=== PATIENT | female | born 1950 | race Caucasian/White ===

== ENCOUNTER 2016-09-17 07:18 | Emergency (ER) | payer MEDICARE, OTHER ==
[2016-09-17] MEDS ORDERED: IPRATROPIUM-ALBUTEROL 3 ML NEB INHALATION STA (07:45)
--- NOTE | 2016-09-17 08:08 | ED ---
URI HPI - General Chief Complaint: Upper Respiratory Infection Stated Complaint: Hx BRONCHITIS, STILL NOT FEELING WELL Time Seen by Provider: 09/17/16 07:32 Source: patient, RN notes reviewed Mode of arrival: ambulatory Limitations: no limitations - History of Present Illness Initial Comments: This is a 66-year-old female with a history of being a smoker many years ago who states she was treated 3 days ago by the nurse practitioner at her doctor's office she was placed on steroids on Zithromax and other medication states she is having worsening symptoms some right CVA area pain especially when she coughs increasing cough. Some phlegm production. The pain is 8/10 which is when she does cough. She denies any overt fevers chills or sweats at this time. MD Complaint: cough, other - Related Data Home Medications Medication Instructions Recorded Confirmed ALPRAZolam [Xanax] 0.25 mg PO Q8HR 09/17/16 09/17/16 Albuterol Inhaler [Ventolin Hfa 1 - 2 puff INHALATION Q6HR PRN 09/17/16 09/17/16 Inhaler] Albuterol Nebulized [Ventolin 2.5 mg INHALATION Q4H 09/17/16 09/17/16 Nebulized] Atorvastatin [Lipitor] 10 mg PO DAILY 09/17/16 09/17/16 Azithromycin [Zithromax] 1 gm PO 09/17/16 Calcium Carbonate [Calcium] 600 mg PO 09/17/16 Citalopram Hydrobromide [CeleXA] 20 mg PO DAILY 09/17/16 09/17/16 DULoxetine HCL [Cymbalta] 60 mg PO DAILY 09/17/16 09/17/16 Dicyclomine [Bentyl] 20 mg PO QID 09/17/16 09/17/16 Esomeprazole Magnesium [NexIUM 22.3 mg PO DAILY 09/17/16 09/17/16 24Hr] Fluticasone/Salmeterol [Advair 1 inhalation PO BID 09/17/16 09/17/16 250-50 Diskus] Hyoscyamine Sulfate [Levbid] 0.375 mg PO BID 09/17/16 09/17/16 Levothyroxine Sodium [Synthroid] 100 mcg PO 09/17/16 Multivitamins, Thera [Multivitamin] 1 tab PO DAILY 09/17/16 09/17/16 [place]-3 Fatty Acids/Fish Oil [Fish 1 each PO 09/17/16 Oil 1,000 mg Softgel] Promethazine HCl/Codeine 5 ml PO 09/17/16 [Prometh-Codein 6.25-10 mg/5 ml] Risedronate Sodium [Actonel] 150 mg PO QMONTH 09/17/16 09/17/16 SUMAtriptan SUCCINATE [Imitrex] 25 mg PO 09/17/16 predniSONE [Deltasone] 20 mg PO BID 09/17/16 09/17/16 Previous Rx's Medication Instructions Recorded Albuterol Sulfate [Proair Hfa] 2 puff INHALATION Q6HR PRN #1 09/17/16 inhaler predniSONE 20 mg PO BID #10 tab 09/17/16 Allergies Allergy/AdvReac Type Severity Reaction Status Date / Time adhesive tape Allergy Unknown Verified 09/17/16 07:28 Review of Systems ROS Statement: Those systems with pertinent positive or pertinent negative responses have been documented in the HPI. ROS Other: All systems not noted in ROS Statement are negative. Past Medical History Past Medical History: Asthma, Cancer, Fibromyalgia, GERD/Reflux, Osteoarthritis (OA), Thyroid Disorder Additional Past Medical History / Comment(s): Migraines History of Any Multi-Drug Resistant Organisms: None Reported Past Surgical History: Adenoidectomy, Bowel Resection, Cholecystectomy, Hernia Repair, Orthopedic Surgery, Tonsillectomy Past Psychological History: Depression, PTSD Smoking Status: Never smoker Past Alcohol Use History: Daily Past Drug Use History: None Reported General Exam - General Exam Comments Initial Comments: Is a well-developed well-nourished awake alert oriented x3 female Limitations: no limitations General appearance: alert, in no apparent distress Head exam: Present: atraumatic, normocephalic, normal inspection Eye exam: Present: normal appearance, PERRL, EOMI. Absent: scleral icterus, conjunctival injection, periorbital swelling ENT exam: Present: mucous membranes moist, other (Mild pharyngeal hyperemia the right hepatic membranes dull but no erythema no definite evidence of fluid the left one is within normal limits. No pharyngeal exudates) Neck exam: Present: normal inspection, other (No stridor JVD or bruits). Absent : tenderness, meningismus, lymphadenopathy Respiratory exam: Present: decreased breath sounds, other (Some crepitation in the right lower lobe). Absent: respiratory distress, wheezes, rales, rhonchi, stridor Cardiovascular Exam: Present: normal rhythm, tachycardia, normal heart sounds. Absent: systolic murmur, diastolic murmur, rubs, gallop, clicks GI/Abdominal exam: Present: soft, normal bowel sounds. Absent: distended, tenderness, guarding, rebound, rigid Extremities exam: Present: normal inspection, full ROM, normal capillary refill. Absent: tenderness, pedal edema, joint swelling, calf tenderness Back exam: Present: normal inspection Neurological exam: Present: alert, oriented X3, CN II-XII intact Psychiatric exam: Present: normal affect, normal mood Skin exam: Present: warm, dry, intact, normal color. Absent: rash Course Vital Signs 09/17/16 09/17/16 09/17/16 07:22 07:45 08:05 Temperature 98.6 F Pulse Rate 118 H 110 H Respiratory 22 18 Rate Blood Pressure 140/77 O2 Sat by Pulse 96 Oximetry 09/17/16 08:19 Temperature Pulse Rate 118 H Respiratory Rate Blood Pressure O2 Sat by Pulse Oximetry Medical Decision Making - Medical Decision Making Reevaluation the patient after initial treatment reveals increased aeration no basilar crepitus or crackles no wheezes. Patient states she is on pro-air has no prescription she'll be placed on an extended steroid prescription and a new pro-air prescription further antibiotic is not indicated at this time. - Radiology Data Radiology results: report reviewed (I did review the x-ray report no acute findings), image reviewed Disposition Clinical Impression: Bronchitis, Asthmatic bronchitis, Bronchospasm, acute Disposition: HOME SELF-CARE Condition: Good Instructions: Bronchospasm (ED), COPD (Chronic Obstructive Pulmonary Disease) ( ED) Prescriptions: Albuterol Sulfate [Proair Hfa] 2 puff INHALATION Q6HR PRN #1 inhaler PRN Reason: Dyspnea predniSONE 20 mg PO BID #10 tab
--- NOTE | 2016-09-17 08:11 | XR ---
EXAMINATION TYPE: XR chest 2V DATE OF EXAM: 09/17/2016 8:03 AM COMPARISON: NONE HISTORY: Trauma per order. Bronchitis type cough for one week per patient. TECHNIQUE: Frontal and lateral views of the chest are obtained. FINDINGS: There is no focal air space opacity, pleural effusion, or pneumothorax seen. The cardiac silhouette size is within normal limits. Anterior fusion cervical spine is partially imaged. Cholecys tectomy clips are noted. IMPRESSION: No acute cardiopulmonary process.
[2016-09-17 08:49] VITALS: BP 142/83; PULSE 107; RESP 20; TEMP 98.3
== END 2016-09-17 08:55 | disposition home or self-care (01) ==
LOC: EC 07:18
DX: J45.909 Unspecified asthma, uncomplicated (principal); Z79.899 Other long term (current) drug therapy; Z79.51 Long term (current) use of inhaled steroids; Z91.048 Other nonmedicinal substance allergy status; E07.9 Disorder of thyroid, unspecified; K21.9 Gastro-esophageal reflux disease without esophagitis; F32.9 Major depressive disorder, single episode, unspecified; F43.10 Post-traumatic stress disorder, unspecified
CPT/HCPCS: 71020; 94640; 99283

== ENCOUNTER 2018-01-05 05:37 | Emergency (ER) | payer MEDICARE ==
[2018-01-05] MEDS ORDERED: MORPHINE SULFATE 4 MG/0.8 ML SYRINGE (INJ) IM STA ×3 (06:00→06:54)
[2018-01-05] MEDS ORDERED: ONDANSETRON ODT 4 MG TAB PO STA (06:01)
[2018-01-05] MEDS ORDERED: ACETAMINOPHEN TAB 500 MG TAB PO STA (06:02)
--- NOTE | 2018-01-05 06:54 | ED ---
Lower Extremity Injury HPI - General Source: patient, family Mode of arrival: ambulatory Limitations: no limitations <Guillermina Huerta - Last Filed: 01/05/18 06:54> <Thomas Bonilla - Last Filed: 01/05/18 08:38> - General Chief Complaint: Extremity Injury, Lower Stated Complaint: leg pain Time Seen by Provider: 01/05/18 05:53 - History of Present Illness Initial Comments: 67 years Old female presents with the left hip pain and the left thigh pain, pain started yesterday after the therapy she denies any fall or any trauma she woke up this morning and she had a hard time ambulating time she tries to move or bear weight to cause her excruciating pain. She denies any headaches no neck stiffness no chest pain or shortness of breath no injury no fall no car accident no weakness of upper or lower extremities (Guillermina Huerta) - Related Data Home Medications Medication Instructions Recorded Confirmed ALPRAZolam [Xanax] 0.25 mg PO Q8HR 09/17/16 01/05/18 Albuterol Inhaler [Ventolin Hfa 1 - 2 puff INHALATION Q6HR PRN 09/17/16 01/05/18 Inhaler] Albuterol Nebulized [Ventolin 2.5 mg INHALATION Q4H 09/17/16 01/05/18 Nebulized] Atorvastatin [Lipitor] 10 mg PO DAILY 09/17/16 01/05/18 Calcium Carbonate [Calcium] 600 mg PO DAILY 09/17/16 01/05/18 Citalopram Hydrobromide [CeleXA] 20 mg PO DAILY 09/17/16 01/05/18 DULoxetine HCL [Cymbalta] 60 mg PO DAILY 09/17/16 01/05/18 Dicyclomine [Bentyl] 20 mg PO QID 09/17/16 01/05/18 Esomeprazole Magnesium [NexIUM 22.3 mg PO DAILY 09/17/16 01/05/18 24Hr] Fluticasone/Salmeterol [Advair 1 inhalation PO BID 09/17/16 01/05/18 250-50 Diskus] Hyoscyamine Sulfate [Levbid] 0.375 mg PO BID 09/17/16 01/05/18 Levothyroxine Sodium [Synthroid] 100 mcg PO DAILY 09/17/16 01/05/18 Multivitamins, Thera [Multivitamin] 1 tab PO DAILY 09/17/16 01/05/18 [place]-3 Fatty Acids/Fish Oil [Fish 1 each PO DAILY 09/17/16 01/05/18 Oil 1,000 mg Softgel] Promethazine HCl/Codeine 5 ml PO DAILY 09/17/16 01/05/18 [Prometh-Codein 6.25-10 mg/5 ml] Risedronate Sodium [Actonel] 150 mg PO QMONTH 09/17/16 01/05/18 SUMAtriptan SUCCINATE [Imitrex] 25 mg PO DAILY 09/17/16 01/05/18 predniSONE [Deltasone] 20 mg PO BID 09/17/16 01/05/18 Previous Rx's Medication Instructions Recorded Albuterol Sulfate [Proair Hfa] 2 puff INHALATION Q6HR PRN #1 09/17/16 inhaler predniSONE 20 mg PO BID #10 tab 09/17/16 Allergies Allergy/AdvReac Type Severity Reaction Status Date / Time adhesive tape Allergy Unknown Verified 01/05/18 05:44 Review of Systems ROS Other: All systems not noted in ROS Statement are negative. <Guillermina Huerta - Last Filed: 01/05/18 06:54> ROS Other: All systems not noted in ROS Statement are negative. <Thomas Bonilla - Last Filed: 01/05/18 08:38> ROS Statement: Those systems with pertinent positive or pertinent negative responses have been documented in the HPI. Past Medical History Past Medical History: Asthma, Cancer, Fibromyalgia, GERD/Reflux, Osteoarthritis (OA), Thyroid Disorder Additional Past Medical History / Comment(s): Migraines History of Any Multi-Drug Resistant Organisms: None Reported Past Surgical History: Adenoidectomy, Bowel Resection, Cholecystectomy, Hernia Repair, Orthopedic Surgery, Tonsillectomy Past Psychological History: Anxiety, Depression, PTSD Smoking Status: Former smoker Past Alcohol Use History: Occasional Past Drug Use History: None Reported <Guillermina Huerta - Last Filed: 01/05/18 06:54> General Exam Limitations: no limitations <Guillermina Huerta - Last Filed: 01/05/18 06:54> <Thomas Bonilla - Last Filed: 01/05/18 08:38> - General Exam Comments Initial Comments: General: The patient is awake and mild to moderate pain Skin: Skin is warm and dry and no rashes or lesions are noted. Shingles so no rash noticed Eye: Pupils are equal, round and reactive to light, extra-ocular movements are intact; there is normal conjunctiva bilaterally. Ears, nose, mouth and throat: There are moist mucous membranes and no oral lesions. Neck: The neck is supple, there is no tenderness or JVD. Cardiovascular: There is a regular rate and rhythm. No murmur, rub or gallop is appreciated. Respiratory: To auscultation bilateral, no wheezing no rhonchi no distress respiratory caballero noticed Gastrointestinal: Soft, non-distended, non-tender abdomen without masses or organomegaly noted. There is no rebound or guarding present. Bowel sounds are unremarkable. Back: There is no tenderness to palpation in the midline. There is no obvious deformity. Musculoskeletal: He is tender over the left greater trochanter and any movement of the left hip joint aggravates the pain Neurological: CN II-XII intact, Cranial nerves III through XII are intact. There are no obvious motor or sensory deficits. Coordination appears grossly intact. Speech is normal. Psychiatric: Cooperative, appropriate mood & affect, normal judgment. (Guillermina Huerta) Course <Guillermina Huerta - Last Filed: 01/05/18 06:54> <Thomas Bonilla - Last Filed: 01/05/18 08:38> Vital Signs 01/05/18 01/05/18 05:40 06:52 Temperature 97.8 F Pulse Rate 96 94 Respiratory 20 16 Rate Blood Pressure 142/92 178/89 O2 Sat by Pulse 98 100 Oximetry The patient is reassessed at 7 AM on her pain is not any better d-dimer is unremarkable x-ray of the left hip and left femur is negative as well considering that and will proceed with a CT of the left hip, endorse patient to Dr judd at 0705 (Guillermina Huerta) - Reevaluation(s) Reevaluation #1: 01/05/18 08:37 Patient has improved pain control, able to ambulate (Thomas Bonilla) Medical Decision Making <Guillermina Huerta - Last Filed: 01/05/18 06:54> - Radiology Data Radiology results: report reviewed (CT hip is negative for fracture), image reviewed <Thomas Bonilla - Last Filed: 01/05/18 08:38> - Medical Decision Making 63 female with acute on chronic hip pain history of bursitis going through therapy with increased pain secondary to therapy, no injury or fracture noted area. Patient can be discharged home (Thomas Bonilla) - Lab Data Lab Results 01/05/18 Range/Units 06:26 D-Dimer 0.34 (<0.60) mg/L FEU Disposition <Guillermina Huerta - Last Filed: 01/05/18 06:54> Is patient prescribed a controlled substance at d/c from ED?: No <Thomas Bonilla - Last Filed: 01/05/18 08:38> Clinical Impression: Hip pain, Left hip pain Disposition: HOME SELF-CARE Condition: Good Instructions: Hip Pain (ED) Referrals: Opal Mcghee MD [Primary Care Provider] - 1-2 days
--- NOTE | 2018-01-05 06:55 | XR ---
EXAMINATION TYPE: XR femur LT, XR Hip Complete LT DATE OF EXAM: 01/05/2018 CLINICAL HISTORY: Pain without injury. TECHNIQUE: Two views of the left hip pain and femur are obtained. COMPARISON: None FINDINGS: There is no acute fracture or dislocation in the left hip. There is mild axial joint space loss. No suspicious focal lytic or sclerotic lesion is seen. Overlying soft tissue is unremarkable. There is no acute fracture or dislocation seen in the left femur. The left knee joint shows apparent patella devika. Overlying soft tissue is unremarkable. IMPRESSION: There is no acute fracture or dislocation in the left hip or femur.
--- NOTE | 2018-01-05 08:02 | CT ---
EXAMINATION TYPE: CT hip LT wo con DATE OF EXAM: 01/05/2018 COMPARISON: NONE HISTORY: Left leg pain CT DLP: 464 mGycm Automated exposure control for dose reduction was used. Unenhanced CT of the left hip was performed with bone and soft tissue window settings submitted. FINDINGS: I do not see evidence for displaced fracture or impacted fracture of the left hip are visualized port ions of the pelvis. Mild degenerative changes noted of the left hip joint space. Severe to disc desic cation at L5-S1. Suspect central stenosis at L4-5. Calcified leiomyomas of the uterus identified. IMPRESSION: NO EVIDENCE FOR FRACTURE OR DISLOCATION. DEGENERATIVE CHANGES LUMBAR SPINE WITH SUSPECTED CENTRAL LARY NOSIS AT L4-5.
[2018-01-05] MEDS ORDERED: DEXAMETHASONE SOD PHOSPHATE 10 MG/ML 1 ML VIAL IV STA (09:33)
[2018-01-05] MEDS ORDERED: HYDROcodone/APAP 5-325MG 1 EACH TAB PO STA (09:33)
[2018-01-05] MEDS ORDERED: KETOROLAC 30 MG/ML 1 ML VIAL IVP STA (09:33)
[2018-01-05] MEDS ORDERED: DEXAMETHASONE SOD PHOSPHATE 10 MG/ML 1 ML VIAL IM STA (09:42)
[2018-01-05] MEDS ORDERED: IBUPROFEN 800 MG TAB PO STA (09:43)
[2018-01-05 09:53] VITALS: BP 148/86; PULSE 90; RESP 18; TEMP 97.6
== END 2018-01-05 09:55 | disposition home or self-care (01) ==
LOC: EC 05:37
DX: M25.552 Pain in left hip (principal); M79.652 Pain in left thigh; J45.909 Unspecified asthma, uncomplicated; M19.90 Unspecified osteoarthritis, unspecified site; E07.9 Disorder of thyroid, unspecified; K21.9 Gastro-esophageal reflux disease without esophagitis; M79.7 Fibromyalgia; G43.909 Migraine, unspecified, not intractable, without status migrainosus; F32.9 Major depressive disorder, single episode, unspecified; F41.9 Anxiety disorder, unspecified; F43.10 Post-traumatic stress disorder, unspecified; Z87.891 Personal history of nicotine dependence; Z79.51 Long term (current) use of inhaled steroids; Z79.52 Long term (current) use of systemic steroids; Z79.899 Other long term (current) drug therapy; Z91.048 Other nonmedicinal substance allergy status; Z53.8 Procedure and treatment not carried out for other reasons
CPT/HCPCS: 99284; 96372 ×3; 36415; 85379; 73502; 73552; 73700; J1100; J2270

== ENCOUNTER → 2018-03-07 | Outpatient (CLI) | payer MEDICARE ==
[2018-03-07 15:22] LABS: Basophils # (A) 0.1 k/uL (0-0.2); Basophils % (A) 1 %; Eosinophils # (A) 0.1 k/uL (0-0.7); Eosinophils % (A) 1 %; HCT 34.3 % (34.0-46.0); HGB 11.9 gm/dL (11.4-16.0); Lymphocytes # (A) 1.7 k/uL (1.0-4.8); Lymphocytes % (A) 25 %; MCHC 34.6 g/dL (31.0-37.0); MCV 101.1 fL (80.0-100.0); Macrocytosis Slight; Mean Platelet Volume 6.6; Monocytes # (A) 0.4 k/uL (0-1.0); Monocytes % (A) 6 %; Neutrophils # (A) 4.4 k/uL (1.3-7.7); Neutrophils % (A) 65 %; Platelet Count 295 k/uL (150-450); RDW 13.1 % (11.5-15.5); WBC 6.8 k/uL (3.8-10.6)
[2018-03-07 19:30] LABS: Protein, Total 6.2 g/dL (6.2-8.2)
[2018-03-08 11:45] LABS: Albumin 3.79 g/dL (3.80-4.90); Gamma Globulin 0.55 g/dL (0.70-1.50)
== END | disposition home or self-care (01) ==
LOC: LABWHC1 14:50
PROVIDERS: ATTEND Physical Medicine & Rehabilitation
DX: M41.86 Other forms of scoliosis, lumbar region (principal); M51.17 Intervertebral disc disorders with radiculopathy, lumbosacral region; M47.817 Spondylosis without myelopathy or radiculopathy, lumbosacral region; M54.5 Low back pain
CPT/HCPCS: 36415; 84165; 85025

== ENCOUNTER → 2018-04-16 | Outpatient (CLI) | payer MEDICARE ==
--- NOTE | 2018-04-16 18:40 | BD ---
EXAMINATION TYPE: Axial Bone Density DATE OF EXAM: 04/16/2018 COMPARISON: 09/06/2011 CLINICAL HISTORY: 67-year-old female screening for osteoporosis Height: 60.5 IN Weight: 133 LBS RISK FACTORS HISTORY OF: Active: MODERATE Diet low in dairy products/other sources of calcium: YES Postmenopausal woman: AGE 49 MEDICATIONS: Thyroid Medications: YES Which medication: Synthroid How Lon+ YEARS Osteoporosis Medications: NOT NOW Which medication: Actonel FOSAMAX How Long: TOOK FOR 20 YEARS STOPPED 1 YEAR AGO Additional Medications: SYNTHROID, ANXIETY MEDS, DEPRESSION MEDS, LIPITOR, LEVBID, TYLENOL WITH CODEI NE, PAIN MEDS, EXAM MEASUREMENTS: Bone mineral densitometry was performed using the [employer] System. Bone mineral density as measured about the Lumbar spine is: ----- L1-L4(G/cm2): 1.423 T Score Values are as follows: ----- L2: 1.6 ----- L3: 2.1 ----- L4: 2.7 ----- L1-L4: 1.5 Bone mineral density has: Increased 10.7% since study of: 09/06/2011 Bone mineral density about the R hip (g/cm2): 0.713 Bone mineral density about the L hip (g/cm2): 0.741 T Score values are as follows: -----R Neck: -2.3 -----L Neck: -2.1 -----R Total: -1.7 -----L Total: -1.7 Bone mineral density has: Increased 0.3% since study of: 09/06/2011 IMPRESSION: Osteopenia (T Score between -2.5 and -1). There is slightly increased risk of fracture and the patient may be considered for treatment. Re-Screen 2-5 years. NOTE: T-SCORE=SD OF THE YOUNG ADULT MEAN.
--- NOTE | 2018-04-17 13:02 | MM ---
Reason for exam: screening (asymptomatic). Last mammogram was performed 5 years and 6 months ago. History: Patient is postmenopausal. Benign right mammotome panel of the right breast, March 27, 2012. Benign excisional biopsy of the right breast. Took estrogen for 5 years. Took progesterone for 5 years. Physical Findings: A clinical breast exam by your physician is recommended on an annual basis and results should be correlated with mammographic findings. MG 3D Screening Mammo W/Cad Bilateral CC and MLO view(s) were taken. Prior study comparison: October 24, 2012, CAD bilateral diagnostic mammogram. August 29, 2011, bilateral digital screening mammo w/CAD. The breast tissue is heterogeneously dense. This may lower the sensitivity of mammography. Previous mammotome biopsy in the right breast. There is chronic nodularity in the right breast. No significant changes when compared with prior studies. ASSESSMENT: Benign, BI-RAD 2 RECOMMENDATION: Routine screening mammogram of both breasts in 1 year.
== END | disposition home or self-care (01) ==
LOC: RADMAMWWP 07:53
PROVIDERS: ATTEND Family Medicine
DX: Z12.31 Encounter for screening mammogram for malignant neoplasm of breast (principal); M85.80 Other specified disorders of bone density and structure, unspecified site
CPT/HCPCS: 77063; 77067; 77080

== ENCOUNTER → 2018-08-04 | Outpatient (CLI) | payer MEDICARE ==
--- NOTE | 2018-08-04 10:36 | MR ---
MRI CERVICAL SPINE: CLINICAL HISTORY: Cervicalgia, cervical region radiculopathy, cervical spondylosis, history of cervic al fusion C3-C7 level, hyperreflexia, and post laminectomy syndrome all per order. Migraine headaches with neck pain into arms causing numbness and tingling into fingers with surgery 17 years ago per adeline jj. TECHNIQUE: Multiplanar, multisequence imaging of the cervical spine is performed without IV contrast. COMPARISON: None. FINDINGS: Sagittal images of the cervical spine show the craniocervical junction to appear within nor mal limits. The cervical and upper thoracic spinal cord is normal in course, caliber, and signal. Th ere is levoconvex scoliotic curvature positioning centered in the upper thoracic spine on coronal israel ges. There is artifact from long segment surgery C3-C7 levels. There is mild disc space narrowing wit h small posterior disc herniation C2-C3 level effacing anterior thecal sac. There is grade 1 anteroli sthesis of C7 on T1 sagittal image 8. There are small posterior disc herniations effacing anterior th ecal sac at C7-T1 and T2-T3 level on sagittal images. The bone marrow signal intensity is overall he terogeneous below surgical level, there is small hemangioma at anterior inferior T4 endplate sagittal image 3. Axial images show less prominent disc herniation C2-C3 level minimally effacing anterior thecal sac, there are left-sided uncovertebral facet degenerative changes however causing mild to moderate left-s ided neural foraminal narrowing axial image 56. Right-sided neural foramen is patent. Axial images at C3-C4 through C6-C7 level show artifact from surgical change. Spinal canal is grossly preserved and bilateral neural foramina are patent. Axial images at C7-T1 level show spondylolisthesis but bilateral neural foramina are patent and spina l canal is preserved IMPRESSION: Long segment usual C3-C7 level, slight grade 1 anterolisthesis C7 on T1 is noted. Some de generative change C2-C3, C7-T1, and T2-T3 levels is appreciated.
== END | disposition home or self-care (01) ==
LOC: RADMRIMAIN 09:43
PROVIDERS: ATTEND Physical Medicine & Rehabilitation
DX: M43.13 Spondylolisthesis, cervicothoracic region (principal); M47.23 Other spondylosis with radiculopathy, cervicothoracic region; D18.09 Hemangioma of other sites; Z98.1 Arthrodesis status
CPT/HCPCS: 72141

== ENCOUNTER 2018-08-25 02:46 | Emergency (ER) | payer MEDICARE ==
[2018-08-25 02:54] VITALS: TEMP 97.6
[2018-08-25] MEDS ORDERED: diphenhydrAMINE 50 MG/ML 1 ML VIAL IVP STA (03:24)
[2018-08-25] MEDS ORDERED: METOCLOPRAMIDE 5 MG/ML 2 ML VIAL IVP STA (03:24)
[2018-08-25] MEDS ORDERED: SODIUM CHLORIDE 0.9% 1,000 ML IV ONE (03:24)
--- NOTE | 2018-08-25 03:32 | ED ---
Headache HPI - General Chief Complaint: Headache Stated Complaint: Migraine Time Seen by Provider: 08/25/18 02:58 Mode of arrival: wheelchair Limitations: no limitations - History of Present Illness Initial Comments: Bharati is a 67-year-old female with history of chronic migraines for which she's been prescribed Imitrex. Patient presents the emergency department today for evaluation of migraine headache for 3 days duration. Patient reports she has taken Imitrex 2 times and drinking a Coca-Cola because caffeine usually helps her headaches however her headache persists. Headaches described as a global throbbing headache. Similar to previous migraines. Headache was not sudden in onset, is not associated with fever or trauma. - Related Data Home Medications Medication Instructions Recorded Confirmed ALPRAZolam [Xanax] 0.125 - 0.25 mg PO HS PRN 09/17/16 01/05/18 Atorvastatin [Lipitor] 10 mg PO DAILY 09/17/16 01/05/18 Calcium Carbonate [Calcium] 1,200 mg PO DAILY 09/17/16 01/05/18 DULoxetine HCL [Cymbalta] 60 mg PO DAILY 09/17/16 01/05/18 Dicyclomine [Bentyl] 20 - 40 mg PO Q8H PRN 09/17/16 01/05/18 Esomeprazole Magnesium [NexIUM 22.3 mg PO DAILY 09/17/16 01/05/18 24Hr] Fluticasone/Salmeterol [Advair 1 puff INHALATION RT-DAILY 09/17/16 01/05/18 250-50 Diskus] Levothyroxine Sodium [Synthroid] 100 mcg PO DAILY 09/17/16 01/05/18 Multivitamins, Thera [Multivitamin] 1 tab PO DAILY 09/17/16 01/05/18 [place]-3 Fatty Acids/Fish Oil [Fish 1 cap PO DAILY 09/17/16 01/05/18 Oil 1,000 mg Softgel] Risedronate Sodium [Actonel] 150 mg PO Q30D 09/17/16 01/05/18 SUMAtriptan SUCCINATE [Imitrex] 25 mg PO DAILY PRN 09/17/16 01/05/18 Albuterol Sulfate [Proair Hfa] 2 puff INHALATION RT-QID PRN 01/05/18 01/05/18 Citalopram Hydrobromide [CeleXA] 40 mg PO DAILY 01/05/18 01/05/18 Previous Rx's Medication Instructions Recorded HYDROcodone/APAP 5-325MG [[place] 1 tab PO Q6HR PRN #10 tab 01/05/18 5-325] Allergies Allergy/AdvReac Type Severity Reaction Status Date / Time adhesive tape Allergy Severe Rash/Hives Verified 08/25/18 02:53 Review of Systems ROS Statement: Those systems with pertinent positive or pertinent negative responses have been documented in the HPI. ROS Other: All systems not noted in ROS Statement are negative. Past Medical History Past Medical History: Asthma, Cancer, Fibromyalgia, GERD/Reflux, Osteoarthritis (OA), Thyroid Disorder Additional Past Medical History / Comment(s): Migraines History of Any Multi-Drug Resistant Organisms: None Reported Past Surgical History: Adenoidectomy, Bowel Resection, Cholecystectomy, Hernia Repair, Orthopedic Surgery, Tonsillectomy Past Psychological History: Anxiety, Depression, PTSD Smoking Status: Former smoker Past Alcohol Use History: Occasional Past Drug Use History: None Reported General Exam - General Exam Comments Initial Comments: Physical Exam GENERAL: Patient is well-developed and well-nourished. Patient is nontoxic and well- hydrated and is in no distress. HENT: Normocephalic, Atraumatic. EYES: PERRL, EOMI No papiledema PULMONARY: Unlabored respirations. No audible rales rhonchi or wheezing was noted. CARDIOVASCULAR: There is a regular rate and rhythm without any murmurs gallops or rubs. ABDOMEN: Soft and nontender with normal bowel sounds. SKIN: Skin is clear with no lesions or rashes and otherwise unremarkable. : Deferred NEUROLOGIC: Patient is alert and oriented x3. Moving all extremities spontaneously CN II-XII intact MUSCULOSKELETAL: Normal extremities with adequate strength and full range of motion. No lower extremity swelling or edema. No calf tenderness. PSYCHIATRIC: Normal psychiatric evaluation. Limitations: no limitations Limitations: no limitations Course Vital Signs 08/25/18 08/25/18 02:50 05:11 Temperature 97.6 F 97.6 F Pulse Rate 89 83 Respiratory 19 18 Rate Blood Pressure 160/110 159/92 O2 Sat by Pulse 100 96 Oximetry Medical Decision Making - Medical Decision Making Patient with a history of chronic migraines, migraine for 3 days duration not responding to home medications IV fluids, Reglan and Benadryl ordered Patient with persistent headache after fluids Reglan and Benadryl Morphine and head CT were ordered Head CT with no acute findings Patient was able to sleep comfortably reports significant improvement in her headache is comfortable with the plan for discharge home at this time Disposition Clinical Impression: Headache, Migraine Disposition: HOME SELF-CARE Condition: Stable Instructions: Acute Headache (ED) Is patient prescribed a controlled substance at d/c from ED?: No Referrals: Opal Mcghee MD [Primary Care Provider] - 1-2 days Time of Disposition: 05:41
[2018-08-25] MEDS ORDERED: MORPHINE SULFATE 4 MG/ML SYRINGE IM STA (04:03)
[2018-08-25] MEDS ORDERED: MORPHINE SULFATE 4 MG/ML SYRINGE IV STA (04:03)
--- NOTE | 2018-08-25 04:49 | CT ---
EXAMINATION TYPE: CT brain wo con DATE OF EXAM: 08/25/2018 COMPARISON: None HISTORY: headache CT DLP: 1015.40 mGycm Automated exposure control for dose reduction was used. FINDINGS: There is cerebral cortical atrophy. There is no mass effect nor midline shift. There is no sign of in tracranial hemorrhage. Calvarium is intact. IMPRESSION: CEREBRAL ATROPHY. NO ACUTE INTRACRANIAL ABNORMALITY.
[2018-08-25 05:12] VITALS: BP 159/92; PULSE 83; RESP 18
== END 2018-08-25 05:55 | disposition home or self-care (01) ==
LOC: EC 02:46
DX: G43.909 Migraine, unspecified, not intractable, without status migrainosus (principal); K21.9 Gastro-esophageal reflux disease without esophagitis; E07.9 Disorder of thyroid, unspecified; F32.9 Major depressive disorder, single episode, unspecified; F41.9 Anxiety disorder, unspecified; M19.90 Unspecified osteoarthritis, unspecified site; M79.7 Fibromyalgia; J45.909 Unspecified asthma, uncomplicated; Z79.899 Other long term (current) drug therapy; Z79.51 Long term (current) use of inhaled steroids; Z91.048 Other nonmedicinal substance allergy status; Z87.891 Personal history of nicotine dependence
CPT/HCPCS: 70450; 99283; 96374; 96375 ×2; 96361; J2270; J1200; J2765

== ENCOUNTER → 2018-10-11 | Outpatient (CLI) | payer MEDICARE ==
--- NOTE | 2018-10-11 11:52 | CT ---
EXAMINATION TYPE: CT cervical spine wo con DATE OF EXAM: 10/11/2018 COMPARISON: Correlation MRI 08/04/2018 HISTORY: 68-year-old female pain, Other cervical disc displacement, unspecified cervical region TECHNIQUE: Contiguous axial scanning of the cervical spine without IV contrast. Coronal and sagittal reconstructions performed. CT DLP: 237.3 mGycm Automated exposure control for dose reduction was used. FINDINGS: No craniocervical junction abnormality, predental space widening, or prevertebral soft tissue swellin g. Scattered mild dorsal thickening in the maxillary sinuses. Degenerative changes at the C1 dens articulation. Scattered uncovertebral joint arthropathy. Degenerative disc disease both above and below the patient 's C3-C7 ACDF. There is degenerative disc disease is present at C2-C3 and C7-T1. There is facet arthr opathy at C7-T1 as well with grade 1 anterolisthesis. The anterior margin of the C7 screws may extend into the disc interspace. Some scattered residual posterior osteophytic ridging along the fused levels but no significant spina l canal enlargement. Assessment of spinal canal from C5 and below is limited due to artifacts. Given the patient's rightward truncal shift on coronal series, suspect underlying scoliosis which may be better evaluated on the patient's lumbar CT also performed today. At C2-C3, facet and uncovertebral joint arthropathy on the left results in moderate to severe left ne uroforaminal stenosis. At C4-C5, there is hyperostotic changes at the facet and uncovertebral joints contributing to mild le ft neural foraminal stenosis. Additional grade 1 anterolisthesis at T1-T2 and T2-T3. Facet arthropathy mildly narrowing the neurofo ramen at these levels. IMPRESSION: 1. STATUS POST C3-C7 ACDF. THERE IS ADVANCED DEGENERATIVE DISC DISEASE ABOVE AND BELOW THE FUSION AT C2-C3 AND C7-T1. 2. THE INFERIOR MARGIN OF THE C7 SCREWS MAY EXTEND INTO THE C7-T1 DISC INTERSPACE. 3. HYPEROSTOTIC CHANGES OF THE FACETS AND UNCOVERTEBRAL JOINTS. THIS CONTRIBUTES TO MODERATE TO SEVER E LEFT NEURAL FORAMINAL STENOSIS AT C2-C3 AND MILD LEFT NEUROFORAMINAL STENOSIS AT C4-C5. 4. GRADE 1 ANTEROLISTHESIS AT C7-T1, T1-T2, AND T2-T3.
--- NOTE | 2018-10-11 11:57 | CT ---
EXAMINATION TYPE: CT lumbar spine wo con DATE OF EXAM: 10/11/2018 11:41 AM COMPARISON: None HISTORY: Spondylolisthesis, lumbar region CT DLP: 476.3 mGycm Automated exposure control for dose reduction was used. Unenhanced CT of the lumbar spine was performed. Bone and soft tissue window settings are submitted as well as coronal and sagittal reconstructions. There is a scoliotic curvature. L1-L2: Severe degenerative disc disease with discogenic marrow changes. Hypertrophic change facets ar e noted. There is a 2 mm retrolisthesis of L1 on L2. There is moderate right-sided neural foraminal e ncroachment. L2-L3: Mild degenerative disc disease. There is facet arthropathy and circumferential disc bulging. N eural foramina remain patent. Borderline central stenosis. L3-L4: Degenerative disc disease with posterior spondylosis. Facet arthropathy and ligamentum flavum hypertrophy with circumferential disc bulging. Borderline to mild central stenosis and bilateral fora gregg encroachment. L4-L5: There is a slight grade 1 anterolisthesis with severe facet arthropathy. Diffuse disc bulging contributes to central stenosis, bilateral lateral recess stenosis and moderate bilateral neural fora gregg encroachment. No spondylolysis. L5-S1: Severe degenerative disc disease with vacuum disc. There is facet arthropathy. Moderate to sev ere left-sided foraminal protrusion secondary to hypertrophic changes. 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 Calcifications in the final imag e appear to be contained within the uterus and likely represent calcified uterine fibroid. Correlate clinically. Postcholecystectomy changes noted. Accessory spleen noted. IMPRESSION: 1. Scoliosis with multilevel degenerative disc disease and severe changes at L1-2 and L5-S1. 2. Grade 1 anterolisthesis L4 on L5 with severe facet arthropathy. Disc bulging contributes to centra l stenosis and bilateral foraminal encroachment. 3. Degenerative disc disease and hypertrophic changes greater on the left at L5-S1 resulting in moder ate to severe left-sided foraminal encroachment. 4. Borderline to mild central stenosis L3-L4 due to hypertrophic changes and disc bulging. 5. The pelvis is partially included and there is a soft tissue density containing calcifications like ly representing the upper margin of the uterus and calcified uterine fibroids.
== END | disposition home or self-care (01) ==
LOC: RADCTMAIN 11:02
PROVIDERS: ATTEND Neurological Surgery
DX: M99.71 Connective tissue and disc stenosis of intervertebral foramina of cervical region (principal); M43.13 Spondylolisthesis, cervicothoracic region; M50.33 Other cervical disc degeneration, cervicothoracic region
CPT/HCPCS: 72125; 72131

== ENCOUNTER 2021-02-09 09:46 | Inpatient (IN) | payer MEDICARE ==
[2021-02-09] MEDS ORDERED: SODIUM CHLORIDE 0.9% 1,000 ML IV STA (10:27)
--- NOTE | 2021-02-09 10:37 | ED ---
General Adult HPI <Liam Garsia - Last Filed: 02/09/21 12:52> - General Source: patient, family, RN notes reviewed Mode of arrival: ambulatory Limitations: no limitations <Christos Urias - Last Filed: 02/09/21 13:05> - General Chief complaint: Shortness of Breath Stated complaint: SOB Time Seen by Provider: 02/09/21 10:03 - History of Present Illness Initial comments: 70-year-old female with a past medical history of asthma, migraines, fibromyalgia, GERD, presents to the emergency room for shortness of breath. Patient states that she has been short of breath with a cough for quite some time however it worsened over the past 3 days. She thinks that she has actually been short of breath with a cough since November when she received her second coronavirus vaccination. States she is coughing up phlegm. Patient states that this weekend at her shortness of breath has worsened especially with activity. Patient denies shortness of breath worsening while lying flat. Denies leg swelling. Denies history of heart failure. Patient has been seeing primary care for this and has undergone a course of azithromycin as well as just finished a course of Bactrim without improvement. She has been on a course of steroids as well. She has not had any fevers that she is aware of. Patient has no other complaints at this time including chest pain, abdominal pain, nausea or vomiting, headache, or visual changes. (Christos Urias) - Related Data Home Medications Medication Instructions Recorded Confirmed ALPRAZolam [Xanax] 0.25 mg PO Q8H PRN 09/17/16 02/09/21 DULoxetine HCL [Cymbalta] 60 mg PO DAILY 09/17/16 02/09/21 Dicyclomine [Bentyl] 20 mg PO QID PRN 09/17/16 02/09/21 Esomeprazole Magnesium [NexIUM 22.3 mg PO DAILY 09/17/16 02/09/21 24Hr] Levothyroxine Sodium [Synthroid] 100 mcg PO DAILY 09/17/16 02/09/21 SUMAtriptan SUCCINATE [Imitrex] 25 mg PO DAILY PRN 09/17/16 02/09/21 Citalopram Hydrobromide [CeleXA] 10 mg PO DAILY 01/05/18 02/09/21 Acetaminophen/Chlorpheniramine 1 tab PO Q4H PRN 02/09/21 02/09/21 [Coricidin Hbp Cold & Flu Tab] Acetaminophen/Diphenhydramine 2 tab PO HS PRN 02/09/21 02/09/21 [Tylenol PM 500-25mg] Albuterol Nebulized [Ventolin 2.5 mg INHALATION RT-Q4H PRN 02/09/21 02/09/21 Nebulized] Atorvastatin [Lipitor] 20 mg PO HS 02/09/21 02/09/21 Calcium/D3/Zinc/Copper/Salma 1 tab PO DAILY 02/09/21 02/09/21 [Citracal-D3 Maximum Plus Caplt] Meloxicam [Mobic] 15 mg PO DAILY PRN 02/09/21 02/09/21 Montelukast [Singulair] 10 mg PO DAILY 02/09/21 02/09/21 amLODIPine [Norvasc] 10 mg PO DAILY 02/09/21 02/09/21 methocarbamoL [Methocarbamol] 500 mg PO QID PRN 02/09/21 02/09/21 Allergies Allergy/AdvReac Type Severity Reaction Status Date / Time adhesive tape Allergy Severe Rash/Hives Verified 02/09/21 11:33 Review of Systems ROS Other: All systems not noted in ROS Statement are negative. <Liam Garsia - Last Filed: 02/09/21 12:52> ROS Other: All systems not noted in ROS Statement are negative. <Christos Urias P - Last Filed: 02/09/21 13:05> ROS Statement: Those systems with pertinent positive or pertinent negative responses have been documented in the HPI. Past Medical History Past Medical History: Asthma, Cancer, Fibromyalgia, GERD/Reflux, Osteoarthritis (OA), Thyroid Disorder Additional Past Medical History / Comment(s): Migraines History of Any Multi-Drug Resistant Organisms: None Reported Past Surgical History: Adenoidectomy, Bowel Resection, Cholecystectomy, Hernia Repair, Orthopedic Surgery, Tonsillectomy Past Psychological History: Anxiety, Depression, PTSD Smoking Status: Never smoker Past Alcohol Use History: Occasional Past Drug Use History: None Reported <Christos Urias - Last Filed: 02/09/21 13:05> General Exam Limitations: no limitations General appearance: alert, in no apparent distress Head exam: Present: atraumatic, normocephalic, normal inspection Eye exam: Present: normal appearance, PERRL, EOMI. Absent: scleral icterus, conjunctival injection, periorbital swelling ENT exam: Present: normal exam, mucous membranes moist Neck exam: Present: normal inspection, full ROM. Absent: tenderness, meningismus, lymphadenopathy Respiratory exam: Present: normal lung sounds bilaterally. Absent: respiratory distress, wheezes, rales, rhonchi, stridor Cardiovascular Exam: Present: regular rate, normal rhythm, normal heart sounds. Absent: systolic murmur, diastolic murmur, rubs, gallop, clicks GI/Abdominal exam: Present: soft, normal bowel sounds. Absent: distended, tenderness, guarding, rebound, rigid Neurological exam: Present: alert <Christos Urias - Last Filed: 02/09/21 13:05> Course <Liam Garsia - Last Filed: 02/09/21 12:52> Vital Signs 02/09/21 02/09/21 02/09/21 09:52 11:00 11:31 Temperature 97.3 F L Pulse Rate 98 88 Respiratory 18 18 18 Rate Blood Pressure 119/75 127/73 O2 Sat by Pulse 99 98 Oximetry 02/09/21 12:00 Temperature Pulse Rate 98 Respiratory 18 Rate Blood Pressure 127/73 O2 Sat by Pulse 97 Oximetry - Reevaluation(s) Reevaluation #1: 02/09/21 12:52 PA supervision did personally evaluate this case patient presented to the emergency Department with complaints of dyspnea he was however any workup found be hyponatremic. Due to the sodium and symptoms patient be admitted case to be discussed with Dr. Kunz (Liam Garsia) EKG Findings - EKG Comments: EKG Findings:: Normal sinus rhythm, ventricular rate 88, AR interval 152, QTC 438 <Christos Urias - Last Filed: 02/09/21 13:05> Medical Decision Making - Lab Data Result diagrams: 02/09/21 10:53 02/09/21 10:53 <Liam Garsia - Last Filed: 02/09/21 12:52> - Lab Data Result diagrams: 02/09/21 10:53 02/09/21 10:53 <Christos Urias - Last Filed: 02/09/21 13:05> - Medical Decision Making Vitals are stable. Patient is not in any respiratory distress. EKG nonischemic. CBC unremarkable. CMP does show hyponatremia. Wrist x-ray shows no acute process. At this time patient will be admitted for sob and hyponatremia. Accepted by Dr. Kunz. (Christos Urias) - Lab Data Lab Results 02/09/21 02/09/21 02/09/21 Range/Units 10:53 10:53 10:53 WBC 5.3 (3.8-10.6) k/uL RBC 3.58 L (3.80-5.40) m/uL Hgb 12.5 (11.4-16.0) gm/dL Hct 35.0 (34.0-46.0) % MCV 97.9 (80.0-100.0) fL MCH 35.1 H (25.0-35.0) pg MCHC 35.8 (31.0-37.0) g/dL RDW 13.6 (11.5-15.5) % Plt Count 187 (150-450) k/uL MPV 7.2 Neutrophils % 71 % Lymphocytes % 18 % Monocytes % 6 % Eosinophils % 3 % Basophils % 0 % Neutrophils # 3.7 (1.3-7.7) k/uL Lymphocytes # 1.0 (1.0-4.8) k/uL Monocytes # 0.3 (0-1.0) k/uL Eosinophils # 0.1 (0-0.7) k/uL Basophils # 0.0 (0-0.2) k/uL PT 9.4 (9.0-12.0) sec INR 0.9 (<1.2) APTT 20.5 L (22.0-30.0) sec D-Dimer 0.38 (<0.60) mg/L FEU Sodium 123 L (137-145) mmol/L Potassium 4.3 (3.5-5.1) mmol/L Chloride 93 L (98-107) mmol/L Carbon Dioxide 22 (22-30) mmol/L Anion Gap 8 mmol/L BUN 9 (7-17) mg/dL Creatinine 0.73 (0.52-1.04) mg/dL Est GFR (CKD-EPI)AfAm >90 (>60 ml/min/1.73 sqM) Est GFR (CKD-EPI)NonAf 83 (>60 ml/min/1.73 sqM) Glucose 86 (74-99) mg/dL Calcium 8.9 (8.4-10.2) mg/dL Total Bilirubin 0.5 (0.2-1.3) mg/dL AST 32 (14-36) U/L ALT 23 (4-34) U/L Alkaline Phosphatase 76 (38-126) U/L Troponin I (0.000-0.034) ng/mL NT-Pro-B Natriuret Pep pg/mL Total Protein 5.9 L (6.3-8.2) g/dL Albumin 3.6 (3.5-5.0) g/dL Coronavirus (PCR) (Not Detectd) 02/09/21 02/09/21 02/09/21 Range/Units 10:53 10:53 11:27 WBC (3.8-10.6) k/uL RBC (3.80-5.40) m/uL Hgb (11.4-16.0) gm/dL Hct (34.0-46.0) % MCV (80.0-100.0) fL MCH (25.0-35.0) pg MCHC (31.0-37.0) g/dL RDW (11.5-15.5) % Plt Count (150-450) k/uL MPV Neutrophils % % Lymphocytes % % Monocytes % % Eosinophils % % Basophils % % Neutrophils # (1.3-7.7) k/uL Lymphocytes # (1.0-4.8) k/uL Monocytes # (0-1.0) k/uL Eosinophils # (0-0.7) k/uL Basophils # (0-0.2) k/uL PT (9.0-12.0) sec INR (<1.2) APTT (22.0-30.0) sec D-Dimer (<0.60) mg/L FEU Sodium (137-145) mmol/L Potassium (3.5-5.1) mmol/L Chloride (98-107) mmol/L Carbon Dioxide (22-30) mmol/L Anion Gap mmol/L BUN (7-17) mg/dL Creatinine (0.52-1.04) mg/dL Est GFR (CKD-EPI)AfAm (>60 ml/min/1.73 sqM) Est GFR (CKD-EPI)NonAf (>60 ml/min/1.73 sqM) Glucose (74-99) mg/dL Calcium (8.4-10.2) mg/dL Total Bilirubin (0.2-1.3) mg/dL AST (14-36) U/L ALT (4-34) U/L Alkaline Phosphatase (38-126) U/L Troponin I <0.012 (0.000-0.034) ng/mL NT-Pro-B Natriuret Pep 157 pg/mL Total Protein (6.3-8.2) g/dL Albumin (3.5-5.0) g/dL Coronavirus (PCR) Not Detected (Not Detectd) Disposition <Liam Garsia - Last Filed: 02/09/21 12:52> Is patient prescribed a controlled substance at d/c from ED?: No Time of Disposition: 13:05 <Christos Urias - Last Filed: 02/09/21 13:05> Clinical Impression: Hyponatremia, Exertional dyspnea Disposition: ADMITTED IP TO THIS HOSP Referrals: Opal Mcghee MD [Primary Care Provider] - 1-2 days
[2021-02-09 11:22] LABS: Basophils % (A) 0 %; Eosinophils # (A) 0.1 k/uL (0-0.7); Eosinophils % (A) 3 %; HGB 12.5 gm/dL (11.4-16.0); Lymphocytes % (A) 18 %; MCH 35.1 pg (25.0-35.0); MCHC 35.8 g/dL (31.0-37.0); MCV 97.9 fL (80.0-100.0); Mean Platelet Volume 7.2; Monocytes # (A) 0.3 k/uL (0-1.0); Monocytes % (A) 6 %; Neutrophils # (A) 3.7 k/uL (1.3-7.7); Neutrophils % (A) 71 %; Platelet Count 187 k/uL (150-450); RBC 3.58 m/uL (3.80-5.40); RDW 13.6 % (11.5-15.5); WBC 5.3 k/uL (3.8-10.6)
[2021-02-09 11:38] LABS: ALT 23 U/L (4-34); AST 32 U/L (14-36); African American GFR (CKD) >90 (>60 ml/min/1.73 sqM); Albumin 3.6 g/dL (3.5-5.0); Alkaline Phosphatase 76 U/L (38-126); Anion Gap 8 mmol/L; Blood Urea Nitrogen 9 mg/dL (7-17); Calcium 8.9 mg/dL (8.4-10.2); Carbon Dioxide 22 mmol/L (22-30); Chloride 93 mmol/L (98-107); Glucose 86 mg/dL (74-99); Non-African American GFR(CKD) 83 (>60 ml/min/1.73 sqM); Potassium 4.3 mmol/L (3.5-5.1); Sodium 123 mmol/L (137-145); Total Bilirubin 0.5 mg/dL (0.2-1.3); Total Protein 5.9 g/dL (6.3-8.2)
[2021-02-09 11:56] LABS: D-Dimer 0.38 mg/L FEU (<0.60); INR 0.9 (<1.2); Prothrombin Time 9.4 sec (9.0-12.0)
[2021-02-09 12:05] LABS: Partial Thromboplastin Time 20.5 sec (22.0-30.0)
--- NOTE | 2021-02-09 12:29 | XR ---
EXAMINATION TYPE: XR chest 2V DATE OF EXAM: 02/09/2021 COMPARISON: Chest x-ray 09/17/2016 HISTORY: Difficulty breathing TECHNIQUE: Frontal and lateral views of the chest are obtained. FINDINGS: There is no focal air space opacity, pleural effusion, or pneumothorax seen. The cardiac silhouette size is within normal limits. There are overlying leads, patient is rotated. The aorta is dense. Postop changes again noted in the cervical spine. The osseous structures are intact, postop c hanges noted to the lumbar spine, there may be a spinal curvature, there are surgical clips in the ri t upper quadrant. IMPRESSION: No acute cardiopulmonary process.
[2021-02-09] MEDS ORDERED: NALOXONE 0.4 MG/ML 1 ML VIAL IV PRN (13:01)
[2021-02-09] MEDS: SODIUM CHLORIDE 0.9% 1,000 ML IV SCH (14:38)
[2021-02-09] MEDS ORDERED: DICYCLOMINE 20 MG TAB PO PRN (20:24)
[2021-02-09] MEDS ORDERED: SUMAtriptan succinate 25 MG TAB PO PRN (20:24)
[2021-02-09] MEDS ORDERED: MELOXICAM 7.5 MG TAB PO PRN (20:24)
[2021-02-09] MEDS ORDERED: diphenhydrAMINE 25 MG CAP PO PRN (20:36)
[2021-02-09] MEDS: ALPRAZolam 0.25 MG TAB PO PRN (21:00)
[2021-02-09] MEDS: ATORVASTATIN 20 MG TAB PO SCH (21:00)
[2021-02-09] MEDS: ALBUTEROL NEBULIZED 2.5 MG/3 ML INHALATION PRN (21:44)
[2021-02-10] MEDS: LEVOTHYROXINE 100 MCG TAB PO SCH (05:59)
[2021-02-10] MEDS: ALBUTEROL NEBULIZED 2.5 MG/3 ML INHALATION PRN ×2 (09:08→21:32)
[2021-02-10] MEDS: DULoxetine HCL 60 MG CAPSULE.DR PO SCH (09:46)
[2021-02-10] MEDS: MONTELUKAST 10 MG TAB PO SCH (09:46)
[2021-02-10] MEDS: amLODIPine 10 MG TAB PO SCH (09:46)
[2021-02-10] MEDS: PANTOPRAZOLE 40 MG TABLET PO SCH (09:46)
[2021-02-10] MEDS: CALCIUM CARB-VIT D 500 MG-5 MCG TAB PO SCH (09:46)
[2021-02-10] MEDS: CITALOPRAM HYDROBROMIDE 10 MG TAB PO SCH (09:46)
[2021-02-10] MEDS: SODIUM CHLORIDE 0.9% 1,000 ML IV SCH (09:47)
[2021-02-10 10:24] LABS: Basophils % (A) 1 %; Eosinophils # (A) 0.1 k/uL (0-0.7); Eosinophils % (A) 3 %; HCT 34.5 % (34.0-46.0); Lymphocytes % (A) 25 %; MCH 34.6 pg (25.0-35.0); MCHC 34.7 g/dL (31.0-37.0); MCV 99.9 fL (80.0-100.0); Monocytes # (A) 0.3 k/uL (0-1.0); Monocytes % (A) 7 %; Neutrophils # (A) 2.5 k/uL (1.3-7.7); Neutrophils % (A) 64 %; Platelet Count 218 k/uL (150-450); RBC 3.46 m/uL (3.80-5.40); RDW 13.8 % (11.5-15.5)
[2021-02-10 10:44] LABS: ALT 20 U/L (4-34); AST 28 U/L (14-36); African American GFR (CKD) >90 (>60 ml/min/1.73 sqM); Albumin 3.5 g/dL (3.5-5.0); Albumin/Globulin Ratio 1.7; Alkaline Phosphatase 76 U/L (38-126); Anion Gap 7 mmol/L; Blood Urea Nitrogen 9 mg/dL (7-17); Calcium 8.8 mg/dL (8.4-10.2); Carbon Dioxide 25 mmol/L (22-30); Chloride 101 mmol/L (98-107); Globulin 2.1 g/dL; Glucose 105 mg/dL (74-99); Non-African American GFR(CKD) 89 (>60 ml/min/1.73 sqM); Potassium 4.1 mmol/L (3.5-5.1); Sodium 133 mmol/L (137-145); Total Bilirubin 0.4 mg/dL (0.2-1.3); Total Protein 5.6 g/dL (6.3-8.2)
--- NOTE | 2021-02-10 12:52 | P.HPIM ---
History of Present Illness H&P Date: 02/09/21 Bharati Pan, is a 70-year-old female patient of Dr. Mcghee who presented to [facility] with a chief complaint of worsening shortness of breath. She was evaluated in the emergency room vital examination on presentation reveals a temperature of 98.1 pulse 104 respiration 22 blood p ressure 160/79 pulse ox 97% on room air laboratory data revealed a white blood count of 5.3 hemoglobin 12.5 platelet count 187 d-dimer was 0.38 sodium was low at 123 potassium 4.3 chloride 93 CO2 22 BUN 9 creatinine 0.73 liver enzymes within normal limits troponin less than 0.012 BNP was 157 Coronavirus PCR was negative. Chest x-ray was done in the emergency room and did not reveal any evidence of acute cardiopulmonary process EKG was done in the emergency room and revealed normal sinus rhythm normal EKG patient was started on IV normal saline and was admitted to medical floor for further evaluation and treatment of her hyponatremia Review of Systems please refer to HPI otherwise unremarkable Past Medical History Past Medical History: Asthma, Cancer, Fibromyalgia, GERD/Reflux, Osteoarthritis (OA), Thyroid Disorder Additional Past Medical History / Comment(s): Migraines History of Any Multi-Drug Resistant Organisms: None Reported Past Surgical History: Adenoidectomy, Bowel Resection, Cholecystectomy, Hernia Repair, Orthopedic Surgery, Tonsillectomy Past Psychological History: Anxiety, Depression, PTSD Smoking Status: Former smoker Past Alcohol Use History: Occasional Past Drug Use History: None Reported Medications and Allergies Home Medications Medication Instructions Recorded Confirmed Type ALPRAZolam [Xanax] 0.25 mg PO Q8H PRN 09/17/16 02/09/21 History DULoxetine HCL [Cymbalta] 60 mg PO DAILY 09/17/16 02/09/21 History Dicyclomine [Bentyl] 20 mg PO QID PRN 09/17/16 02/09/21 History Esomeprazole Magnesium [NexIUM 22.3 mg PO DAILY 09/17/16 02/09/21 History 24Hr] Levothyroxine Sodium [Synthroid] 100 mcg PO DAILY 09/17/16 02/09/21 History SUMAtriptan SUCCINATE [Imitrex] 25 mg PO DAILY PRN 09/17/16 02/09/21 History Citalopram Hydrobromide [CeleXA] 10 mg PO DAILY 01/05/18 02/09/21 History Acetaminophen/Chlorpheniramine 1 tab PO Q4H PRN 02/09/21 02/09/21 History [Coricidin Hbp Cold & Flu Tab] Acetaminophen/Diphenhydramine 2 tab PO HS PRN 02/09/21 02/09/21 History [Tylenol PM 500-25mg] Albuterol Nebulized [Ventolin 2.5 mg INHALATION RT-Q4H PRN 02/09/21 02/09/21 History Nebulized] Atorvastatin [Lipitor] 20 mg PO HS 02/09/21 02/09/21 History Calcium/D3/Zinc/Copper/Salma 1 tab PO DAILY 02/09/21 02/09/21 History [Citracal-D3 Maximum Plus Caplt] Meloxicam [Mobic] 15 mg PO DAILY PRN 02/09/21 02/09/21 History Montelukast [Singulair] 10 mg PO DAILY 02/09/21 02/09/21 History amLODIPine [Norvasc] 10 mg PO DAILY 02/09/21 02/09/21 History methocarbamoL [Methocarbamol] 500 mg PO QID PRN 02/09/21 02/09/21 History Allergies Allergy/AdvReac Type Severity Reaction Status Date / Time adhesive tape Allergy Severe Rash/Hives Verified 02/09/21 11:33 Physical Exam Vitals: Vital Signs Temp Pulse Resp BP Pulse Ox 02/09/21 16:00 109 H 20 116/80 96 02/09/21 15:00 98 20 142/74 98 02/09/21 14:00 99 20 160/79 97 02/09/21 13:00 98.1 F 104 H 22 160/79 97 02/09/21 12:00 98 18 127/73 97 02/09/21 11:31 88 18 127/73 98 02/09/21 11:00 18 02/09/21 09:52 97.3 F L 98 18 119/75 99 Intake and Output 02/09/21 02/09/21 02/09/21 06:59 14:59 22:59 Intake Total 100 Balance 100 Intake: Intake, IV Titration 100 Amount Sodium Chloride 0.9% 1, 100 000 ml @ 50 mls/hr IV . Q20H [facility] Rx#:[id number] Other: Weight 60.328 kg In general patient is alert and oriented ?-3 in no distress HEENT head normocephalic and atraumatic Neck is supple no JVD no goiter no lymphadenopathy no carotid bruit Chest examination is clear to auscultation no crackles no wheezing Cardiac exam reveals regular heart sounds S1 and S2 no gallops no murmurs Abdomen is soft nontender no organomegaly with normal bowel sounds Extremity exam reveals no edema no cyanosis or clubbing Neurological examination reveals no gross focal deficits Results CBC & Chem 7: 02/10/21 10:02 02/10/21 10:02 Labs: Abnormal Lab Results - Last 24 Hours (Table) 02/09/21 02/09/21 02/09/21 Range/Units 10:53 10:53 10:53 RBC 3.58 L (3.80-5.40) m/uL MCH 35.1 H (25.0-35.0) pg APTT 20.5 L (22.0-30.0) sec Sodium 123 L (137-145) mmol/L Chloride 93 L (98-107) mmol/L Total Protein 5.9 L (6.3-8.2) g/dL Thrombosis Risk Factor Assmnt - Choose All That Apply Any of the Below Risk Factors Present?: No Other Risk Factors: Yes Each Risk Factor Represents 2 Points: Age 61-74 years Each Risk Factor Represents 3 Points: Age 75 years or older Other congenital or acquired thrombophilia - If yes, enter type in comment: No Thrombosis Risk Factor Assessment Total Risk Factor Score: 5 Thrombosis Risk Factor Assessment Level: High Risk Assessment and Plan Assessment: 1. Hyponatremia sodium low at 123. Patient started on normal saline. 2. Shortness of breath. Patient reports she possibly had COVID-19 approximately 1 year ago did receive matter not to dose vaccine. Patient re ports she's had shortness of breath increased since second dose of vaccine. Chest x-ray was completed showing no acute cardiopulmonary process. D-dimer negative. Pulmonary service is consulted 3. History of asthma 4. History of fibromyalgia 5. History of GERD 6. History of osteoarthritis 7. Hypothyroidism 8. History of anxiety and depression DVT prophylaxis Lovenox. GI prophylaxis Protonix Continue normal saline at 50 Pulmonary service is consulted Time with Patient: Greater than 30 (Greater than 60% of the total time spent in counseling and coordination of care)
--- NOTE | 2021-02-10 12:54 | P.PN ---
Subjective Progress Note Date: 02/10/21 Bharati Pan, is a 70-year-old female patient of Dr. Mcghee who presented to [facility] with a chief complaint of worsening shortness of breath. She was evaluated in the emergency room vital examination on presentation reveals a temperature of 98.1 pulse 104 respiration 22 blood pressure 160/79 pulse ox 97% on room air laboratory data revealed a white blood count of 5.3 hemoglobin 12.5 platelet count 187 d-dimer was 0.38 sodium was low at 123 potassium 4.3 chloride 93 CO2 22 BUN 9 creatinine 0.73 liver enzymes within normal limits troponin less than 0.012 BNP was 157 Coronavirus PCR was negative. Chest x-ray was done in the emergency room and did not reveal any evidence of acute cardiopulmonary process EKG was done in the emergency room and revealed normal sinus rhythm normal EKG patient was started on IV normal saline and was admitted to medical floor for further evaluation and treatment of her hyponatremia On 02/10/2021 patient alert and oriented 3. Sodium improving to 133. Patient reports she still having some shortness of breath. Pulmonary services have been consulted. D-dimer was negative. Chest x-ray negative. Troponin negative. This time patient denies chest pain. Patient denies nausea vomiting or diarrhea. Patient denies any urinary burning or frequency Objective - Vital Signs Vital signs: Vital Signs Temp 97.9 F 02/10/21 07:31 Pulse 92 02/10/21 09:19 Resp 16 02/10/21 07:31 BP 120/78 02/10/21 07:31 Pulse Ox 97 02/10/21 07:31 Intake & Output 02/09/21 02/10/21 02/10/21 18:59 06:59 18:59 Intake Total 100 Balance 100 Weight 60.328 kg Intake: Intake, IV Titration 100 Amount Sodium Chloride 0.9% 1, 100 000 ml @ 50 mls/hr IV . Q20H [facility] Rx#:[id number] Other: Voiding Method Toilet # Voids 1 - Exam Head normocephalic Neck supple Lungs clear to auscultation bilaterally no wheezing or crackles Heart regular rate and rhythm S1-S2, no rub or gallop Abdomen is soft nontender nondistended positive bowel sounds no hepatosplenomegaly Extremities no edema Neuro alert and orientated to 3 - Labs CBC & Chem 7: 02/10/21 10:02 02/10/21 10:02 Labs: Abnormal Lab Results - Last 24 Hours (Table) 02/10/21 02/10/21 Range/Units 10:02 10:02 RBC 3.46 L (3.80-5.40) m/uL Sodium 133 L (137-145) mmol/L Glucose 105 H (74-99) mg/dL Total Protein 5.6 L (6.3-8.2) g/dL Assessment and Plan Assessment: 1. Hyponatremia sodium low at 123. Patient started on normal saline. Sodium improving 133 2. Shortness of breath. Patient reports she possibly had COVID-19 approximately 1 year ago did receive matter not to dose vaccine. Patient reports she's had shortness of breath increased since second dose of vaccine. Chest x-ray was completed showing no acute cardiopulmonary process. D-dimer negative. Pulmonary service is consulted 3. History of asthma 4. History of fibromyalgia 5. History of GERD 6. History of osteoarthritis 7. Hypothyroidism 8. History of anxiety and depression DVT prophylaxis Lovenox. GI prophylaxis Protonix Continue normal saline at 50 Pulmonary service is consulted
--- NOTE | 2021-02-10 17:27 | ECHOF ---
Referral Reason:Shortness of breath MEASUREMENTS -------- HEIGHT: 154.9 cm WEIGHT: 60.3 kg BP: 122/78 IVSd: 1.2 cm (0.6 - 1.1) LVIDd: 3.5 cm (3.9 - 5.3) LVPWd: 0.9 cm (0.6 - 1.1) IVSs: 1.3 cm LVIDs: 2.5 cm LVPWs: 1.2 cm LAESV Index (A-L): 38.62 ml/m Ao Diam: 1.6 cm (2.0 - 3.7) AV Cusp: 1.1 cm (1.5 - 2.6) MV E Williams: 0.57 m/s MV DecT: 179 ms MV A Williams: 1.11 m/s MV E/A Ratio: 0.51 RAP: 5.00 mmHg RVSP: 19.35 mmHg FINDINGS -------- Resting tachycardia (HR>100bpm). This was a technically adequate study. The left ventricular size is normal. There is mild concentric left ventricular hypertrophy. Overa ll left ventricular systolic function is normal with, an EF between 55 - 60 %. The RV was not well visualized. LA is moderately dilated 34-39 ml/m2 The right atrium was not well visualized. Interatrial and interventricular septum intact. The aortic valve is trileaflet and appears structurally normal. There is no evidence of aortic regu rgitation. There is no evidence of aortic stenosis. Mild mitral regurgitation is present. Mild tricuspid regurgitation present. There is no evidence of pulmonary hypertension. The right v entricular systolic pressure, as measured by Doppler, is 19.35mmHg. There is no pulmonic regurgitation present. The aortic root size is normal. IVC Not well visulized. There is no pericardial effusion. CONCLUSIONS -------- 1. The left ventricular size is normal. 2. There is mild concentric left ventricular hypertrophy. 3. Overall left ventricular systolic function is normal with, an EF between 55 - 60 %. 4. LA is moderately dilated 34-39 ml/m2 5. Mild mitral regurgitation is present. 6. Mild tricuspid regurgitation present. GEOSCIENCE LABORATORY TECHNICIAN: Alexandria Jalloh [facility]
[2021-02-10] MEDS: ALPRAZolam 0.25 MG TAB PO PRN (21:44)
[2021-02-10] MEDS: ATORVASTATIN 20 MG TAB PO SCH (21:44)
[2021-02-10] MEDS: ACETAMINOPHEN TAB 500 MG TAB PO PRN ×2 (21:47→21:49)
[2021-02-11] MEDS: SODIUM CHLORIDE 0.9% 1,000 ML IV SCH ×2 (02:36→20:29)
[2021-02-11] MEDS: ACETAMINOPHEN TAB 500 MG TAB PO PRN ×2 (03:09→22:17)
[2021-02-11] MEDS: LEVOTHYROXINE 100 MCG TAB PO SCH (05:39)
[2021-02-11 07:05] LABS: ABG Base Excess 0.2 mmol/L; ABG HCO3 25 mmol/L (21-25); ABG Oxygen Saturation 93.7 % (94-97); ABG PCO2 41 mmHg (35-45); ABG PO2 71 mmHg (83-108); ABG TCO2 26 mmol/L (19-24); Allen Test Performed? Yes
[2021-02-11 07:08] LABS: ALT 18 U/L (4-34); AST 23 U/L (14-36); African American GFR (CKD) >90 (>60 ml/min/1.73 sqM); Albumin 3.3 g/dL (3.5-5.0); Albumin/Globulin Ratio 1.5; Alkaline Phosphatase 66 U/L (38-126); Anion Gap 6 mmol/L; Blood Urea Nitrogen 6 mg/dL (7-17); Calcium 8.4 mg/dL (8.4-10.2); Carbon Dioxide 24 mmol/L (22-30); Chloride 102 mmol/L (98-107); Globulin 2.2 g/dL; Glucose 103 mg/dL (74-99); Non-African American GFR(CKD) >90 (>60 ml/min/1.73 sqM); Sodium 132 mmol/L (137-145); Total Bilirubin 0.3 mg/dL (0.2-1.3); Total Protein 5.5 g/dL (6.3-8.2)
[2021-02-11] MEDS: ALBUTEROL NEBULIZED 2.5 MG/3 ML INHALATION PRN ×2 (07:18→20:31)
[2021-02-11 07:32] LABS: Potassium 3.8 mmol/L (3.5-5.1)
[2021-02-11] MEDS: PANTOPRAZOLE 40 MG TABLET PO SCH (07:54)
[2021-02-11] MEDS: CITALOPRAM HYDROBROMIDE 10 MG TAB PO SCH (07:54)
[2021-02-11] MEDS: MONTELUKAST 10 MG TAB PO SCH (07:54)
[2021-02-11] MEDS: ENOXAPARIN 40 MG/0.4 ML SYRINGE SQ SCH (07:54)
[2021-02-11] MEDS: DULoxetine HCL 60 MG CAPSULE.DR PO SCH (07:54)
[2021-02-11] MEDS: CALCIUM CARB-VIT D 500 MG-5 MCG TAB PO SCH (07:54)
[2021-02-11] MEDS: amLODIPine 10 MG TAB PO SCH (07:54)
[2021-02-11] MEDS: ALPRAZolam 0.25 MG TAB PO PRN ×2 (08:49→22:08)
--- NOTE | 2021-02-11 11:48 | P.CNPUL ---
History of Present Illness Consult date: 02/11/21 Requesting physician: Justen Kunz Reason for consult: dyspnea Chief complaint: Shortness of breath History of present illness: This is a very pleasant 70-year-old female patient with a known history of migraines, hypothyroidism, depression, hyperlipidemia, mild intermittent chronic bronchial asthma, anxiety. She is a nonsmoker. She presented to the emergency room on 02/09/2021 with complaints of shortness of breath over the past couple of months. It had worsened in the 3 days prior to her arrival. She has received 2 carotid virus vaccines. She states she has been having increased dys pnea on minimal exertion. She had been treated with azithromycin as well as Bactrim in the outpatient setting without much improvement. She was also on steroids. She has albuterol rescue inhaler. Chest x-ray reveals no acute pulmonary process. She is seen today in consultation on the regular medical floor. She is resting comfortably in bed. Awake and alert in no acute distress. O2 saturation 95% on room air. She's been afebrile. Hemodynamically stable. Arterial blood gases revealed a pO2 of 71, pCO2 41, pH 7.40 room air. White count 4.0. Hemoglobin 12.0. Platelets 218. Sodium 132. Potassium 3.8. Creatinine 0.53. C. difficile screen negative. Victoria virus screen negative. Echocardiogram reveals preserved left ventricular systolic function with ejection fraction 55-60%. No evidence of valvular heart disease. No evidence of pulmonary hypertension. Review of Systems REVIEW OF SYSTEMS: CONSTITUTIONAL: Denies any recent significant weight loss or weight gain. EYES: Denies change in vision. EARS, NOSE, MOUTH, THROAT: Denies headaches, denies sore throat. CARDIOVASCULAR: Denies chest pain, palpitations or syncopal episodes. RESPIRATORY: Positive for shortness of breath, dyspnea on exertion, no cough, congestion or hemoptysis. GASTROINTESTINAL: Denies change in appetite, denies abdominal pain GENITOURINARY: Denies hematuria, denies infections. MUSKULOSKELETAL: Denies pain, denies swelling. INTEGUMENTARY: Denies rash, denies eczema. NEUROLOGICAL: Denies recent memory loss, no recent seizure activity. PSYCHIATRIC: Denies anxiety, denies depression. HEMATOLOGIC/LYMPHATIC: Denies anemia, denies enlarged lymph nodes. Past Medical History Past Medical History: Asthma, Cancer, Fibromyalgia, GERD/Reflux, Osteoarthritis (OA), Thyroid Disorder Additional Past Medical History / Comment(s): Migraines History of Any Multi-Drug Resistant Organisms: None Reported Past Surgical History: Adenoidectomy, Bowel Resection, Cholecystectomy, Hernia Repair, Orthopedic Surgery, Tonsillectomy Past Psychological History: Anxiety, Depression, PTSD Smoking Status: Former smoker Past Alcohol Use History: Occasional Past Drug Use History: None Reported Medications and Allergies Home Medications Medication Instructions Recorded Confirmed Type ALPRAZolam [Xanax] 0.25 mg PO Q8H PRN 09/17/16 02/09/21 History DULoxetine HCL [Cymbalta] 60 mg PO DAILY 09/17/16 02/09/21 History Dicyclomine [Bentyl] 20 mg PO QID PRN 09/17/16 02/09/21 History Esomeprazole Magnesium [NexIUM 22.3 mg PO DAILY 09/17/16 02/09/21 History 24Hr] Levothyroxine Sodium [Synthroid] 100 mcg PO DAILY 09/17/16 02/09/21 History SUMAtriptan SUCCINATE [Imitrex] 25 mg PO DAILY PRN 09/17/16 02/09/21 History Citalopram Hydrobromide [CeleXA] 10 mg PO DAILY 01/05/18 02/09/21 History Acetaminophen/Chlorpheniramine 1 tab PO Q4H PRN 02/09/21 02/09/21 History [Coricidin Hbp Cold & Flu Tab] Acetaminophen/Diphenhydramine 2 tab PO HS PRN 02/09/21 02/09/21 History [Tylenol PM 500-25mg] Albuterol Nebulized [Ventolin 2.5 mg INHALATION RT-Q4H PRN 02/09/21 02/09/21 History Nebulized] Atorvastatin [Lipitor] 20 mg PO HS 02/09/21 02/09/21 History Calcium/D3/Zinc/Copper/Salma 1 tab PO DAILY 02/09/21 02/09/21 History [Citracal-D3 Maximum Plus Caplt] Meloxicam [Mobic] 15 mg PO DAILY PRN 02/09/21 02/09/21 History Montelukast [Singulair] 10 mg PO DAILY 02/09/21 02/09/21 History amLODIPine [Norvasc] 10 mg PO DAILY 02/09/21 02/09/21 History methocarbamoL [Methocarbamol] 500 mg PO QID PRN 02/09/21 02/09/21 History Allergies Allergy/AdvReac Type Severity Reaction Status Date / Time adhesive tape Allergy Severe Rash/Hives Verified 02/09/21 11:33 Physical Exam Vitals: Vital Signs Temp Pulse Pulse Pulse Resp BP Pulse Ox 02/11/21 08:00 97.7 F 100 16 145/72 95 02/11/21 07:40 90 02/11/21 07:30 82 02/11/21 01:09 97.9 F 106 H 16 121/75 98 02/10/21 21:43 90 02/10/21 21:32 90 02/10/21 20:02 98.3 F 98 13 144/78 96 02/10/21 14:12 97.9 F 103 H 16 131/80 98 02/10/21 14:06 96 Pulse Ox 02/11/21 08:00 02/11/21 07:40 02/11/21 07:30 02/11/21 01:09 02/10/21 21:43 02/10/21 21:32 02/10/21 20:02 02/10/21 14:12 02/10/21 14:06 97 Intake and Output 02/10/21 02/11/21 02/11/21 22:59 06:59 14:59 Other: Voiding Method Toilet Toilet # Voids 3 1 # Bowel Movements 1 GENERAL EXAM: Alert, pleasant 70-year-old female patient, on room air with saturation 95% comfortable in no apparent distress. HEAD: Normocephalic. EYES: Normal reaction of pupils, equal size. NOSE: Clear with pink turbinates. THROAT: No erythema or exudates. NECK: No masses, no JVD. CHEST: No chest wall deformity. LUNGS: Equal air entry with no crackles, wheeze, rhonchi or dullness. CVS: S1 and S2 normal with no audible murmur, regular rhythm. ABDOMEN: No hepatosplenomegaly, normal bowel sounds, no guarding or rigidity. SPINE: No scoliosis or deformity SKIN: No rashes CENTRAL NERVOUS SYSTEM: No focal deficits, tone is normal in all 4 extremities. EXTREMITIES: There is no peripheral edema. No clubbing, no cyanosis. Peripheral pulses are intact. Results - Laboratory Findings CBC and BMP: 02/10/21 10:02 02/11/21 06:27 ABG ABG pH 7.40 (7.35-7.45) 02/11/21 07:02 ABG pCO2 41 mmHg (35-45) 02/11/21 07:02 ABG pO2 71 mmHg (83-108) L 02/11/21 07:02 ABG O2 Saturation 93.7 % (94-97) L 02/11/21 07:02 PT/INR, D-dimer PT 9.4 sec (9.0-12.0) 02/09/21 10:53 INR 0.9 (<1.2) 02/09/21 10:53 D-Dimer 0.38 mg/L FEU (<0.60) 02/09/21 10:53 Abnormal lab findings: Abnormal Labs 02/09/21 02/09/21 02/09/21 10:53 10:53 10:53 RBC 3.58 L MCH 35.1 H APTT 20.5 L ABG pO2 ABG Total CO2 ABG O2 Saturation Sodium 123 L Chloride 93 L BUN Glucose Total Protein 5.9 L Albumin 02/10/21 02/10/21 02/11/21 10:02 10:02 06:27 RBC 3.46 L MCH APTT ABG pO2 ABG Total CO2 ABG O2 Saturation Sodium 133 L 132 L Chloride BUN 6 L Glucose 105 H 103 H Total Protein 5.6 L 5.5 L Albumin 3.3 L 02/11/21 07:02 RBC MCH APTT ABG pO2 71 L ABG Total CO2 26 H ABG O2 Saturation 93.7 L Sodium Chloride BUN Glucose Total Protein Albumin - Diagnostic Findings Chest x-ray: image reviewed (No acute pulmonary process) Assessment and Plan Assessment: 1 Dyspnea of unclear etiology. Chest x-ray reveals no acute pulmonary process. PFT within normal limits. 95% O2 saturation on room air 2 Hyponatremia of unclear etiology presenting at 123, currently 132 3 History of mild intermittent chronic bronchial asthma maintained on Singulair and albuterol in the outpatient setting 4 Hypothyroidism 5 Fibromyalgia 6 Gastroesophageal reflux disease 7 History of anxiety/depression/PTSD 8 Remote history of mild smoking back in her 20s Plan: The patient was seen and evaluated by Dr. Obrien Chest x-ray, pulmonary function test, ABGs and labs reviewed No significant pulmonary abnormalities noted Continue Singulair, albuterol as needed We'll obtain a CT angiogram to rule out any underlying mass or PE We will continue to follow and make further recommendations based on her clinical status I, the cosigning physician, performed a history & physical examination of the patient. Lungs sounds are clear. Maintaining good O2 saturations in the 90s on room air. I discussed the assessment and plan of care with my nurse practitioner, Sara Kelly. I attest to the above consultation as dictated by her. Time with Patient: Greater than 30
[2021-02-11 12:12] LABS: Basophils # (A) 0.03 X 10*3/uL (0.00-0.10); Basophils % (A) 0.8 %; Eosinophils # (A) 0.08 X 10*3/uL (0.04-0.35); Eosinophils % (A) 2.1 %; HCT 33.9 % (37.2-46.3); HGB 11.4 g/dL (12.0-15.0); Lymphocytes # (A) 1.58 X 10*3/uL (0.90-5.00); Lymphocytes % (A) 41.3 %; MCH 33.8 pg (27.0-32.0); MCHC 33.6 g/dL (32.0-37.0); MCV 100.6 fL (80.0-97.0); Mean Platelet Volume 9.2 fL (9.5-12.2); Monocytes # (A) 0.39 X 10*3/uL (0.20-1.00); Monocytes % (A) 10.2 %; Neutrophils # (A) 1.68 X 10*3/uL (1.80-7.70); Neutrophils % (A) 43.8 %; Platelet Count 232 X 10*3/uL (140-440); RBC 3.37 X 10*6/uL (4.10-5.20); RDW 14.3 % (11.5-14.5); WBC 3.83 X 10*3/uL (4.50-10.00)
--- NOTE | 2021-02-11 12:36 | CT ---
CT CHEST FOR PULMONARY EMBOLISM. EXAMINATION TYPE: CT angio chest DATE OF EXAM: 02/11/2021 INDICATION: Shortness of breath CT DLP: 254.8 mGycm, Automated exposure control for dose reduction was used. CONTRAST: Patient injected with 100 mL of Isovue 370. COMPARISON: None TECHNIQUE: CT of the chest is performed on a spiral scan at 2 mm thick sections. Study is performed with intravenous contrast timed for evaluation for pulmonary embolism. This will limit additional po rtions of the evaluation. 3-D MIP images reconstructed by the technologist are reviewed on the compu ter in the coronal and sagittal planes. FINDINGS: No persistent filling defects are evident to suggest an acute pulmonary embolism. No mediastinal or hilar adenopathy enlarged by CT criteria is evident. The ascending aorta diameter at the level of the main pulmonary artery is 3.4 cm. The main pulmonary artery diameter at the bifur cation is 2.2 cm. Small hiatal hernia may be present. Lung windows are clear. Limited CT section through the upper abdomen are unremarkable. IMPRESSIONS: 1. No acute pulmonary embolism.
--- NOTE | 2021-02-11 19:28 | P.PN ---
Subjective Progress Note Date: 02/11/21 Bharati Pan, is a 70-year-old female patient of Dr. Mcghee who presented to [facility] with a chief complaint of worsening shortness of breath. She was evaluated in the emergency room vital examination on presentation reveals a temperature of 98.1 pulse 104 respiration 22 blood pressure 160/79 pulse ox 97% on room air laboratory data revealed a white blood count of 5.3 hemoglobin 12.5 platelet count 187 d-dimer was 0.38 sodium was low at 123 potassium 4.3 chloride 93 CO2 22 BUN 9 creatinine 0.73 liver enzymes within normal limits troponin less than 0.012 BNP was 157 Coronavirus PCR was negative. Chest x-ray was done in the emergency room and did not reveal any evidence of acute cardiopulmonary process EKG was done in the emergency room and revealed normal sinus rhythm normal EKG patient was started on IV normal saline and was admitted to medical floor for further evaluation and treatment of her hyponatremia On 02/10/2021 patient alert and oriented 3. Sodium improving to 133. Patient reports she still having some shortness of breath. Pulmonary services have been consulted. D-dimer was negative. Chest x-ray negative. Troponin negative. This time patient denies chest pain. Patient denies nausea vomiting or diarrhea. Patient denies any urinary burning or frequency On 02/11/2021 Patient was seen and examined on the medical floor, she is alert and oriented x 3 in no distress, she is complaining of shortness of breath with activities otherwise she denies any complaints there is no fever or chills no headache or dizziness no chest pain no shortness of breath at rest no palpitation no cough no nausea or vomiting no abdominal pain no diarrhea no blood in the stools no burning with urination no frequency or urgency and no hematuria, there is no weakness or numbness in any of the extremities no change in vision speech or gait. Objective - Vital Signs Vital signs: Vital Signs Temp 98.2 F 02/11/21 14:00 Pulse 100 02/11/21 14:00 Resp 16 02/11/21 14:00 BP 134/81 02/11/21 14:00 Pulse Ox 98 02/11/21 14:00 Intake & Output 02/11/21 02/11/21 02/12/21 06:59 18:59 06:59 Other: Voiding Method Toilet Toilet # Voids 1 - Exam Head normocephalic Neck supple Lungs clear to auscultation bilaterally no wheezing or crackles Heart regular rate and rhythm S1-S2, no rub or gallop Abdomen is soft nontender nondistended positive bowel sounds no hepatosplenomegaly Extremities no edema Neuro alert and orientated to 3 - Labs CBC & Chem 7: 02/11/21 06:27 02/11/21 06:27 Labs: Abnormal Lab Results - Last 24 Hours (Table) 02/10/21 02/11/21 02/11/21 Range/Units 16:52 06:27 06:27 WBC 3.83 L (4.50-10.00) X 10*3/uL RBC 3.37 L (4.10-5.20) X 10*6/uL Hgb 11.4 L (12.0-15.0) g/dL Hct 33.9 L (37.2-46.3) % MCV 100.6 H (80.0-97.0) fL MCH 33.8 H (27.0-32.0) pg MPV 9.2 L (9.5-12.2) fL Immature Gran # 0.07 H (0.00-0.04) X 10*3/uL Neutrophils # 1.68 L (1.80-7.70) X 10*3/uL ABG pO2 (83-108) mmHg ABG Total CO2 (19-24) mmol/L ABG O2 Saturation (94-97) % Sodium 132 L (137-145) mmol/L BUN 6 L (7-17) mg/dL Glucose 103 H (74-99) mg/dL Total Protein 5.5 L (6.3-8.2) g/dL Albumin 3.3 L (3.5-5.0) g/dL Stool Lactoferrin POSITIVE A (NEGATIVE) 02/11/21 Range/Units 07:02 WBC (4.50-10.00) X 10*3/uL RBC (4.10-5.20) X 10*6/uL Hgb (12.0-15.0) g/dL Hct (37.2-46.3) % MCV (80.0-97.0) fL MCH (27.0-32.0) pg MPV (9.5-12.2) fL Immature Gran # (0.00-0.04) X 10*3/uL Neutrophils # (1.80-7.70) X 10*3/uL ABG pO2 71 L (83-108) mmHg ABG Total CO2 26 H (19-24) mmol/L ABG O2 Saturation 93.7 L (94-97) % Sodium (137-145) mmol/L BUN (7-17) mg/dL Glucose (74-99) mg/dL Total Protein (6.3-8.2) g/dL Albumin (3.5-5.0) g/dL Stool Lactoferrin (NEGATIVE) Microbiology - Last 24 Hours (Table) 02/10/21 16:52 Stool Culture - Preliminary Stool Assessment and Plan Assessment: 1. Hyponatremia sodium low at 123. Patient started on normal saline. Sodium improving 133 2. Shortness of breath. Patient reports she possibly had COVID-19 approximately 1 year ago did receive matter not to dose vaccine. Patient reports she's had shortness of breath increased since second dose of vaccine. Chest x-ray was completed showing no acute cardiopulmonary process. D-dimer negative. Pulmonary service is consulted 3. History of asthma 4. History of fibromyalgia 5. History of GERD 6. History of osteoarthritis 7. Hypothyroidism 8. History of anxiety and depression. 9. Diarrhea yesterday improved today C. diff was negative DVT prophylaxis Lovenox. GI prophylaxis Protonix Continue normal saline at 50 Pulmonary service is consulted Patient is improving all testing have been negative so far cause of shortness of breath is not clear and cause of hyponatremia on presentation is not clear Possible discharge to home tomorrow
[2021-02-11] MEDS: ATORVASTATIN 20 MG TAB PO SCH (22:08)
[2021-02-12] MEDS: LEVOTHYROXINE 100 MCG TAB PO SCH (04:56)
[2021-02-12] MEDS: MONTELUKAST 10 MG TAB PO SCH (07:49)
[2021-02-12] MEDS: PANTOPRAZOLE 40 MG TABLET PO SCH (07:49)
[2021-02-12] MEDS: ENOXAPARIN 40 MG/0.4 ML SYRINGE SQ SCH (07:49)
[2021-02-12] MEDS: amLODIPine 10 MG TAB PO SCH (07:49)
[2021-02-12] MEDS: DULoxetine HCL 60 MG CAPSULE.DR PO SCH (07:49)
[2021-02-12] MEDS: CITALOPRAM HYDROBROMIDE 10 MG TAB PO SCH (07:49)
[2021-02-12] MEDS: CALCIUM CARB-VIT D 500 MG-5 MCG TAB PO SCH (07:49)
[2021-02-12 09:46] VITALS: BP 112/71; RESP 18; TEMP 97.6
--- NOTE | 2021-02-12 11:15 | P.DS ---
Providers Date of admission: 02/09/21 12:51 Expected date of discharge: 02/12/21 Attending physician: Justen Kunz Consults: 02/10/21 12:24 Consult Physician Routine Consulting Provider: Jeremy Obrien Consult Reason/Comments: shortness of breath Do you want consulting provider notified?: Yes Primary care physician: Opal Mcghee [facility] Hospital Course: Discharge diagnosis 1. Hyponatremia sodium low at 123. Patient started on normal saline. Sodium improving 133 2. Shortness of breath. Patient reports she possibly had COVID-19 approximately 1 year ago did receive matter not to dose vaccine. Patient reports she's had shortness of breath increased since second dose of vaccine. Chest x-ray was completed showing no acute cardiopulmonary process. D-dimer negative. She was evaluated by pulmonary services, chest x-ray, pulmonary function tests and ABGs all reviewed CTA was negative for PE. cleared by pulmonary 3. History of asthma 4. History of fibromyalgia 5. History of GERD 6. History of osteoarthritis 7. Hypothyroidism 8. History of anxiety and depression. 9. Diarrhea yesterday improved today C. diff was negative hospital course Bharati Pan, is a 70-year-old female patient of Dr. Mcghee who presented to [facility] with a chief complaint of worsening shortness of breath. She was evaluated in the emergency room vital examination on presentation reveals a temperature of 98.1 pulse 104 respiration 22 blood pressure 160/79 pulse ox 97% on room air laboratory data revealed a white blood count of 5.3 hemoglobin 12.5 platelet count 187 d-dimer was 0.38 sodium was low at 123 potassium 4.3 chloride 93 CO2 22 BUN 9 creatinine 0.73 liver enzymes within normal limits troponin less than 0.012 BNP was 157 Coronavirus PCR was negative. Chest x-ray was done in the emergency room and did not reveal any evidence of acute cardiopulmonary process EKG was done in the emergency room and revealed normal sinus rhythm normal EKG patient was started on IV normal saline and was admitted to medical floor for further evaluation and treatment of her hyponatremia On 02/10/2021 patient alert and oriented 3. Sodium improving to 133. Patient reports she still having some shortness of breath. Pulmonary services have been consulted. D-dimer was negative. Chest x-ray negative. Troponin negative. This time patient denies chest pain. Patient denies nausea vomiting or diarrhea. Patient denies any urinary burning or frequency On 02/11/2021 Patient was seen and examined on the medical floor, she is alert and oriented x 3 in no distress, she is complaining of shortness of breath with activities otherwise she denies any complaints there is no fever or chills no headache or dizziness no chest pain no shortness of breath at rest no palpitation no cough no nausea or vomiting no abdominal pain no diarrhea no blood in the stools no burning with urination no frequency or urgency and no hematuria, there is no weakness or numbness in any of the extremities no change in vision speech or gait. On 02/12/2021 patient alert and oriented 3. Patient reports significant improvement with shortness of breath. Patient thoroughly worked up by pulmonary services. All testing negative. Patient will be discharged home and follow-up PCP for further management. Awaiting final sodium prior to discharge. At this time patient denies chest pain or shortness of breath. Patient denies nausea vomiting or diarrhea. Patient denies any urinary burning or frequency Patient Condition at Discharge: Stable Plan - Discharge Summary New Discharge Prescriptions: Continue ALPRAZolam [Xanax] 0.25 mg PO Q8H PRN PRN Reason: Anxiety Esomeprazole Magnesium [NexIUM 24Hr] 22.3 mg PO DAILY Dicyclomine [Bentyl] 20 mg PO QID PRN PRN Reason: CRAMPS DULoxetine HCL [Cymbalta] 60 mg PO DAILY SUMAtriptan SUCCINATE [Imitrex] 25 mg PO DAILY PRN PRN Reason: Migraine Headache Levothyroxine Sodium [Synthroid] 100 mcg PO DAILY Citalopram Hydrobromide [CeleXA] 10 mg PO DAILY methocarbamoL [Methocarbamol] 500 mg PO QID PRN PRN Reason: Spasms amLODIPine [Norvasc] 10 mg PO DAILY Calcium/D3/Zinc/Copper/Salma [Citracal-D3 Maximum Plus Caplt] 1 tab PO DAILY Acetaminophen/Diphenhydramine [Tylenol PM 500-25mg] 2 tab PO HS PRN PRN Reason: Pain Montelukast [Singulair] 10 mg PO DAILY Meloxicam [Mobic] 15 mg PO DAILY PRN PRN Reason: Pain Atorvastatin [Lipitor] 20 mg PO HS Albuterol Nebulized [Ventolin Nebulized] 2.5 mg INHALATION RT-Q4H PRN PRN Reason: Shortness Of Breath Acetaminophen/Chlorpheniramine [Coricidin Hbp Cold-Flu Tablet] 1 tab PO Q4H PRN PRN Reason: Cold Symptoms Discharge Medication List ALPRAZolam [Xanax] 0.25 mg PO Q8H PRN 09/17/16 [History] DULoxetine HCL [Cymbalta] 60 mg PO DAILY 09/17/16 [History] Dicyclomine [Bentyl] 20 mg PO QID PRN 09/17/16 [History] Esomeprazole Magnesium [NexIUM 24Hr] 22.3 mg PO DAILY 09/17/16 [History] Levothyroxine Sodium [Synthroid] 100 mcg PO DAILY 09/17/16 [History] SUMAtriptan SUCCINATE [Imitrex] 25 mg PO DAILY PRN 09/17/16 [History] Citalopram Hydrobromide [CeleXA] 10 mg PO DAILY 01/05/18 [History] Acetaminophen/Chlorpheniramine [Coricidin Hbp Cold-Flu Tablet] 1 tab PO Q4H PRN 02/09/21 [History] Acetaminophen/Diphenhydramine [Tylenol PM 500-25mg] 2 tab PO HS PRN 02/09/21 [History] Albuterol Nebulized [Ventolin Nebulized] 2.5 mg INHALATION RT-Q4H PRN 02/09/21 [History] Atorvastatin [Lipitor] 20 mg PO HS 02/09/21 [History] Calcium/D3/Zinc/Copper/Salma [Citracal-D3 Maximum Plus Caplt] 1 tab PO DAILY 02/09/21 [History] Meloxicam [Mobic] 15 mg PO DAILY PRN 02/09/21 [History] Montelukast [Singulair] 10 mg PO DAILY 02/09/21 [History] amLODIPine [Norvasc] 10 mg PO DAILY 02/09/21 [History] methocarbamoL [Methocarbamol] 500 mg PO QID PRN 02/09/21 [History] Follow up Appointment(s)/Referral(s): Opal Mcghee MD [Primary Care Provider] - 1-2 days Discharge Disposition: HOME SELF-CARE
--- NOTE | 2021-02-12 11:56 | P.PN ---
Subjective Progress Note Date: 02/12/21 Principal diagnosis: Dyspnea of unclear etiology This is a very pleasant 70-year-old female patient with a known history of migraines, hypothyroidism, depression, hyperlipidemia, mild intermittent chronic bronchial asthma, anxiety. She is a nonsmoker. She presented to the emergency room on 02/09/2021 with complaints of shortness of breath over the past couple of months. It had worsened in the 3 days prior to her arrival. She has received 2 carotid virus vaccines. She states she has been having increased dyspnea on minimal exertion. She had been treated with azithromycin as well as Bactrim in the outpatient setting without much improvement. She was also on steroids. She has albuterol rescue inhaler. Chest x-ray reveals no acute pulmonary process. She is seen today in consultation on the regular medical floor. She is resting comfortably in bed. Awake and alert in no acute distress. O2 saturation 95% on room air. She's been afebrile. Hemodynamically stable. Arterial blood gases revealed a pO2 of 71, pCO2 41, pH 7.40 room air. White count 4.0. Hemoglobin 12.0. Platelets 218. Sodium 132. Potassium 3.8. Creatinine 0.53. C. difficile screen negative. [place] virus screen negative. Echocardiogram reveals preserved left ventricular systolic function with ejection fraction 55-60%. No evidence of valvular heart disease. No evidence of pulmonary hypertension. The patient is seen today 02/12/2021 in follow-up on the regular medical floor. She is currently resting in bed. Awake and alert in no acute distress. No worsening shortness of breath, cough or congestion. No dyspnea on exertion. Maintaining O2 saturation in the 90s on room air. Afebrile. Hemodynamically stable. No new labs today. CT angiogram ruled out pulmonary embolism. No mediastinal or hilar adenopathy. Lung windows were clear. Objective - Vital Signs Vital signs: Vital Signs Temp 97.6 F 02/12/21 08:00 Pulse 98 02/12/21 08:00 Resp 18 02/12/21 08:00 BP 112/71 02/12/21 08:00 Pulse Ox 94 L 02/12/21 08:00 Intake & Output 02/11/21 02/12/21 02/12/21 18:59 06:59 18:59 Other: Voiding Method Toilet Toilet Toilet # Voids 1 - Exam GENERAL EXAM: Alert, active, pleasant 70-year-old female, on room air, comfortable in no apparent distress. HEAD: Normocephalic. EYES: Normal reaction of pupils, equal size. NOSE: Clear with pink turbinates. THROAT: No erythema or exudates. NECK: No masses, no JVD. CHEST: No chest wall deformity. LUNGS: Equal air entry with no crackles, wheeze, rhonchi or dullness. CVS: S1 and S2 normal with no audible murmur, regular rhythm. ABDOMEN: No hepatosplenomegaly, normal bowel sounds, no guarding or rigidity. SPINE: No scoliosis or deformity SKIN: No rashes CENTRAL NERVOUS SYSTEM: No focal deficits, tone is normal in all 4 extremities. EXTREMITIES: There is no peripheral edema. No clubbing, no cyanosis. Peripheral pulses are intact. - Labs CBC & Chem 7: 02/11/21 06:27 02/11/21 06:27 Labs: Abnormal Lab Results - Last 24 Hours (Table) 02/10/21 02/11/21 Range/Units 16:52 06:27 WBC 3.83 L (4.50-10.00) X 10*3/uL RBC 3.37 L (4.10-5.20) X 10*6/uL Hgb 11.4 L (12.0-15.0) g/dL Hct 33.9 L (37.2-46.3) % MCV 100.6 H (80.0-97.0) fL MCH 33.8 H (27.0-32.0) pg MPV 9.2 L (9.5-12.2) fL Immature Gran # 0.07 H (0.00-0.04) X 10*3/uL Neutrophils # 1.68 L (1.80-7.70) X 10*3/uL Stool Lactoferrin POSITIVE A (NEGATIVE) Assessment and Plan Assessment: 1 Dyspnea of unclear etiology. Chest x-ray reveals no acute pulmonary process. PFT within normal limits. 95% O2 saturation on room air and CT angiogram ruled out pulmonary embolism. Lung windows clear. No mediastinal adenopathy. 2 Hyponatremia of unclear etiology presenting at 123, currently 132 3 History of mild intermittent chronic bronchial asthma maintained on Singulair and albuterol in the outpatient setting 4 Hypothyroidism 5 Fibromyalgia 6 Gastroesophageal reflux disease 7 History of anxiety/depression/PTSD 8 Remote history of mild smoking back in her 20s Plan: The patient was seen and evaluated by Dr. Micah Caballero and on room air CT angiogram revealed no PE, no other abnormalities Cleared for discharge from the pulmonary standpoint I, the cosigning physician, performed a history & physical examination of the patient. Lungs sounds are clear. Maintaining good O2 saturations in the 90s on room air. I discussed the assessment and plan of care with my nurse practitioner, Sara Kelly. I attest to the above note as dictated by her.
[2021-02-12 12:04] LABS: African American GFR (CKD) 105.5 (60.0-200.0); Albumin 3.7 g/dL (3.80-4.90); Albumin/Globulin Ratio 2.18 (1.60-3.17); Anion Gap 5.3 mmol/L (4.00-12.00); BUN/Creat Ratio 13.33 Ratio (12.00-20.00); Calcium 8.9 mg/dL (8.7-10.3); Carbon Dioxide 26.7 mmol/L (21.6-31.8); Globulin 1.7 g/dL (1.6-3.3); Non-African American GFR(CKD) 91.1 (60.0-200.0); Potassium 3.5 mmol/L (3.5-5.5); Total Bilirubin 0.3 mg/dL (0.3-1.2); Total Protein 5.4 g/dL (6.2-8.2)
[2021-02-12 12:12] LABS: Basophils # (A) 0.03 X 10*3/uL (0.00-0.10); Basophils % (A) 0.9 %; Eosinophils # (A) 0.06 X 10*3/uL (0.04-0.35); Eosinophils % (A) 1.7 %; HCT 32.3 % (37.2-46.3); HGB 11.1 g/dL (12.0-15.0); Lymphocytes # (A) 1.65 X 10*3/uL (0.90-5.00); MCH 34.2 pg (27.0-32.0); MCHC 34.4 g/dL (32.0-37.0); MCV 99.4 fL (80.0-97.0); Mean Platelet Volume 8.8 fL (9.5-12.2); Monocytes # (A) 0.32 X 10*3/uL (0.20-1.00); Monocytes % (A) 9.3 %; Neutrophils # (A) 1.31 X 10*3/uL (1.80-7.70); Neutrophils % (A) 38.1 %; Platelet Count 247 X 10*3/uL (140-440); RBC 3.25 X 10*6/uL (4.10-5.20); WBC 3.44 X 10*3/uL (4.50-10.00)
[2021-02-12] MEDS: ALBUTEROL NEBULIZED 2.5 MG/3 ML INHALATION PRN (13:37)
[2021-02-12 13:40] VITALS: PULSE 96
== END 2021-02-12 14:11 | disposition home or self-care (01) | DRG 641 ==
LOC: EC 09:46 → 4SSUR 12:51
PROVIDERS: ADMIT Internal Medicine; ATTEND Internal Medicine
DX: E87.1 Hypo-osmolality and hyponatremia (principal); E03.9 Hypothyroidism, unspecified; E78.5 Hyperlipidemia, unspecified; Z86.16 Personal history of COVID-19; Z20.822 Contact with and (suspected) exposure to COVID-19; F32.9 Major depressive disorder, single episode, unspecified; F43.10 Post-traumatic stress disorder, unspecified; J45.20 Mild intermittent asthma, uncomplicated; K21.9 Gastro-esophageal reflux disease without esophagitis; M79.7 Fibromyalgia; Z79.1 Long term (current) use of non-steroidal anti-inflammatories (NSAID); Z79.890 Hormone replacement therapy; Z79.899 Other long term (current) drug therapy; Z87.891 Personal history of nicotine dependence; Z90.89 Acquired absence of other organs; Z90.49 Acquired absence of other specified parts of digestive tract; M19.90 Unspecified osteoarthritis, unspecified site
CPT/HCPCS: 36415; 36600; 71046; 71275; 80053; 82805; 83630; 83880; 84484; 85025; 85379; 85610; 85730; 87045; 87046; 87324; 87635; 93005; 93306; 94060; 94640; 96360; 99285

== ENCOUNTER 2021-03-03 12:39 | Inpatient (IN) | payer MEDICARE ==
[2021-03-03] MEDS ORDERED: SODIUM CHLORIDE 0.9% 1,000 ML IV ONE ×2 (13:31→16:26)
--- NOTE | 2021-03-03 13:39 | ED ---
General Adult HPI - General Chief complaint: Recheck/Abnormal Lab/Rx Stated complaint: abn labs Time Seen by Provider: 03/03/21 13:00 Source: patient, RN notes reviewed, old records reviewed Mode of arrival: ambulatory Limitations: no limitations - History of Present Illness Initial comments: This is a 70-year-old female presents emergency with a past medical history significant for hyponatremia. Patient states she had a repeat sodium done and it was 129 and she was feeling fatigued so she decided to come in because she didn't feel as though she has much energy as she normally does. Patient denies any headache patient denies numbness weakness. Patient denies any chest pain difficulty breathing or shortness of breath per patient as any fever chills but she does states she's had a chronic cough. Nursing notes indicate she states she was short of breath but she denies it to me.. Patient denies abdominal pain patient denies nausea vomiting or diarrhea. Patient denies any excessive drinking of water. Patient states she drinks 2 bottles a day and that it. Patient denies any drug use. - Related Data Home Medications Medication Instructions Recorded Confirmed ALPRAZolam [Xanax] 0.25 mg PO Q8H PRN 09/17/16 02/09/21 DULoxetine HCL [Cymbalta] 60 mg PO DAILY 09/17/16 02/09/21 Dicyclomine [Bentyl] 20 mg PO QID PRN 09/17/16 02/09/21 Esomeprazole Magnesium [NexIUM 22.3 mg PO DAILY 09/17/16 02/09/21 24Hr] Levothyroxine Sodium [Synthroid] 100 mcg PO DAILY 09/17/16 02/09/21 SUMAtriptan SUCCINATE [Imitrex] 25 mg PO DAILY PRN 09/17/16 02/09/21 Citalopram Hydrobromide [CeleXA] 10 mg PO DAILY 01/05/18 02/09/21 Acetaminophen/Chlorpheniramine 1 tab PO Q4H PRN 02/09/21 02/09/21 [Coricidin Hbp Cold-Flu Tablet] Acetaminophen/Diphenhydramine 2 tab PO HS PRN 02/09/21 02/09/21 [Tylenol PM 500-25mg] Albuterol Nebulized [Ventolin 2.5 mg INHALATION RT-Q4H PRN 02/09/21 02/09/21 Nebulized] Atorvastatin [Lipitor] 20 mg PO HS 02/09/21 02/09/21 Calcium/D3/Zinc/Copper/Salma 1 tab PO DAILY 02/09/21 02/09/21 [Citracal-D3 Maximum Plus Caplt] Meloxicam [Mobic] 15 mg PO DAILY PRN 02/09/21 02/09/21 Montelukast [Singulair] 10 mg PO DAILY 02/09/21 02/09/21 amLODIPine [Norvasc] 10 mg PO DAILY 02/09/21 02/09/21 methocarbamoL [Methocarbamol] 500 mg PO QID PRN 02/09/21 02/09/21 Allergies Allergy/AdvReac Type Severity Reaction Status Date / Time adhesive tape Allergy Severe Rash/Hives Verified 03/03/21 16:20 Review of Systems ROS Statement: Those systems with pertinent positive or pertinent negative responses have been documented in the HPI. ROS Other: All systems not noted in ROS Statement are negative. Past Medical History Past Medical History: Asthma, Cancer, Fibromyalgia, GERD/Reflux, Osteoarthritis (OA), Thyroid Disorder Additional Past Medical History / Comment(s): Migraines History of Any Multi-Drug Resistant Organisms: None Reported Past Surgical History: Adenoidectomy, Bowel Resection, Cholecystectomy, Hernia Repair, Orthopedic Surgery, Tonsillectomy Past Psychological History: Anxiety, Depression, PTSD Smoking Status: Former smoker Past Alcohol Use History: Occasional Past Drug Use History: None Reported General Exam - General Exam Comments Initial Comments: GENERAL: Patient is well-developed and well-nourished. Patient is nontoxic and well- hydrated and is in mild distress. ENT: Neck is soft and supple. No significant lymphadenopathy is noted. Oropharynx is clear. Moist mucous membranes. Neck has full range of motion without eliciting any pain. EYES: The sclera were anicteric and conjunctiva were pink and moist. Extraocular movements were intact and pupils were equal round and reactive to light. Eyelids were unremarkable. PULMONARY: Unlabored respirations. Good breath sounds bilaterally. No audible rales rhonchi or wheezing was noted. CARDIOVASCULAR: There is a regular rate and rhythm without any murmurs gallops or rubs. ABDOMEN: Soft and nontender with normal bowel sounds. SKIN: Skin is clear with no lesions or rashes and otherwise unremarkable. NEUROLOGIC: Patient is alert and oriented x3. Cranial nerves II through XII are grossly intact. Motor and sensory are also intact. Normal speech, volume and content. Symmetrical smile. MUSCULOSKELETAL: Normal extremities with adequate strength and full range of motion. LYMPHATICS: No significant lymphadenopathy is noted PSYCHIATRIC: Normal psychiatric evaluation. Limitations: no limitations Course Vital Signs 03/03/21 03/03/21 13:00 13:03 Temperature 98.3 F Pulse Rate 99 Respiratory 20 18 Rate Blood Pressure 126/71 O2 Sat by Pulse 99 Oximetry Medical Decision Making - Medical Decision Making EKG shows normal sinus rhythm at 91 bpm IN interval 152 QRS is 78 QT interval is 592 QTC is 728 per patient's EKG shows no ST segment elevation or depression. The prolonged QT seems to be an inaccurate computer read Patient's sodium was 125. I spoke with Dr. Kunz he wanted to admit the patient. Patient received a liter of normal saline in the emergency department. I wrote admitting orders. I consult nephrology. - Lab Data Result diagrams: 03/03/21 13:35 03/03/21 13:35 Lab Results 03/03/21 03/03/21 03/03/21 Range/Units 13:35 13:35 13:35 WBC 7.5 (3.8-10.6) k/uL RBC 3.56 L (3.80-5.40) m/uL Hgb 12.8 (11.4-16.0) gm/dL Hct 35.7 (34.0-46.0) % MCV 100.3 H (80.0-100.0) fL MCH 35.8 H (25.0-35.0) pg MCHC 35.7 (31.0-37.0) g/dL RDW 14.1 (11.5-15.5) % Plt Count 412 (150-450) k/uL MPV 6.6 Neutrophils % 67 % Lymphocytes % 22 % Monocytes % 7 % Eosinophils % 2 % Basophils % 1 % Neutrophils # 5.0 (1.3-7.7) k/uL Lymphocytes # 1.7 (1.0-4.8) k/uL Monocytes # 0.6 (0-1.0) k/uL Eosinophils # 0.1 (0-0.7) k/uL Basophils # 0.1 (0-0.2) k/uL Macrocytosis Slight Sodium 125 L (137-145) mmol/L Potassium 3.8 (3.5-5.1) mmol/L Chloride 91 L (98-107) mmol/L Carbon Dioxide 25 (22-30) mmol/L Anion Gap 9 mmol/L BUN 6 L (7-17) mg/dL Creatinine 0.64 (0.52-1.04) mg/dL Est GFR (CKD-EPI)AfAm >90 (>60 ml/min/1.73 sqM) Est GFR (CKD-EPI)NonAf 90 (>60 ml/min/1.73 sqM) Glucose 121 H (74-99) mg/dL Calcium 9.2 (8.4-10.2) mg/dL Magnesium 1.9 (1.6-2.3) mg/dL Total Bilirubin 0.5 (0.2-1.3) mg/dL AST 37 H (14-36) U/L ALT 24 (4-34) U/L Alkaline Phosphatase 92 (38-126) U/L Total Protein 6.7 (6.3-8.2) g/dL Albumin 4.5 (3.5-5.0) g/dL Urine Color Yellow Urine Appearance Clear (Clear) Urine pH 5.5 (5.0-8.0) Ur Specific [place] 1.012 (1.001-1.035) Urine Protein Negative (Negative) Urine Glucose (UA) Negative (Negative) Urine Ketones Negative (Negative) Urine Blood Negative (Negative) Urine Nitrite Negative (Negative) Urine Bilirubin Negative (Negative) Urine Urobilinogen <2.0 (<2.0) mg/dL Ur Leukocyte Esterase Large H (Negative) Urine RBC 1 (0-5) /hpf Urine WBC 40 H (0-5) /hpf Ur Squamous Epith Cells <1 (0-4) /hpf Hyaline Casts 3 H (0-2) /lpf Urine Mucus Rare H (None) /hpf Disposition Clinical Impression: Hyponatremia, Generalized weakness Disposition: ADMITTED IP TO THIS [facility] Referrals: Opal Mcghee MD [Primary Care Provider] - 1-2 days Time of Disposition: 16:26
[2021-03-03 13:51] LABS: Basophils # (A) 0.1 k/uL (0-0.2); Basophils % (A) 1 %; Eosinophils # (A) 0.1 k/uL (0-0.7); Eosinophils % (A) 2 %; HCT 35.7 % (34.0-46.0); HGB 12.8 gm/dL (11.4-16.0); Lymphocytes # (A) 1.7 k/uL (1.0-4.8); Lymphocytes % (A) 22 %; MCH 35.8 pg (25.0-35.0); MCHC 35.7 g/dL (31.0-37.0); MCV 100.3 fL (80.0-100.0); Macrocytosis Slight; Mean Platelet Volume 6.6; Monocytes # (A) 0.6 k/uL (0-1.0); Monocytes % (A) 7 %; Neutrophils % (A) 67 %; Platelet Count 412 k/uL (150-450); RBC 3.56 m/uL (3.80-5.40); RDW 14.1 % (11.5-15.5); WBC 7.5 k/uL (3.8-10.6)
[2021-03-03 14:07] LABS: Appearance,Urine Clear (Clear); Bilirubin,Urine Negative (Negative); Blood,Urine Negative (Negative); Color,Urine Yellow; Glucose,Urine (UA) Negative (Negative); Hyaline Casts,Urine 3 /lpf (0-2); Ketones,Urine Negative (Negative); Leukocyte Esterase,Urine Large (Negative); Mucus,Urine Rare /hpf; Nitrite,Urine Negative (Negative); PH, Urine 5.5 (5.0-8.0); Protein,Urine Negative (Negative); RBC,Urine 1 /hpf (0-5); Specific Gravity,Urine 1.012 (1.001-1.035); Squamous Epithelial Cell,Urine <1 /hpf (0-4); Urobilinogen,Urine <2.0 mg/dL (<2.0); WBC,Urine 40 /hpf (0-5)
[2021-03-03 14:31] LABS: ALT 24 U/L (4-34); AST 37 U/L (14-36); African American GFR (CKD) >90 (>60 ml/min/1.73 sqM); Albumin 4.5 g/dL (3.5-5.0); Alkaline Phosphatase 92 U/L (38-126); Anion Gap 9 mmol/L; Blood Urea Nitrogen 6 mg/dL (7-17); Calcium 9.2 mg/dL (8.4-10.2); Carbon Dioxide 25 mmol/L (22-30); Chloride 91 mmol/L (98-107); Glucose 121 mg/dL (74-99); Magnesium 1.9 mg/dL (1.6-2.3); Non-African American GFR(CKD) 90 (>60 ml/min/1.73 sqM); Potassium 3.8 mmol/L (3.5-5.1); Sodium 125 mmol/L (137-145); Total Bilirubin 0.5 mg/dL (0.2-1.3); Total Protein 6.7 g/dL (6.3-8.2)
[2021-03-03] MEDS ORDERED: [UNRECOGNIZED DRUG - OTHER] PO PRN (23:18)
[2021-03-03] MEDS: ALPRAZolam 0.25 MG TAB PO PRN (23:49)
[2021-03-04] MEDS ORDERED: guaiFENesin-DM 600/30MG 1 EACH TAB.ER.12H PO PRN
[2021-03-04] MEDS: PANTOPRAZOLE 40 MG TABLET PO SCH ×3 (00:10→20:35)
[2021-03-04] MEDS: ALBUTEROL NEBULIZED 2.5 MG/3 ML INHALATION PRN ×2 (02:09→12:56)
[2021-03-04] MEDS: ACETAMINOPHEN TAB 500 MG TAB PO SCH ×2 (02:14→20:35)
[2021-03-04] MEDS: diphenhydrAMINE 25 MG CAP PO SCH ×2 (02:14→20:36)
[2021-03-04] MEDS: DULoxetine HCL 60 MG CAPSULE.DR PO SCH ×2 (02:15→08:02)
[2021-03-04] MEDS: LEVOTHYROXINE 100 MCG TAB PO SCH (05:32)
[2021-03-04] MEDS: FLUTICASONE 50MCG/SPRAY NASAL 16GM EA NOSTRIL SCH (08:02)
[2021-03-04] MEDS: LORATADINE 10 MG TAB PO SCH (08:02)
[2021-03-04] MEDS: MONTELUKAST 10 MG TAB PO SCH (08:02)
[2021-03-04] MEDS: amLODIPine 10 MG TAB PO SCH (08:02)
[2021-03-04] MEDS: CYANOCOBALAMIN 500 MCG TAB PO SCH (08:02)
[2021-03-04] MEDS: CITALOPRAM HYDROBROMIDE 10 MG TAB PO SCH (08:02)
[2021-03-04] MEDS: FLUTICASONE 110 MCG INHALER INHALATION SCH ×2 (08:10→21:04)
[2021-03-04] MEDS: ALBUTEROL NEBULIZED 2.5 MG/3 ML INHALATION SCH ×2 (08:10→21:04)
--- NOTE | 2021-03-04 08:45 | P.NPCON ---
History of Present Illness - Reason for Consult hyponatremia - History of Present Illness Reason for consultation: Hyponatremia History of present illness: Patient is a 70-year-old female seen in consultation for hyponatremia. Patient states she had blood work done on Monday and her sodium level was 129. She states over the last few days she has a been feeling well and feels weaker than usual. She came to the hospital for evaluation. Her sodium level was 125 on admission. She did receive 1 L bolus of normal saline and maintenance fluids with normal saline which have not been discontinued. She is awake and alert. Denies chest pain or shortness of breath. Patient states since November she's been having vomiting on and off but not on a regular basis. No diarrhea. Good urine output. No hematuria or dysuria. No personal or family history of kidney disease. Denies using any diuretics. No history of malignancy. Blood pressure is stable. Does admit to a chronic cough which she attributes to hiatal hernia. Her oral intake has been fair. She does drink 2 large bottles of water daily a long with Gatorade since her oral intake hasn't been too good. Urine osmolality was noted to be low at 168. UA is otherwise benign. Vital signs are stable. General: The patient appeared well nourished and normally developed. HEENT: Head exam is unremarkable. Neck is without jugular venous distension. LUNGS: Lungs are clear to auscultation and percussion. Breath sounds decreased. HEART: Rate and Rhythm are regular. ABDOMEN: Soft, no distention. EXTREMITITES: No edema. Past Medical History Past Medical History: Asthma, Cancer, Fibromyalgia, GERD/Reflux, Osteoarthritis (OA), Thyroid Disorder Additional Past Medical History / Comment(s): Migraines History of Any Multi-Drug Resistant Organisms: None Reported Past Surgical History: Adenoidectomy, Bowel Resection, Cholecystectomy, Hernia Repair, Orthopedic Surgery, Tonsillectomy Additional Past Anesthesia/Blood Transfusion Reaction / Comment(s): never had a transfusion Past Psychological History: Anxiety, Depression, PTSD Additional Psychological History / Comment(s): on meds - xanax & celexa Smoking Status: Former smoker Past Alcohol Use History: Occasional Additional Past Alcohol Use History / Comment(s): drinks minimum of 2 drinks daily Past Drug Use History: None Reported - Past Family History Mother Family Medical History: Congestive Heart Failure (CHF) Father History Unknown: Yes Medications and Allergies Home Medications Medication Instructions Recorded Confirmed Type ALPRAZolam [Xanax] 0.25 mg PO Q8H PRN 09/17/16 03/03/21 History DULoxetine HCL [Cymbalta] 60 mg PO DAILY 09/17/16 03/03/21 History Dicyclomine [Bentyl] 20 mg PO QID PRN 09/17/16 03/03/21 History Levothyroxine Sodium [Synthroid] 100 mcg PO DAILY 09/17/16 03/03/21 History SUMAtriptan SUCCINATE [Imitrex] 25 mg PO DAILY PRN 09/17/16 03/03/21 History Citalopram Hydrobromide [CeleXA] 10 mg PO DAILY 01/05/18 03/03/21 History Acetaminophen/Diphenhydramine 2 tab PO HS 02/09/21 03/03/21 History [Tylenol PM 500-25mg] Albuterol Nebulized [Ventolin 2.5 mg INHALATION RT-BID 02/09/21 03/03/21 History Nebulized] Atorvastatin [Lipitor] 20 mg PO HS 02/09/21 03/03/21 History Calcium/D3/Zinc/Copper/Salma 2 tab PO DAILY 02/09/21 03/03/21 History [Citracal-D3 Maximum Plus Caplt] Meloxicam [Mobic] 15 mg PO DAILY PRN 02/09/21 03/03/21 History Montelukast [Singulair] 10 mg PO DAILY 02/09/21 03/03/21 History amLODIPine [Norvasc] 10 mg PO DAILY 02/09/21 03/03/21 History methocarbamoL [Methocarbamol] 500 mg PO QID PRN 02/09/21 03/03/21 History Chlorpheniramine/Dextromethorp 1 tab PO BID PRN 03/03/21 03/03/21 History [Coricidin Hbp Cough & Cold Tab] Cyanocobalamin (Vitamin B-12) 1,000 mcg PO DAILY 03/03/21 03/03/21 History [Vitamin B-12] Fluticasone Nasal [place] [Flonase 1 spray EA NOSTRIL DAILY 03/03/21 03/03/21 History Nasal [place]] Loratadine [Claritin] 10 mg PO DAILY 03/03/21 03/03/21 History Mometasone Furoate [Asmanex Hfa] 2 puff INHALATION RT-DAILY 03/03/21 03/03/21 History Omeprazole 20 mg PO BID 03/03/21 03/03/21 History Propylene Glycol/Peg 400/Pf 1 drop BOTH EYES TID PRN 03/03/21 03/03/21 History [Systane 0.3-0.4% Eye Drops] guaiFENesin-DM 600/30MG [Mucinex 1 tab PO BID PRN 03/03/21 03/03/21 History Dm] Allergies Allergy/AdvReac Type Severity Reaction Status Date / Time adhesive tape Allergy Severe Rash/Hives Verified 03/03/21 16:20 Physical Exam Vitals: Vital Signs Temp Pulse Pulse Resp BP BP Pulse Ox 03/04/21 08:20 87 03/04/21 08:13 84 03/04/21 08:00 97.9 F 93 17 129/77 96 03/04/21 03:38 98.5 F 102 H 18 118/72 94 L 03/04/21 02:18 97 03/04/21 02:09 97 03/03/21 21:09 97.8 F 91 16 138/77 95 03/03/21 20:07 98.0 F 93 18 142/70 98 03/03/21 13:03 18 03/03/21 13:00 98.3 F 99 20 126/71 99 Intake and Output 03/03/21 03/04/21 03/04/21 22:59 06:59 14:59 Intake Total 240 Balance 240 Intake: Oral 240 Other: Voiding Method Toilet Diaper # Voids 2 Weight 61.235 kg Results - Lab Results Most recent lab results Calcium 9.2 mg/dL (8.4-10.2) 03/03/21 13:35 Magnesium 1.9 mg/dL (1.6-2.3) 03/03/21 13:35 03/03/21 13:35 03/03/21 13:35 Assessment and Plan Plan: Assessment: 1. Hyponatremia from poor solute intake and excess fluid intake. Additionally she is on Mobic, Celexa as well as Cymbalta which can all induce SIADH. Sodium level 125 on admission. Urine osmolality low at 168. 2. Benign hypertension. Controlled. Plan: 1200 mL fluid restriction. Add sodium chloride tablets 1 g twice daily. Encourage oral intake, particularly protein. Check TSH. Urine sodium pending. Follow-up morning labs. Thank you for the consultation. I will continue to follow the patient with you during her hospital stay.
[2021-03-04] MEDS ORDERED: methocarbamoL 500 MG TAB PO PRN (09:00)
[2021-03-04] MEDS ORDERED: MELOXICAM 7.5 MG TAB PO PRN (09:00)
[2021-03-04] MEDS ORDERED: SUMAtriptan succinate 25 MG TAB PO PRN (09:00)
[2021-03-04] MEDS ORDERED: DICYCLOMINE 20 MG TAB PO PRN (09:00)
[2021-03-04] MEDS ORDERED: SODIUM CHLORIDE TAB 1 GM TAB PO SCH (09:00)
[2021-03-04] MEDS ORDERED: NON FORMULARY DRUG (Propylene Glycol/Peg 400/Pf [Systane 0.3-0.4% Eye Drop] 1 EACH Dropere BOTH EYES PRN (09:00)
[2021-03-04 09:44] LABS: African American GFR (CKD) 105.5 (60.0-200.0); Anion Gap 8.9 mmol/L (4.00-12.00); BUN/Creat Ratio 11.67 Ratio (12.00-20.00); Calcium 8.8 mg/dL (8.7-10.3); Carbon Dioxide 24.1 mmol/L (21.6-31.8); Magnesium 1.8 mg/dL (1.5-2.4); Non-African American GFR(CKD) 91.1 (60.0-200.0); Potassium 4.9 mmol/L (3.5-5.5)
--- NOTE | 2021-03-04 10:03 | P.HPIM ---
History of Present Illness H&P Date: 03/03/21 Bharati Pan is a 70-year-old female patient who presented to the ER with concerns of low sodium level per her PCP. Patient follows regularly with Dr. schwartz. Patient reports that she has close monitoring of her sodium level and had labs completed on Monday her sodium level was 129. Patient reports that over the past few days she has been having increased weakness and shortness of breath which of the symptoms she had with her previous episode of hyponatremia. Patient decided to come to ER for further evaluation. Upon arrival sodium is on the 125. Patient did receive 1 L bolus in ER. Patient denies any recent illness. During previous hospital patient patient was thoroughly worked up by pulmonary services for shortness of breath with no significant findings. Patient denies any recent acute illness. Patient does have a past medical history of asthma, fibromyalgia, GERD, arthritis, thyroid disorder, anxiety, depression and PTSD. At this time nephrology services will be consulted. UA also positive for urinary tract infection. Urine culture has been ordered. Patient will be started on Rocephin. At this time patient reports that she feels slightly improved. Patient denies any chest pain or shortness breath. Patient denies nausea vomiting or diarrhea. Patient denies any urinary burning or frequency. Review of Systems please refer to HPI otherwise unremarkable Past Medical History Past Medical History: Asthma, Cancer, Fibromyalgia, GERD/Reflux, Osteoarthritis (OA), Thyroid Disorder Additional Past Medical History / Comment(s): Migraines History of Any Multi-Drug Resistant Organisms: None Reported Past Surgical History: Adenoidectomy, Bowel Resection, Cholecystectomy, Hernia Repair, Orthopedic Surgery, Tonsillectomy Past Psychological History: Anxiety, Depression, PTSD Smoking Status: Former smoker Past Alcohol Use History: Occasional Past Drug Use History: None Reported - Past Family History Mother Family Medical History: Congestive Heart Failure (CHF) Father History Unknown: Yes Medications and Allergies Home Medications Medication Instructions Recorded Confirmed Type ALPRAZolam [Xanax] 0.25 mg PO Q8H PRN 09/17/16 03/03/21 History DULoxetine HCL [Cymbalta] 60 mg PO DAILY 09/17/16 03/03/21 History Dicyclomine [Bentyl] 20 mg PO QID PRN 09/17/16 03/03/21 History Levothyroxine Sodium [Synthroid] 100 mcg PO DAILY 09/17/16 03/03/21 History SUMAtriptan SUCCINATE [Imitrex] 25 mg PO DAILY PRN 09/17/16 03/03/21 History Citalopram Hydrobromide [CeleXA] 10 mg PO DAILY 01/05/18 03/03/21 History Acetaminophen/Diphenhydramine 2 tab PO HS 02/09/21 03/03/21 History [Tylenol PM 500-25mg] Albuterol Nebulized [Ventolin 2.5 mg INHALATION RT-BID 02/09/21 03/03/21 History Nebulized] Atorvastatin [Lipitor] 20 mg PO HS 02/09/21 03/03/21 History Calcium/D3/Zinc/Copper/Salma 2 tab PO DAILY 02/09/21 03/03/21 History [Citracal-D3 Maximum Plus Caplt] Meloxicam [Mobic] 15 mg PO DAILY PRN 02/09/21 03/03/21 History Montelukast [Singulair] 10 mg PO DAILY 02/09/21 03/03/21 History amLODIPine [Norvasc] 10 mg PO DAILY 02/09/21 03/03/21 History methocarbamoL [Methocarbamol] 500 mg PO QID PRN 02/09/21 03/03/21 History Chlorpheniramine/Dextromethorp 1 tab PO BID PRN 03/03/21 03/03/21 History [Coricidin Hbp Cough & Cold Tab] Cyanocobalamin (Vitamin B-12) 1,000 mcg PO DAILY 03/03/21 03/03/21 History [Vitamin B-12] Fluticasone Nasal [place] [Flonase 1 spray EA NOSTRIL DAILY 03/03/21 03/03/21 History Nasal [place]] Loratadine [Claritin] 10 mg PO DAILY 03/03/21 03/03/21 History Mometasone Furoate [Asmanex Hfa] 2 puff INHALATION RT-DAILY 03/03/21 03/03/21 History Omeprazole 20 mg PO BID 03/03/21 03/03/21 History Propylene Glycol/Peg 400/Pf 1 drop BOTH EYES TID PRN 03/03/21 03/03/21 History [Systane 0.3-0.4% Eye Drops] guaiFENesin-DM 600/30MG [Mucinex 1 tab PO BID PRN 03/03/21 03/03/21 History Dm] Allergies Allergy/AdvReac Type Severity Reaction Status Date / Time adhesive tape Allergy Severe Rash/Hives Verified 03/03/21 16:20 Physical Exam Vitals: Vital Signs Temp Pulse Resp BP Pulse Ox 03/03/21 13:03 18 03/03/21 13:00 98.3 F 99 20 126/71 99 Intake and Output 03/03/21 03/03/21 03/03/21 06:59 14:59 22:59 Other: Weight 61.235 kg Head normocephalic Neck supple Lungs clear to auscultation bilaterally no wheezing or crackles Heart regular rate and rhythm S1-S2, no rub or gallop Abdomen is soft nontender nondistended positive bowel sounds no hepatos plenomegaly Extremities no edema Neuro alert and orientated to 3 Results CBC & Chem 7: 03/03/21 13:35 03/04/21 06:17 Labs: Abnormal Lab Results - Last 24 Hours (Table) 03/03/21 03/03/21 03/03/21 Range/Units 13:35 13:35 13:35 RBC 3.56 L (3.80-5.40) m/uL MCV 100.3 H (80.0-100.0) fL MCH 35.8 H (25.0-35.0) pg Sodium 125 L (137-145) mmol/L Chloride 91 L (98-107) mmol/L BUN 6 L (7-17) mg/dL Glucose 121 H (74-99) mg/dL AST 37 H (14-36) U/L Ur Leukocyte Esterase Large H (Negative) Urine WBC 40 H (0-5) /hpf Hyaline Casts 3 H (0-2) /lpf Urine Mucus Rare H (None) /hpf Assessment and Plan Assessment: 1. Hyponatremia. Initial sodium level 125. Sodium level improved to 134. Nephrology services are following. Sodium chloride tab 1 g added twice daily. Fluid restrictions of 1200 mL urine sodium pending 2. Urinary tract infection. Patient started on Rocephin. Urine culture ordered 3. Intermittent episodes of shortness of breath. Patient was recently evaluated in patient with pulmonary services in which CTA,ABGs, and pulmonary function tests were all completed. Patient reports that there has been improvement with her shortness of breath since improvement with sodium leve 4. History of asthma no exacerbation at this time 5. History of fibromyalgia 6. History of GERD 7. History of osteoporosis or arthritis 8. Hypothyroidism 9. History of anxiety and depression DVT prophylaxis Lovenox. GI prophylaxis Protonix
--- NOTE | 2021-03-04 10:04 | P.PN ---
Subjective Progress Note Date: 03/04/21 Bharati Pan is a 70-year-old female patient who presented to the ER with concerns of low sodium level per her PCP. Patient follows regularly with Dr. schwartz. Patient reports that she has close monitoring of her sodium level and had labs completed on Monday her sodium level was 129. Patient reports that over the past few days she has been having increased weakness and shortness of breath which of the symptoms she had with her previous episode of hyponatremia. Patient decided to come to ER for further evaluation. Upon arrival sodium is on the 125. Patient did receive 1 L bolus in ER. Patient denies any recent illness. During previous hospital patient patient was thoroughly worked up by pulmonary services for shortness of breath with no significant findings. Patient denies any recent acute illness. Patient does have a past medical history of asthma, fibromyalgia, GERD, arthritis, thyroid disorder, anxiety, depression and PTSD. At this time nephrology services will be consulted. UA also positive for urinary tract infection. Urine culture has been ordered. Patient will be started on Rocephin. At this time patient reports that she feels slightly improved. Patient denies any chest pain or shortness breath. Patient denies nausea vomiting or diarrhea. Patient denies any urinary burning or frequency. On 03/04/2021 patient alert and oriented 3. Patient reports that she does feel improved and less weak. Repeat sodium level CXXXIV. Nephrology services are following. Sodium chloride tablet added. Fluid restriction 1200 miles. Repeat labs ordered for a.m. this time patient denies chest pain or shortness breath. Patient denies nausea vomiting or diarrhea. Patient denies any urinary burning or frequency Objective - Vital Signs Vital signs: Vital Signs Temp 97.9 F 03/04/21 08:00 Pulse 87 03/04/21 08:20 Resp 17 03/04/21 08:00 BP 129/77 03/04/21 08:00 Pulse Ox 96 03/04/21 08:00 Intake & Output 03/03/21 03/04/21 03/04/21 18:59 06:59 18:59 Intake Total 240 Balance 240 Weight 61.235 kg 61.235 kg Intake: Oral 240 Other: Voiding Method Toilet Toilet Diaper Diaper # Voids 2 - Exam Head normocephalic Neck supple Lungs clear to auscultation bilaterally no wheezing or crackles Heart regular rate and rhythm S1-S2, no rub or gallop Abdomen is soft nontender nondistended positive bowel sounds no hepatosplenomegaly Extremities no edema Neuro alert and orientated to 3 - Labs CBC & Chem 7: 03/03/21 13:35 03/04/21 06:17 Labs: Abnormal Lab Results - Last 24 Hours (Table) 03/03/21 03/03/21 03/03/21 Range/Units 13:35 13:35 13:35 RBC 3.56 L (3.80-5.40) m/uL MCV 100.3 H (80.0-100.0) fL MCH 35.8 H (25.0-35.0) pg Sodium 125 L (137-145) mmol/L Chloride 91 L (98-107) mmol/L BUN 6 L (7-17) mg/dL BUN/Creatinine Ratio (12.00-20.00) Ratio Glucose 121 H (74-99) mg/dL Osmolality (280-301) mosm/kg AST 37 H (14-36) U/L Ur Leukocyte Esterase Large H (Negative) Urine WBC 40 H (0-5) /hpf Hyaline Casts 3 H (0-2) /lpf Urine Mucus Rare H (None) /hpf 03/03/21 03/04/21 Range/Units 17:21 06:17 RBC (3.80-5.40) m/uL MCV (80.0-100.0) fL MCH (25.0-35.0) pg Sodium 134 L (137-145) mmol/L Chloride (98-107) mmol/L BUN 7.0 L (7-17) mg/dL BUN/Creatinine Ratio 11.67 L (12.00-20.00) Ratio Glucose 124 H (74-99) mg/dL Osmolality 262 L (280-301) mosm/kg AST (14-36) U/L Ur Leukocyte Esterase (Negative) Urine WBC (0-5) /hpf Hyaline Casts (0-2) /lpf Urine Mucus (None) /hpf Microbiology - Last 24 Hours (Table) 03/03/21 13:35 Urine Culture - Preliminary Urine,Clean Catch Assessment and Plan Assessment: 1. Hyponatremia. Initial sodium level 125. Sodium level improved to 134. Nephrology services are following. Sodium chloride tab 1 g added twice daily. Fluid restrictions of 1200 mL urine sodium pending 2. Urinary tract infection. Patient started on Rocephin. Urine culture ordered 3. Intermittent episodes of shortness of breath. Patient was recently evaluated in patient with pulmonary services in which CTA,ABGs, and pulmonary function tests were all completed. Patient reports that there has been improvement with her shortness of breath since improvement with sodium leve 4. History of asthma no exacerbation at this time 5. History of fibromyalgia 6. History of GERD 7. History of osteoporosis or arthritis 8. Hypothyroidism 9. History of anxiety and depression DVT prophylaxis Lovenox. GI prophylaxis Protonix
[2021-03-04] MEDS ORDERED: DEXTROSE 5%-0.9% NACL 1,000 ML IV SCH (11:45)
[2021-03-04] MEDS ORDERED: DEXTROSE 5% IN WATER 1,000 ML IV SCH (11:45)
[2021-03-04] MEDS: NAPHAZOLINE-PHENIRA 0.025-0.3% DROPS 15 ML BTL BOTH EYES SCH ×2 (13:37→17:52)
[2021-03-04 14:10] VITALS: BMI 25.4
[2021-03-04] MEDS ORDERED: ATORVASTATIN 20 MG TAB PO SCH (21:00)
[2021-03-04] MEDS: ALPRAZolam 0.25 MG TAB PO PRN (22:30)
[2021-03-05] MEDS: NAPHAZOLINE-PHENIRA 0.025-0.3% DROPS 15 ML BTL BOTH EYES SCH ×3 (03:58→12:41)
[2021-03-05] MEDS: LEVOTHYROXINE 100 MCG TAB PO SCH (06:24)
[2021-03-05] MEDS: MONTELUKAST 10 MG TAB PO SCH (07:52)
[2021-03-05] MEDS: amLODIPine 10 MG TAB PO SCH (07:52)
[2021-03-05] MEDS: CYANOCOBALAMIN 500 MCG TAB PO SCH (07:52)
[2021-03-05] MEDS: PANTOPRAZOLE 40 MG TABLET PO SCH (07:53)
[2021-03-05] MEDS: LORATADINE 10 MG TAB PO SCH (07:53)
[2021-03-05] MEDS: CITALOPRAM HYDROBROMIDE 10 MG TAB PO SCH (07:53)
[2021-03-05] MEDS: DULoxetine HCL 60 MG CAPSULE.DR PO SCH (07:53)
[2021-03-05] MEDS: FLUTICASONE 50MCG/SPRAY NASAL 16GM EA NOSTRIL SCH (07:54)
[2021-03-05] MEDS: ALBUTEROL NEBULIZED 2.5 MG/3 ML INHALATION SCH ×2 (08:02→11:46)
[2021-03-05] MEDS: FLUTICASONE 110 MCG INHALER INHALATION SCH (08:07)
[2021-03-05] MEDS ORDERED: ENOXAPARIN 40 MG/0.4 ML SYRINGE SQ SCH (09:00)
--- NOTE | 2021-03-05 10:03 | P.PN ---
Subjective Patient is seen in follow-up for hyponatremia. Sodium level came up to 134 yesterday and she received D5W for short duration and repeat sodium level as of yesterday evening was 130. She is maintained on fluid restriction. Oral intake is improving. No vomiting or diarrhea. Vital signs are stable. General: The patient appeared well nourished and normally developed. HEENT: Head exam is unremarkable. Neck is without jugular venous distension. LUNGS: Lungs are clear to auscultation and percussion. Breath sounds decreased. HEART: Rate and Rhythm are regular. ABDOMEN: Soft, no distention. EXTREMITITES: No edema. Objective - Vital Signs Vital signs: Vital Signs Temp 97.9 F 03/05/21 07:47 Pulse 78 03/05/21 08:13 Resp 18 03/05/21 08:13 BP 117/74 03/05/21 07:47 Pulse Ox 96 03/05/21 07:47 Intake & Output 03/04/21 03/05/21 03/05/21 18:59 06:59 18:59 Weight 61.235 kg Other: Voiding Method Toilet Toilet Toilet Diaper Diaper Diaper - Labs CBC & Chem 7: 03/03/21 13:35 03/04/21 16:34 Labs: Abnormal Lab Results - Last 24 Hours (Table) 03/04/21 Range/Units 16:34 Sodium 130 L (137-145) mmol/L Microbiology - Last 24 Hours (Table) 03/03/21 13:35 Urine Culture - Final Urine,Clean Catch Assessment and Plan Plan: Assessment: 1. Hyponatremia from poor solute intake and excess fluid intake. Additionally she is on Mobic, Celexa as well as Cymbalta which can all induce SIADH. Sodium level improving. Urine osmolality low at 168. Urine sodium 64. TSH normal. 2. Benign hypertension. Controlled. Plan: Maintain fluid restriction. Encourage oral intake, particularly protein. Morning labs pending.
[2021-03-05 11:00] LABS: African American GFR (CKD) 100.3 (60.0-200.0); Anion Gap 9.5 mmol/L (4.00-12.00); BUN/Creat Ratio 8.57 Ratio (12.00-20.00); Calcium 9.2 mg/dL (8.7-10.3); Carbon Dioxide 21.5 mmol/L (21.6-31.8); Magnesium 1.8 mg/dL (1.5-2.4); Non-African American GFR(CKD) 86.6 (60.0-200.0); Potassium 3.7 mmol/L (3.5-5.5)
[2021-03-05 15:05] VITALS: BP 134/77; PULSE 97; RESP 16; TEMP 98.2
--- NOTE | 2021-03-10 13:15 | P.DS ---
Providers Date of admission: 03/03/21 16:27 Expected date of discharge: 03/05/21 Attending physician: Justen Kunz Consults: 03/03/21 16:26 Consult Physician Urgent Consulting Provider: Oliverio Alfonso Consult Reason/Comments: Hyponatremia Do you want consulting provider notified?: Yes Primary care physician: Opal Mcghee Hospital Course: Discharge diagnosis 1. Hyponatremia. Initial sodium level 125. Sodium level improved to 134. Nephrology services are following. Sodium chloride tab 1 g added twice daily. Fluid restrictions of 1200 mL urine sodium pending 2. Urinary tract infection. Patient started on Rocephin. Urine culture ordered 3. Intermittent episodes of shortness of breath. Patient was recently evaluated in patient with pulmonary services in which CTA,ABGs, and pulmonary function tests were all completed. Patient reports that there has been improvement with her shortness of breath since improvement with sodium leve 4. History of asthma no exacerbation at this time 5. History of fibromyalgia 6. History of GERD 7. History of osteoporosis or arthritis 8. Hypothyroidism 9. History of anxiety and depression Hospital course Bharati Pan is a 70-year-old female patient who presented to the ER with concerns of low sodium level per her PCP. Patient follows regularly with Dr. mcghee. Patient reports that she has close monitoring of her sodium level and had labs completed on Monday her sodium level was 129. Patient reports that over the past few days she has been having increased weakness and shortness of breath which of the symptoms she had with her previous episode of hyponatremia. Patient decided to come to ER for further evaluation. Upon arrival sodium is on the 125. Patient did receive 1 L bolus in ER. Patient denies any recent illness. During previous hospital patient patient was thoroughly worked up by pulmonary services for shortness of breath with no significant findings. Patient denies any recent acute illness. Patient does have a past medical history of asthma, fibromyalgia, GERD, arthritis, thyroid disorder, anxiety, depression and PTSD. At this time nephrology services will be consulted. UA also positive for urinary tract infection. Urine culture has been ordered. Patient will be started on Rocephin. At this time patient reports that she feels slightly improved. Patient denies any chest pain or shortness breath. Patient denies nausea vomiting or diarrhea. Patient denies any urinary burning or frequency. On 03/04/2021 patient alert and oriented 3. Patient reports that she does feel improved and less weak. Repeat sodium level CXXXIV. Nephrology services are following. Sodium chloride tablet added. Fluid restriction 1200 miles. Repeat labs ordered for a.m. this time patient denies chest pain or shortness breath. Patient denies nausea vomiting or diarrhea. Patient denies any urinary burning or frequency On 03/05/2021 patient alert and oriented 3. Sodium at discharge 135. Patient will be discharged on sodium chloride tab and Ceftin for urinary tract infection. Patient to follow-up with PCP for further management. At this time patient denies chest pain or shortness breath. Patient denies nausea vomiting or diarrhea. Patient denies any urinary burning or frequency Patient Condition at Discharge: Stable Plan - Discharge Summary Discharge Rx Participant: No New Discharge Prescriptions: New Sodium Chloride Tab 1 gm PO BID 30 Days #60 tablet Cefuroxime Axetil [Ceftin] 500 mg PO BID 5 Days #10 tab Continue ALPRAZolam [Xanax] 0.25 mg PO Q8H PRN PRN Reason: Anxiety Dicyclomine [Bentyl] 20 mg PO QID PRN PRN Reason: IBS DULoxetine HCL [Cymbalta] 60 mg PO DAILY SUMAtriptan SUCCINATE [Imitrex] 25 mg PO DAILY PRN PRN Reason: Migraine Headache Levothyroxine Sodium [Synthroid] 100 mcg PO DAILY Citalopram Hydrobromide [CeleXA] 10 mg PO DAILY methocarbamoL [Methocarbamol] 500 mg PO QID PRN PRN Reason: Spasms Chlorpheniramine/Dextromethorp [Coricidin Hbp Cough-Cold Tab] 1 tab PO BID PRN PRN Reason: Cough Cyanocobalamin (Vitamin B-12) [Vitamin B-12] 1,000 mcg PO DAILY Propylene Glycol/Peg 400/Pf [Systane 0.3-0.4% Eye Drop] 1 drop BOTH EYES TID PRN PRN Reason: Dry Eye(S) Mometasone Furoate [Asmanex Hfa] 2 puff INHALATION RT-DAILY amLODIPine [Norvasc] 10 mg PO DAILY Calcium/D3/Zinc/Copper/Salma [Citracal-D3 Maximum Plus Caplt] 2 tab PO DAILY Acetaminophen/Diphenhydramine [Tylenol PM 500-25mg] 2 tab PO HS Montelukast [Singulair] 10 mg PO DAILY Meloxicam [Mobic] 15 mg PO DAILY PRN PRN Reason: Pain Atorvastatin [Lipitor] 20 mg PO HS Albuterol Nebulized [Ventolin Nebulized] 2.5 mg INHALATION RT-BID Omeprazole 20 mg PO BID Fluticasone Nasal [place] [Flonase Nasal [place]] 1 spray EA NOSTRIL DAILY guaiFENesin-DM 600/30MG [Mucinex Dm] 1 tab PO BID PRN PRN Reason: Cough Loratadine [Claritin] 10 mg PO DAILY Discharge Medication List ALPRAZolam [Xanax] 0.25 mg PO Q8H PRN 09/17/16 [History] DULoxetine HCL [Cymbalta] 60 mg PO DAILY 09/17/16 [History] Dicyclomine [Bentyl] 20 mg PO QID PRN 09/17/16 [History] Levothyroxine Sodium [Synthroid] 100 mcg PO DAILY 09/17/16 [History] SUMAtriptan SUCCINATE [Imitrex] 25 mg PO DAILY PRN 09/17/16 [History] Citalopram Hydrobromide [CeleXA] 10 mg PO DAILY 01/05/18 [History] Acetaminophen/Diphenhydramine [Tylenol PM 500-25mg] 2 tab PO HS 02/09/21 [History] Albuterol Nebulized [Ventolin Nebulized] 2.5 mg INHALATION RT-BID 02/09/21 [History] Atorvastatin [Lipitor] 20 mg PO HS 02/09/21 [History] Calcium/D3/Zinc/Copper/[place] [Citracal-D3 Maximum Plus Caplt] 2 tab PO DAILY 02/09/21 [History] Meloxicam [Mobic] 15 mg PO DAILY PRN 02/09/21 [History] Montelukast [Singulair] 10 mg PO DAILY 02/09/21 [History] amLODIPine [Norvasc] 10 mg PO DAILY 02/09/21 [History] methocarbamoL [Methocarbamol] 500 mg PO QID PRN 02/09/21 [History] Chlorpheniramine/Dextromethorp [Coricidin Hbp Cough-Cold Tab] 1 tab PO BID PRN 03/03/21 [History] Cyanocobalamin (Vitamin B-12) [Vitamin B-12] 1,000 mcg PO DAILY 03/03/21 [History] Fluticasone Nasal [place] [Flonase Nasal [place]] 1 spray EA NOSTRIL DAILY 03/03/21 [History] Loratadine [Claritin] 10 mg PO DAILY 03/03/21 [History] Mometasone Furoate [Asmanex Hfa] 2 puff INHALATION RT-DAILY 03/03/21 [History] Omeprazole 20 mg PO BID 03/03/21 [History] Propylene Glycol/Peg 400/Pf [Systane 0.3-0.4% Eye Drop] 1 drop BOTH EYES TID PRN 03/03/21 [History] guaiFENesin-DM 600/30MG [Mucinex Dm] 1 tab PO BID PRN 03/03/21 [History] Cefuroxime Axetil [Ceftin] 500 mg PO BID 5 Days #10 tab 03/05/21 [Rx] Sodium Chloride Tab 1 gm PO BID 30 Days #60 tablet 03/05/21 [Rx] Follow up Appointment(s)/Referral(s): Opal Mcghee MD [Primary Care Provider] - 1-2 days Patient Instructions/Handouts: Hyponatremia (DC), Fluid Restriction (DC) Activity/Diet/Wound Care/Special Instructions: 1200ml fluid restriction Discharge Disposition: HOME SELF-CARE
== END 2021-03-05 15:45 | disposition home or self-care (01) | DRG 641 ==
LOC: EC 12:39 → 4SSUR 16:27
PROVIDERS: ADMIT Internal Medicine; ATTEND Internal Medicine
DX: E87.1 Hypo-osmolality and hyponatremia (principal); N39.0 Urinary tract infection, site not specified; E03.9 Hypothyroidism, unspecified; E11.9 Type 2 diabetes mellitus without complications; F32.9 Major depressive disorder, single episode, unspecified; F43.10 Post-traumatic stress disorder, unspecified; R06.02 Shortness of breath; I10 Essential (primary) hypertension; K21.9 Gastro-esophageal reflux disease without esophagitis; G43.909 Migraine, unspecified, not intractable, without status migrainosus; M79.7 Fibromyalgia; R05 Cough; M81.0 Age-related osteoporosis without current pathological fracture; J45.909 Unspecified asthma, uncomplicated; K44.9 Diaphragmatic hernia without obstruction or gangrene; F41.9 Anxiety disorder, unspecified; Z20.822 Contact with and (suspected) exposure to COVID-19; Z79.1 Long term (current) use of non-steroidal anti-inflammatories (NSAID); Z79.890 Hormone replacement therapy; Z79.899 Other long term (current) drug therapy; Z87.891 Personal history of nicotine dependence; Z91.048 Other nonmedicinal substance allergy status; Z87.19 Personal history of other diseases of the digestive system; Z90.49 Acquired absence of other specified parts of digestive tract; Z85.9 Personal history of malignant neoplasm, unspecified; Z79.84 Long term (current) use of oral hypoglycemic drugs
CPT/HCPCS: 36415; 80048; 80053; 81001; 83735; 83930; 83935; 84295; 84300; 84443; 85025; 87086; 87635; 93005; 94640; 96360; 96361; 99285

== ENCOUNTER → 2021-04-27 | Outpatient (CLI) | payer MEDICARE ==
--- NOTE | 2021-04-27 12:46 | BD ---
EXAMINATION TYPE: Axial Bone Density DATE OF EXAM: 04/27/2021 COMPARISON: DEXA bone scan April 16, 2018 CLINICAL HISTORY: Postmenopausal female Nuclear Medicine Study in the last 2 weeks: Barium Study in the last week: : Height: 64 inches Weight: 126.2 pounds FRAX RISK QUESTIONS: Alcohol (3 or more units per day): no Family History (Parent hip fracture): no Glucocorticoids (More than 3mos): no (Ex: prednisone, prednisolone, methylprednisolone, dexamethasone, and hydrocortisone). History of Fracture in Adulthood: no Secondary Osteoporosis: 1. Type 1 Diabetes: no 2. Hyperthyroidism: no 3. Menopause before 45: no 4. Malnutrition: no 5. Chronic liver disease: no Rheumatoid Arthritis: no Current Tobacco Use: no RISK FACTORS HISTORY OF: Surgery to Spine/Hip(right/left)/Wrist (right/left): lumbar spine When: 2019 Family History of Osteoporosis: no Active: yes Diet low in dairy products/other sources of calcium: no Postmenopausal woman: age 49 Lost more than 2 inches in height since high school: no MEDICATIONS: xanax, Lipitor Thyroid Medications: Synthroid How Lon years Additional History: EXAM MEASUREMENTS: Bone mineral densitometry was performed using the [employer] System. Bone mineral density about the R hip (g/cm2): 0.651 Bone mineral density about the L hip (g/cm2): 0.7112 T Score values are as follows: -----R Neck: -2.8 -----L Neck: -2.3 -----R Total: -2.5 -----L Total: -2.4 Bone mineral density has: decreased -11.3 % since study of: 04.16.2018 Bone mineral density about the L Wrist (g/cm2): 0.479 T Score values are as follows: -----Dist. R+U: -3.9 -----Prox. R+U: -2.7 -----Radius total: -3.2 Bone mineral density : baseline IMPRESSION: Osteoporosis (T Score less than -2.5) is now present. There is increased fracture risk and therapy is usually indicated based on age. Re-Screen 1-2 years. NOTE: T-SCORE=SD OF THE YOUNG ADULT MEAN.
--- NOTE | 2021-04-28 10:22 | MM ---
Reason for exam: screening (asymptomatic). Last mammogram was performed 3 years ago. History: Patient is postmenopausal. Benign right mammotome panel of the right breast, March 27, 2012. Benign excisional biopsy of the right breast. Took estrogen for 5 years. Took progesterone for 5 years. Physical Findings: A clinical breast exam by your physician is recommended on an annual basis and results should be correlated with mammographic findings. MG 3D Screening Mammo W/Cad Bilateral CC and MLO view(s) were taken. Prior study comparison: April 16, 2018, bilateral MG 3d screening mammo w/cad. The breast tissue is heterogeneously dense. This may lower the sensitivity of mammography. Stable benign calcifications. Stable benign nodule right breast previously sampled. No significant changes when compared with prior studies. ASSESSMENT: Benign, BI-RAD 2 RECOMMENDATION: Routine screening mammogram of both breasts in 1 year.
== END | disposition home or self-care (01) ==
LOC: RADMAMWWP 08:02
PROVIDERS: ATTEND Family Medicine
DX: Z12.31 Encounter for screening mammogram for malignant neoplasm of breast (principal); M81.0 Age-related osteoporosis without current pathological fracture; Z78.0 Asymptomatic menopausal state
CPT/HCPCS: 77063; 77067; 77080

== ENCOUNTER → 2021-06-01 | Outpatient (CLI) | payer MEDICARE ==
[~2021-06-01] MED LIST: SODIUM CHLORIDE 0.9% 500 ML 500 ML in EMPTY BAG 1 BAG IV PRN; ZOLEDRONIC ACID 5 MG in SODIUM CHLORIDE 0.9% 100 ML IV NR
[2021-06-01 08:52] VITALS: BP 139/66; PULSE 74; RESP 16; TEMP 97.8
== END ==
LOC: PROCWHC3 08:35
PROVIDERS: ATTEND Nurse Practitioner Family
DX: M81.0 Age-related osteoporosis without current pathological fracture (principal); Z87.891 Personal history of nicotine dependence; Z91.048 Other nonmedicinal substance allergy status
CPT/HCPCS: 96365; J3489

== ENCOUNTER 2021-08-25 21:09 | Inpatient (IN) | payer MEDICARE ==
--- NOTE | 2021-08-25 21:35 | ED ---
Syncope HPI - General Stated Complaint: Syncope Time Seen by Provider: 08/25/21 21:16 - History of Present Illness Initial Comments: Patient is a 70-year-old female with past medical history of thyroid disorder, fibromyalgia, hyponatremia who presents emergency department with reported syncope. Patient was attempting to make a sandwich in her kitchen when she felt like she is to pass out. She attempted to sit down however did not make it into the chair. She fell backwards and hit her head on the laminate. heard her fall. States he was in the room within 10 seconds. She was out for approximately a minute before she awakened. There was no seizure-like activity. EMS established an IV. Her glucose was 121. She is given formal grams of Zofran. She refused a c-collar. She does admit to some posterior occipital pain. No neck pain. No numbness, tingling or weakness in her extremities. She denies fevers. She denies having any chest pain or shortness of breath previous to the episode. She is not on any blood thinners. Does admit to some reflux sensation. No abdominal pain. No recent illnesses. No recent medication antunez ges. Does admit that she has issues with hyponatremia in the past and takes sodium tablet at this time. No other alleviating, Perceptin or modifying factors - Related Data Home Medications Medication Instructions Recorded Confirmed ALPRAZolam [Xanax] 0.25 mg PO Q8H PRN 09/17/16 08/25/21 Dicyclomine [Bentyl] 20 mg PO QID PRN 09/17/16 08/25/21 Levothyroxine Sodium [Synthroid] 100 mcg PO DAILY 09/17/16 08/25/21 SUMAtriptan SUCCINATE [Imitrex] 25 mg PO BID PRN 09/17/16 08/25/21 Acetaminophen/Diphenhydramine 2 tab PO HS PRN 02/09/21 08/25/21 [Tylenol PM 500-25mg] Albuterol Nebulized [Ventolin 2.5 mg INHALATION RT-Q4H PRN 02/09/21 08/25/21 Nebulized] Atorvastatin [Lipitor] 20 mg PO HS 02/09/21 08/25/21 Calcium/D3/Zinc/Copper/Salma 2 tab PO DAILY 02/09/21 08/25/21 [Citracal-D3 Maximum Plus Caplt] Meloxicam [Mobic] 15 mg PO DAILY PRN 02/09/21 08/25/21 amLODIPine [Norvasc] 10 mg PO DAILY 02/09/21 08/25/21 methocarbamoL [Methocarbamol] 500 mg PO QID PRN 02/09/21 08/25/21 Cyanocobalamin (Vitamin B-12) 1,000 mcg PO DAILY 03/03/21 08/25/21 [Vitamin B-12] Loratadine [Claritin] 10 mg PO DAILY PRN 03/03/21 08/25/21 Acetaminophen [Tylenol Extra 1,000 mg PO Q6HR PRN 06/01/21 08/25/21 Strength] Acetaminophen/Chlorpheniramine 1 tab PO Q4H PRN 08/25/21 08/25/21 [Coricidin Hbp Cold & Flu Tab] Allergy Injection 1 dose INJ Q7D 08/25/21 08/25/21 Cholecalciferol [Vitamin D3 (25 50 mcg PO DAILY 08/25/21 08/25/21 Mcg = 1000 Iu)] Esomeprazole Magnesium [NexIUM 20 mg PO DAILY PRN 08/25/21 08/25/21 24Hr] Fluticasone Nasal [place] [Flonase 1 spray EA NOSTRIL DAILY 08/25/21 08/25/21 Nasal [place]] Fluticasone/Umeclidin/Vilanter 1 puff INHALATION RT-DAILY 08/25/21 08/25/21 [Trelegy Ellipta 200-62.5-25] Previous Rx's Medication Instructions Recorded Sodium Chloride Tab 1 gm PO BID 30 Days #60 tablet 03/05/21 Allergies Allergy/AdvReac Type Severity Reaction Status Date / Time adhesive tape Allergy Severe Rash/Hives Verified 08/25/21 22:10 Review of Systems ROS Statement: Those systems with pertinent positive or pertinent negative responses have been documented in the HPI. ROS Other: All systems not noted in ROS Statement are negative. Past Medical History Past Medical History: Asthma, Cancer, Fibromyalgia, GERD/Reflux, Osteoarthritis (OA), Thyroid Disorder Additional Past Medical History / Comment(s): Migraines History of Any Multi-Drug Resistant Organisms: None Reported Past Surgical History: Adenoidectomy, Bowel Resection, Cholecystectomy, Hernia Repair, Orthopedic Surgery, Tonsillectomy Additional Past Anesthesia/Blood Transfusion Reaction / Comment(s): never had a transfusion Past Psychological History: Anxiety, Depression, PTSD Additional Psychological History / Comment(s): on meds - xanax & celexa Smoking Status: Former smoker Past Alcohol Use History: Occasional Additional Past Alcohol Use History / Comment(s): drinks minimum of 2 drinks daily Past Drug Use History: None Reported - Past Family History Mother Family Medical History: Congestive Heart Failure (CHF) Father History Unknown: Yes General Exam General appearance: alert, in no apparent distress Head exam: Present: atraumatic, normocephalic, normal inspection Eye exam: Present: normal appearance, PERRL, EOMI. Absent: scleral icterus, conjunctival injection, periorbital swelling ENT exam: Present: normal exam, mucous membranes moist Neck exam: Present: normal inspection. Absent: tenderness, meningismus, lymphadenopathy Respiratory exam: Present: normal lung sounds bilaterally. Absent: respiratory distress, wheezes, rales, rhonchi, stridor Cardiovascular Exam: Present: regular rate, normal rhythm, normal heart sounds. Absent: systolic murmur, diastolic murmur, rubs, gallop, clicks GI/Abdominal exam: Present: soft, normal bowel sounds. Absent: distended, t enderness, guarding, rebound, rigid Extremities exam: Present: normal inspection, full ROM, normal capillary refill. Absent: tenderness, pedal edema, joint swelling, calf tenderness Back exam: Present: normal inspection Neurological exam: Present: alert, oriented X3, CN II-XII intact Psychiatric exam: Present: normal affect, normal mood Skin exam: Present: warm, dry, intact, normal color. Absent: rash Course Vital Signs 08/25/21 08/25/21 08/25/21 21:20 22:25 23:11 Temperature 97.8 F Pulse Rate 93 86 68 Respiratory 17 18 16 Rate Blood Pressure 152/89 167/100 161/82 O2 Sat by Pulse 99 98 97 Oximetry EKG Findings - EKG Comments: EKG Findings:: EKG demonstrates sinus rhythm with rate of 89. GA interval 140. QRS 72. Qtc 433. No acute ST segment elevation or depression. Medical Decision Making - Medical Decision Making On arrival patient was placed into room 1. Thorough history and physical exam is performed and patient placed on continuous pulse ox and cardiac monitoring. IV is established laboratories is a conducted. Patient does have a sodium of 124. She is sent over for a CT of her head and cervical spine. Chest x-ray and coccyx x-ray also performed. She was given a liter bolus of normal saline. Recommended admission for syncope and hyponatremia for which patient did agree to. Spoke with Dr. Kunz who accepted the admission. - Lab Data Result diagrams: 08/25/21 21:47 08/25/21 21:47 Lab Results 08/25/21 08/25/21 08/25/21 Range/Units 21:22 21:47 21:47 WBC 11.3 H (3.8-10.6) k/uL RBC 3.95 (3.80-5.40) m/uL Hgb 13.3 (11.4-16.0) gm/dL Hct 38.1 (34.0-46.0) % MCV 96.5 (80.0-100.0) fL MCH 33.8 (25.0-35.0) pg MCHC 35.0 (31.0-37.0) g/dL RDW 11.9 (11.5-15.5) % Plt Count 354 (150-450) k/uL MPV 7.4 Neutrophils % 80 % Lymphocytes % 12 % Monocytes % 7 % Eosinophils % 1 % Basophils % 0 % Neutrophils # 9.0 H (1.3-7.7) k/uL Lymphocytes # 1.3 (1.0-4.8) k/uL Monocytes # 0.7 (0-1.0) k/uL Eosinophils # 0.1 (0-0.7) k/uL Basophils # 0.0 (0-0.2) k/uL PT 9.5 (9.0-12.0) sec INR 0.9 (<1.2) APTT 18.9 L (22.0-30.0) sec Sodium (137-145) mmol/L Potassium (3.5-5.1) mmol/L Chloride (98-107) mmol/L Carbon Dioxide (22-30) mmol/L Anion Gap mmol/L BUN (7-17) mg/dL Creatinine (0.52-1.04) mg/dL Est GFR (CKD-EPI)AfAm (>60 ml/min/1.73 sqM) Est GFR (CKD-EPI)NonAf (>60 ml/min/1.73 sqM) Glucose (74-99) mg/dL POC Glucose (mg/dL) 130 H (75-99) mg/dL POC Glu Rehabilitation Physician ID Denita Peterson Calcium (8.4-10.2) mg/dL Magnesium (1.6-2.3) mg/dL Total Bilirubin (0.2-1.3) mg/dL AST (14-36) U/L ALT (4-34) U/L Alkaline Phosphatase (38-126) U/L Troponin I (0.000-0.034) ng/mL Total Protein (6.3-8.2) g/dL Albumin (3.5-5.0) g/dL Urine Color Urine Appearance (Clear) Urine pH (5.0-8.0) Ur Specific [place] (1.001-1.035) Urine Protein (Negative) Urine Glucose (UA) (Negative) Urine Ketones (Negative) Urine Blood (Negative) Urine Nitrite (Negative) Urine Bilirubin (Negative) Urine Urobilinogen (<2.0) mg/dL Ur Leukocyte Esterase (Negative) 08/25/21 08/25/21 08/25/21 Range/Units 21:47 21:47 21:47 WBC (3.8-10.6) k/uL RBC (3.80-5.40) m/uL Hgb (11.4-16.0) gm/dL Hct (34.0-46.0) % MCV (80.0-100.0) fL MCH (25.0-35.0) pg MCHC (31.0-37.0) g/dL RDW (11.5-15.5) % Plt Count (150-450) k/uL MPV Neutrophils % % Lymphocytes % % Monocytes % % Eosinophils % % Basophils % % Neutrophils # (1.3-7.7) k/uL Lymphocytes # (1.0-4.8) k/uL Monocytes # (0-1.0) k/uL Eosinophils # (0-0.7) k/uL Basophils # (0-0.2) k/uL PT (9.0-12.0) sec INR (<1.2) APTT (22.0-30.0) sec Sodium 124 L (137-145) mmol/L Potassium 4.5 (3.5-5.1) mmol/L Chloride 93 L (98-107) mmol/L Carbon Dioxide 22 (22-30) mmol/L Anion Gap 9 mmol/L BUN 19 H (7-17) mg/dL Creatinine 0.64 (0.52-1.04) mg/dL Est GFR (CKD-EPI)AfAm >90 (>60 ml/min/1.73 sqM) Est GFR (CKD-EPI)NonAf 90 (>60 ml/min/1.73 sqM) Glucose 94 (74-99) mg/dL POC Glucose (mg/dL) (75-99) mg/dL POC Glu Rehabilitation Physician ID Calcium 8.9 (8.4-10.2) mg/dL Magnesium 2.0 (1.6-2.3) mg/dL Total Bilirubin 0.3 (0.2-1.3) mg/dL AST 21 (14-36) U/L ALT 26 (4-34) U/L Alkaline Phosphatase 44 (38-126) U/L Troponin I <0.012 (0.000-0.034) ng/mL Total Protein 6.5 (6.3-8.2) g/dL Albumin 4.2 (3.5-5.0) g/dL Urine Color Light Yellow Urine Appearance Clear (Clear) Urine pH 7.0 (5.0-8.0) Ur Specific [place] 1.006 (1.001-1.035) Urine Protein Negative (Negative) Urine Glucose (UA) Negative (Negative) Urine Ketones Negative (Negative) Urine Blood Negative (Negative) Urine Nitrite Negative (Negative) Urine Bilirubin Negative (Negative) Urine Urobilinogen <2.0 (<2.0) mg/dL Ur Leukocyte Esterase Negative (Negative) Disposition Clinical Impression: Hyponatremia, Syncope, Concussion with loss of consciousness Disposition: ADMITTED IP TO THIS HOSP Condition: Stable Is patient prescribed a controlled substance at d/c from ED?: No Referrals: Opal Mcghee MD [Primary Care Provider] - 1-2 days Decision to Admit Reason: Admit from EC Decision Date: 08/25/21 Decision Time: 23:16
[2021-08-25 21:49] LABS: Glucose,Whole Blood 130 mg/dL (75-99)
[2021-08-25 21:55] LABS: Basophils % (A) 0 %; Eosinophils # (A) 0.1 k/uL (0-0.7); Eosinophils % (A) 1 %; HCT 38.1 % (34.0-46.0); HGB 13.3 gm/dL (11.4-16.0); Lymphocytes # (A) 1.3 k/uL (1.0-4.8); Lymphocytes % (A) 12 %; MCH 33.8 pg (25.0-35.0); MCV 96.5 fL (80.0-100.0); Mean Platelet Volume 7.4; Monocytes # (A) 0.7 k/uL (0-1.0); Monocytes % (A) 7 %; Neutrophils % (A) 80 %; Platelet Count 354 k/uL (150-450); RBC 3.95 m/uL (3.80-5.40); RDW 11.9 % (11.5-15.5); WBC 11.3 k/uL (3.8-10.6)
[2021-08-25 22:04] LABS: ALT 26 U/L (4-34); AST 21 U/L (14-36); African American GFR (CKD) >90 (>60 ml/min/1.73 sqM); Albumin 4.2 g/dL (3.5-5.0); Alkaline Phosphatase 44 U/L (38-126); Anion Gap 9 mmol/L; Blood Urea Nitrogen 19 mg/dL (7-17); Calcium 8.9 mg/dL (8.4-10.2); Carbon Dioxide 22 mmol/L (22-30); Chloride 93 mmol/L (98-107); Glucose 94 mg/dL (74-99); Non-African American GFR(CKD) 90 (>60 ml/min/1.73 sqM); Potassium 4.5 mmol/L (3.5-5.1); Sodium 124 mmol/L (137-145); Total Bilirubin 0.3 mg/dL (0.2-1.3); Total Protein 6.5 g/dL (6.3-8.2)
[2021-08-25 22:35] LABS: INR 0.9 (<1.2); Prothrombin Time 9.5 sec (9.0-12.0)
[2021-08-25] MEDS ORDERED: METOCLOPRAMIDE 5 MG/ML 2 ML VIAL IVP STA (22:37)
[2021-08-25 22:38] LABS: Appearance,Urine Clear (Clear); Bilirubin,Urine Negative (Negative); Blood,Urine Negative (Negative); Color,Urine Light Yellow; Glucose,Urine (UA) Negative (Negative); Ketones,Urine Negative (Negative); Leukocyte Esterase,Urine Negative (Negative); Nitrite,Urine Negative (Negative); Protein,Urine Negative (Negative); Specific Gravity,Urine 1.006 (1.001-1.035); Urobilinogen,Urine <2.0 mg/dL (<2.0)
[2021-08-25] MEDS ORDERED: PANTOPRAZOLE 40 MG/10 ML VIAL IVP STA (22:38)
[2021-08-25] MEDS ORDERED: diphenhydrAMINE 50 MG/ML 1 ML VIAL IVP STA (22:38)
[2021-08-25 22:39] LABS: Partial Thromboplastin Time 18.9 sec (22.0-30.0)
[2021-08-25] MEDS: SODIUM CHLORIDE 0.9% 1,000 ML IV SCH (23:07)
--- NOTE | 2021-08-25 23:11 | CT ---
EXAMINATION TYPE: CT brain annabeline wo con DATE OF EXAM: 08/25/2021 COMPARISON: 08/25/2018 and 10/11/2018 HISTORY: syncope, fall CT DLP: 1227.5 mGycm Automated exposure control for dose reduction was used. There is mild cerebral atrophy. There is no mass effect nor midline shift. There is no sign of intrac ranial hemorrhage. Calvarium is intact. The skull base is intact. There is normal aeration of the mas toid sinuses. The cervical vertebra have normal alignment. There is anterior fusion surgery from C3 to C7. There is no evidence of a fracture. Facet joints are intact. There is mild hypertrophic facet arthropathy. Pr evertebral soft tissues are intact. IMPRESSION: Multilevel cervical fusion surgery. No acute fracture seen. Mild cerebral atrophy. No acute intracranial abnormality. No change compared to old exam.
--- NOTE | 2021-08-25 23:14 | XR ---
EXAMINATION TYPE: XR chest 2V DATE OF EXAM: 08/25/2021 COMPARISON: 02/09/2021 HISTORY: Cough. Chest pain TECHNIQUE: FINDINGS: There is no heart failure nor confluent pneumonic infiltrate. Costophrenic angles are clear . There are chest leads. Bony thorax is intact. IMPRESSION: No active cardiopulmonary disease. Normal heart. No change.
--- NOTE | 2021-08-25 23:16 | XR ---
EXAMINATION TYPE: XR sacrum coccyx DATE OF EXAM: 08/25/2021 COMPARISON: NONE HISTORY: Pain TECHNIQUE: 3 views FINDINGS: Sacrum and coccyx segments have normal alignment. There is no evidence for fracture. There is multilevel posterior fusion surgery in the lower lumbar spine. Sacroiliac joints are intact. There is calcified uterine fibroid. IMPRESSION: No evidence of fracture of the sacrum or coccyx.
[2021-08-25] MEDS ORDERED: NALOXONE 0.4 MG/ML 1 ML VIAL IV PRN (23:17)
[2021-08-26] MEDS: ACETAMINOPHEN TAB 325 MG TAB PO PRN ×3 (01:17→21:54)
[2021-08-26 06:17] LABS: Basophils % (A) 0 %; Eosinophils # (A) 0.1 k/uL (0-0.7); Eosinophils % (A) 1 %; HGB 12.1 gm/dL (11.4-16.0); Lymphocytes # (A) 0.9 k/uL (1.0-4.8); Lymphocytes % (A) 7 %; MCH 34.3 pg (25.0-35.0); MCHC 34.5 g/dL (31.0-37.0); MCV 99.4 fL (80.0-100.0); Mean Platelet Volume 7.1; Monocytes # (A) 0.8 k/uL (0-1.0); Monocytes % (A) 7 %; Neutrophils # (A) 10.2 k/uL (1.3-7.7); Neutrophils % (A) 84 %; Platelet Count 356 k/uL (150-450); RBC 3.51 m/uL (3.80-5.40); WBC 12.1 k/uL (3.8-10.6)
[2021-08-26 06:43] LABS: African American GFR (CKD) >90 (>60 ml/min/1.73 sqM); Anion Gap 5 mmol/L; Blood Urea Nitrogen 18 mg/dL (7-17); Calcium 8.2 mg/dL (8.4-10.2); Carbon Dioxide 23 mmol/L (22-30); Chloride 101 mmol/L (98-107); Glucose 100 mg/dL (74-99); Non-African American GFR(CKD) 85 (>60 ml/min/1.73 sqM); Potassium 4.6 mmol/L (3.5-5.1); Sodium 129 mmol/L (137-145)
[2021-08-26] MEDS ORDERED: SUMAtriptan succinate 25 MG TAB PO PRN (09:10)
[2021-08-26] MEDS ORDERED: ACETAMINOPHEN TAB 500 MG TAB PO PRN (09:10)
[2021-08-26] MEDS ORDERED: MELOXICAM 7.5 MG TAB PO PRN (09:10)
[2021-08-26] MEDS ORDERED: DICYCLOMINE 20 MG TAB PO PRN (09:10)
[2021-08-26] MEDS ORDERED: ALBUTEROL NEBULIZED 2.5 MG/3 ML INHALATION PRN (09:10)
[2021-08-26] MEDS ORDERED: PANTOPRAZOLE 40 MG TABLET PO PRN (09:10)
[2021-08-26] MEDS ORDERED: LORATADINE 10 MG TAB PO PRN (09:10)
[2021-08-26] MEDS: LEVOTHYROXINE 100 MCG TAB PO SCH (09:43)
[2021-08-26] MEDS: CHOLECALCIFEROL 25 MCG (1000 IU) TABLET PO SCH (09:43)
[2021-08-26] MEDS: CYANOCOBALAMIN 500 MCG TAB PO SCH (09:43)
[2021-08-26] MEDS: amLODIPine 10 MG TAB PO SCH (09:43)
[2021-08-26] MEDS: SODIUM CHLORIDE 0.9% 1,000 ML IV SCH ×3 (09:45→23:29)
--- NOTE | 2021-08-26 10:24 | US ---
EXAMINATION TYPE: US carotid duplex BILAT DATE OF EXAM: 08/26/2021 COMPARISON: NONE CLINICAL HISTORY: syncope. EXAM MEASUREMENTS: RIGHT: Peak Systolic Velocity (PSV) cm/sec ----- Right CCA: 95.9 ----- Right ICA: 115 ----- Right ECA: 128 ICA/CCA ratio: 1.2 RIGHT: End Diastole cm/sec ----- Right CCA: 22.5 ----- Right ICA: 40.5 ----- Right ECA: 15.0 LEFT: Peak Systolic Velocity (PSV) cm/sec ----- Left CCA: 75.9 ----- Left ICA: 127 ----- Left ECA: 116 ICA/CCA ratio: 1.7 LEFT: End Diastole cm/sec ----- Left CCA: 16.7 ----- Left ICA: 41.2 ----- Left ECA: 15.7 VERTEBRALS (direction of flow): Right Vertebral: Antegrade Left Vertebral: Antegrade Rhythm: Normal No elevated velocities IMPRESSION: 1. No significant hemodynamic stenosis. Criteria for Assigning % of Stenosis / Diameter reduction (Estimation based on the indirect measurements of the internal carotid artery velocities (ICA PSV). 1. Normal (no stenosis)=ICA PSV < 125 cm/s: ratio < 2.0: ICA EDV<40 cm/s. 2. Less than 50% stenosis=ICA PSV < 125 cm/s: ratio < 2.0: ICA EDV<40 cm/s. 3. 50 to 69% stenosis=ICA PSV of 125 to 230 cm/s: ration 2.0 ? 4.0: ICA EDV 40-100 cm/s. 4. Greater than 70% stenosis to near occlusion= ICA PSV > 230 cm/s: ratio > 4.0: ICA EDV > 100 cm/s. 5. Near occlusion= ICA PSV velocities may be low or undetectable: variable ratio and ICA EDV. 6. Total occlusion=unable to detect flow.
[2021-08-26] MEDS: FLUTICASONE 50MCG/SPRAY NASAL 16GM EA NOSTRIL SCH (10:27)
--- NOTE | 2021-08-26 11:00 | ECHOF ---
Referral Reason:syncope MEASUREMENTS -------- HEIGHT: 152.4 cm WEIGHT: 53.5 kg BP: RVIDd: 2.8 cm (< 3.3) IVSd: 1.2 cm (0.6 - 1.1) LVIDd: 3.6 cm (3.9 - 5.3) LVPWd: 1.5 cm (0.6 - 1.1) IVSs: 1.6 cm LVIDs: 2.7 cm LVPWs: 1.2 cm LA Diam: 4.2 cm (2.7 - 3.8) Ao Diam: 2.5 cm (2.0 - 3.7) AV Cusp: 1.7 cm (1.5 - 2.6) MV EXCURSION: 21.784 mm (> 18.000) MV EF SLOPE: 91 mm/s (70 - 150) EPSS: 0.2 cm MV E Williams: 0.83 m/s MV DecT: 215 ms MV A Williams: 1.03 m/s MV E/A Ratio: 0.80 RAP: 5.00 mmHg RVSP: 31.62 mmHg FINDINGS -------- Sinus rhythm. This was a technically adequate study. LV size, wall thickness and systolic function are normal, with an EF greater than 55%. The left brian tricular size is normal. The right ventricle is normal in size. The left atrium is mildly dilated. The right atrial size is normal. There is mild aortic valve sclerosis. There is no evidence of aortic regurgitation. Mild mitral annular calcification present. Mild mitral regurgitation is present. Mild tricuspid regurgitation present. Right ventricular systolic pressure is normal at < 35 mmHg. There is no pulmonic regurgitation present. The aortic root size is normal. Echo free space indicative of a pericardial fat pad. CONCLUSIONS -------- 1. LV size, wall thickness and systolic function are normal, with an EF greater than 55%. 2. The left ventricular size is normal. 3. The right ventricle is normal in size. 4. The left atrium is mildly dilated. 5. The right atrial size is normal. 6. There is mild aortic valve sclerosis. 7. Mild mitral annular calcification present. 8. Mild mitral regurgitation is present. 9. Mild tricuspid regurgitation present. 10. The aortic root size is normal. 11. Echo free space indicative of a pericardial fat pad. HAND CELL TUBER: Annel Quintero RDCS
--- NOTE | 2021-08-26 13:15 | P.CRDCN ---
History of Present Illness Consult date: 08/26/21 History of present illness: HISTORY OF PRESENT ILLNESS: This is a 70 year old female with a past medical history significant for hypertension, hyponatremia, and daily alcohol use. 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 We have been asked to see the patient in consultation for syncope. Patient examined at the bedside. Patient states yesterday she was in her kitchen and was going to make something to eat. She reports feeling dizzy and lightheaded and then she passed out. Her was home and witnessed this. She had have a loss of consciousness. Patient denies having any previous episodes of syncope. However she does report having similar symptoms in the past when she had low sodium levels. She denies chest pain or pressure. Denies shortness of breath. Currently denies dizziness or lightheadedness. She denies palpitations. Vital signs are stable. EKG reveals sinus mechanism with no signs of acute ischemia Chest xray no active cardiopulmonary disease Laboratory data: WBC 12.1. Hemoglobin 12.1. Platelet count 356. Sodium 124. Repeat 129. Potassium 4.6. BUN 18. Creatinine 0.72. Current home cardiac medications include atorvastatin 20 mg at night and amlodipine 10 mg daily Most recent echocardiogram obtained revealed ejection fraction 55%, mild mitral regurgitation, mild tricuspid regurgitation Carotid doppler: negative for significant stenosis bilaterally REVIEW OF SYSTEMS: At the time of my exam: CONSTITUTIONAL: Denies fever or chills. HEENT: Denies blurred vision, vision changes, or eye pain. Denies hemoptysis CARDIOVASCULAR: Denies chest pain. Denies orthopnea. Denies PND. Denies palpitations RESPIRATORY: Denies shortness of breath. GASTROINTESTINAL: Denies abdominal pain. Denies nausea or vomiting. HEMATOLOGIC: Denies bleeding disorders. GENITOURINARY: Denies any blood in urine. SKIN: Denies pruitis. Denies rash. PHYSICAL EXAM: VITAL SIGNS: Reviewed. GENERAL: Well-developed in no acute distress. HEENT: Head is normocephalic. Pupils are equal, round. Sclerae anicteric. Mucous membranes of the mouth are moist. Neck supple. No JVD or thyromegaly LUNGS: Respirations even and unlabored. Lungs essentially clear to auscultation bilaterally. HEART: Regular rate and rhythm. S1 and S2 heard. ABDOMEN: Soft. Nondistended. Nontender. EXTREMITIES: Normal range of motion. No clubbing or cyanosis. Peripheral pulses intact. No lower extremity edema NEUROLOGIC: Awake and alert. Oriented x 3. ASSESSMENT: Syncope Hyponatremia Hypertension Hyperlipidemia Daily alcohol use PLAN: 2D echo obtained and reviewed Check D-Dimer Check urine sodium and osmolality Check cortisol level Obtain orthostatic blood pressures Nephrology consulted. Await evaluation Further recommendations pending patient's course Nurse practitioner note has been reviewed by physician. Signing provider agrees with the documented findings, assessment, and plan of care. Past Medical History Past Medical History: Asthma, Cancer, Fibromyalgia, GERD/Reflux, Osteoarthritis (OA), Thyroid Disorder Additional Past Medical History / Comment(s): Migraines History of Any Multi-Drug Resistant Organisms: None Reported Past Surgical History: Adenoidectomy, Bowel Resection, Cholecystectomy, Hernia Repair, Orthopedic Surgery, Tonsillectomy Additional Past Anesthesia/Blood Transfusion Reaction / Comment(s): never had a transfusion Past Psychological History: Anxiety, Depression, PTSD Additional Psychological History / Comment(s): on meds - xanax & celexa Smoking Status: Former smoker Past Alcohol Use History: Occasional Additional Past Alcohol Use History / Comment(s): drinks minimum of 2 drinks daily Past Drug Use History: None Reported - Past Family History Mother Family Medical History: Congestive Heart Failure (CHF) Father History Unknown: Yes Medications and Allergies Home Medications Medication Instructions Recorded Confirmed Type ALPRAZolam [Xanax] 0.25 mg PO Q8H PRN 09/17/16 08/25/21 History Dicyclomine [Bentyl] 20 mg PO QID PRN 09/17/16 08/25/21 History Levothyroxine Sodium [Synthroid] 100 mcg PO DAILY 09/17/16 08/25/21 History SUMAtriptan SUCCINATE [Imitrex] 25 mg PO BID PRN 09/17/16 08/25/21 History Acetaminophen/Diphenhydramine 2 tab PO HS PRN 02/09/21 08/25/21 History [Tylenol PM 500-25mg] Albuterol Nebulized [Ventolin 2.5 mg INHALATION RT-Q4H PRN 02/09/21 08/25/21 History Nebulized] Atorvastatin [Lipitor] 20 mg PO HS 02/09/21 08/25/21 History Calcium/D3/Zinc/Copper/Salma 2 tab PO DAILY 02/09/21 08/25/21 History [Citracal-D3 Maximum Plus Caplt] Meloxicam [Mobic] 15 mg PO DAILY PRN 02/09/21 08/25/21 History amLODIPine [Norvasc] 10 mg PO DAILY 02/09/21 08/25/21 History methocarbamoL [Methocarbamol] 500 mg PO QID PRN 02/09/21 08/25/21 History Cyanocobalamin (Vitamin B-12) 1,000 mcg PO DAILY 03/03/21 08/25/21 History [Vitamin B-12] Loratadine [Claritin] 10 mg PO DAILY PRN 03/03/21 08/25/21 History Sodium Chloride Tab 1 gm PO BID 30 Days #60 tablet 03/05/21 08/25/21 Rx Acetaminophen [Tylenol Extra 1,000 mg PO Q6HR PRN 06/01/21 08/25/21 History Strength] Acetaminophen/Chlorpheniramine 1 tab PO Q4H PRN 08/25/21 08/25/21 History [Coricidin Hbp Cold & Flu Tab] Allergy Injection 1 dose INJ Q7D 08/25/21 08/25/21 History Cholecalciferol [Vitamin D3 (25 50 mcg PO DAILY 08/25/21 08/25/21 History Mcg = 1000 Iu)] Esomeprazole Magnesium [NexIUM 20 mg PO DAILY PRN 08/25/21 08/25/21 History 24Hr] Fluticasone Nasal [place] [Flonase 1 spray EA NOSTRIL DAILY 08/25/21 08/25/21 History Nasal [place]] Fluticasone/Umeclidin/Vilanter 1 puff INHALATION RT-DAILY 08/25/21 08/25/21 History [[place] Ellipta 200-62.5-25] Allergies Allergy/AdvReac Type Severity Reaction Status Date / Time adhesive tape Allergy Severe Rash/Hives Verified 08/25/21 22:10 Physical Exam Vitals: Vital Signs Temp Pulse Pulse Pulse Resp BP BP 08/26/21 12:22 98.2 F 87 17 136/81 08/26/21 03:33 98.4 F 74 18 128/72 08/26/21 03:32 74 16 08/26/21 02:40 80 16 124/60 08/26/21 01:15 97.6 F 82 16 147/81 12/16/21 00:02 86 18 08/25/21 23:11 68 16 161/82 08/25/21 22:25 97.8 F 86 18 167/100 08/25/21 21:20 93 17 152/89 Pulse Ox 08/26/21 12:22 97 08/26/21 03:33 97 08/26/21 03:32 08/26/21 02:40 97 08/26/21 01:15 98 08/26/21 00:02 97 08/25/21 23:11 97 08/25/21 22:25 98 08/25/21 21:20 99 Intake and Output 08/25/21 08/26/21 08/26/21 22:59 06:59 14:59 Intake Total 390 Balance 390 Intake: Intake, IV Titration 390 Amount Sodium Chloride 0.9% 1, 390 000 ml @ 130 mls/hr IV . Q7H42M [facility] Rx#:[id number] Other: Voiding Method Toilet # Voids 5 Weight 53.524 kg 53.524 kg Results 08/26/21 05:41 08/26/21 05:41 Cardiac Enzymes 08/25/21 08/25/21 Range/Units 21:47 21:47 AST 21 (14-36) U/L Troponin I <0.012 (0.000-0.034) ng/mL Coagulation 08/25/21 Range/Units 21:47 PT 9.5 (9.0-12.0) sec APTT 18.9 L (22.0-30.0) sec CBC 08/25/21 08/26/21 Range/Units 21:47 05:41 WBC 11.3 H 12.1 H (3.8-10.6) k/uL RBC 3.95 3.51 L (3.80-5.40) m/uL Hgb 13.3 12.1 (11.4-16.0) gm/dL Hct 38.1 35.0 (34.0-46.0) % Plt Count 354 356 (150-450) k/uL Comprehensive Metabolic Panel 08/25/21 08/26/21 Range/Units 21:47 05:41 Sodium 124 L 129 L (137-145) mmol/L Potassium 4.5 4.6 (3.5-5.1) mmol/L Chloride 93 L 101 (98-107) mmol/L Carbon Dioxide 22 23 (22-30) mmol/L BUN 19 H 18 H (7-17) mg/dL Creatinine 0.64 0.72 (0.52-1.04) mg/dL Glucose 94 100 H (74-99) mg/dL Calcium 8.9 8.2 L (8.4-10.2) mg/dL AST 21 (14-36) U/L ALT 26 (4-34) U/L Alkaline Phosphatase 44 (38-126) U/L Total Protein 6.5 (6.3-8.2) g/dL Albumin 4.2 (3.5-5.0) g/dL Current Medications Generic Name Dose Route Start Last Admin Trade Name Freq PRN Reason Stop Dose Admin Acetaminophen 650 mg 08/25/21 23:17 08/26/21 07:45 Acetaminophen Tab 325 Mg Tab PO 650 mg Q6HR PRN Administration Mild Pain or Fever > 100.5 Acetaminophen 1,000 mg 08/26/21 09:10 Acetaminophen Tab 500 Mg Tab PO Q6HR PRN Mild to Moderate Pain Albuterol Sulfate 2.5 mg 08/26/21 09:10 Albuterol Nebulized 2.5 Mg/3 Ml INHALATION RT-Q4H PRN difficulty breathing Alprazolam 0.25 mg 08/26/21 09:10 Alprazolam 0.25 Mg Tab PO Q8H PRN Anxiety Amlodipine Besylate 10 mg 08/26/21 09:15 08/26/21 09:43 Amlodipine 10 Mg Tab PO 10 mg DAILY [facility] Administration Atorvastatin Calcium 20 mg 08/26/21 21:00 Atorvastatin 20 Mg Tab PO HS [facility] Budesonide/Formoterol Fumarate 2 puff 08/26/21 20:00 Symbicort 80-4.5 Mcg Inhaler INHALATION RT-BID [facility] Calcium Carbonate 2 each 08/27/21 09:00 Calcium Carb-Vit D 500 Mg-5 Mcg Tab PO DAILY [facility] Cholecalciferol 50 mcg 08/26/21 09:15 12 09:43 Cholecalciferol 25 Mcg (1000 Iu) Tablet PO 50 mcg DAILY ASHIA Administration Cyanocobalamin 1,000 mcg 08/26/21 09:15 08/26/21 09:43 Cyanocobalamin 500 Mcg Tab PO 1,000 mcg DAILY ASHIA Administration Dicyclomine HCl 20 mg 08/26/21 09:10 Dicyclomine 20 Mg Tab PO QID PRN IBS Fluticasone Propionate 1 spray 08/26/21 09:15 08/26/21 10:27 Fluticasone 50mcg/[place] Nasal 16gm EA NOSTRIL 1 spray DAILY [facility] Administration Sodium Chloride 1,000 mls @ 130 mls/hr 08/25/21 22:30 08/26/21 09:45 Saline 0.9% IV 130 mls/hr .Q7H42M [facility] Administration Ipratropium [place] 0.5 mg 08/27/21 08:00 Ipratropium 0.5 Mg/2.5 Ml Nebu INHALATION RT-QID [facility] Levothyroxine Sodium 100 mcg 08/26/21 09:15 08/26/21 09:43 Levothyroxine 100 Mcg Tab PO 100 mcg DAILY@0630 [facility] Administration Loratadine 10 mg 08/26/21 09:10 Loratadine 10 Mg Tab PO DAILY PRN Allergy Symptoms Meloxicam 15 mg 08/26/21 09:10 Meloxicam 7.5 Mg Tab PO DAILY PRN Pain Methocarbamol 500 mg 08/26/21 09:10 Methocarbamol 500 Mg Tab PO QID PRN Spasms Naloxone HCl 0.2 mg 08/25/21 23:17 Naloxone 0.4 Mg/Ml 1 Ml Vial IV Q2M PRN Opioid Reversal Pantoprazole Sodium 40 mg 08/26/21 09:10 Pantoprazole 40 Mg Tablet PO DAILY PRN ACID REFLUX Sodium Chloride 1 gm 08/26/21 21:00 Sodium Chloride Tab 1 Gm Tab PO BID [facility] Sumatriptan Succinate 25 mg 08/26/21 09:10 Sumatriptan Succinate 25 Mg Tab PO BID PRN Migraine Headache Intake and Output 08/25/21 08/26/21 08/26/21 22:59 06:59 14:59 Intake Total 390 Balance 390 Intake: Intake, IV Titration 390 Amount Sodium Chloride 0.9% 1, 390 000 ml @ 130 mls/hr IV . Q7H42M [facility] Rx#:[id number] Other: Voiding Method Toilet # Voids 5 Weight 53.524 kg 53.524 kg 08/26/21 05:41 08/26/21 05:41
[2021-08-26] MEDS: ALPRAZolam 0.25 MG TAB PO PRN ×2 (13:55→21:54)
[2021-08-26] MEDS: methocarbamoL 500 MG TAB PO PRN (14:33)
--- NOTE | 2021-08-26 17:22 | P.HPIM ---
History of Present Illness H&P Date: 08/26/21 Chief Complaint: Syncope Bharati Pan, is a 70 year old female who presented to [facility] emergency room with a chief complaint of syncope She was evaluated in the emergency room vital examination on presentation revealed a temperature of 97.8 pulse 93 respirations 17 blood pressure 152/89 pulse ox 99% on room air Laboratory data revealed a white blood count of 11.3 hemoglobin 13.3 platelet count 354 sodium 124 potassium 4.5 chloride 93 CO2 22 BUN 19 creatinine 0.64 coronavirus PCR was negative Testing in the emergency room revealed chest x-ray revealed no active cardiopulmonary disease, EKG revealed normal sinus rhythm normal EKG, computed tomography scan of the brain and the cervical spine revealed evidence of multilevel cervical fusion surgery without any acute abnormality. Patient was admitted to medical floor for further evaluation and treatment echocardiogram and carotid Doppler were ordered cardiology consultation was requested in regard to syncope, nephrology consultation was requested in regard to hyponatremia. Past Medical History Past Medical History: Asthma, Cancer, Fibromyalgia, GERD/Reflux, Osteoarthritis (OA), Thyroid Disorder Additional Past Medical History / Comment(s): Migraines History of Any Multi-Drug Resistant Organisms: None Reported Past Surgical History: Adenoidectomy, Bowel Resection, Cholecystectomy, Hernia Repair, Orthopedic Surgery, Tonsillectomy Additional Past Anesthesia/Blood Transfusion Reaction / Comment(s): never had a transfusion Past Psychological History: Anxiety, Depression, PTSD Additional Psychological History / Comment(s): on meds - xanax & celexa Smoking Status: Former smoker Past Alcohol Use History: Occasional Additional Past Alcohol Use History / Comment(s): drinks minimum of 2 drinks daily Past Drug Use History: None Reported - Past Family History Mother Family Medical History: Congestive Heart Failure (CHF) Father History Unknown: Yes Medications and Allergies Home Medications Medication Instructions Recorded Confirmed Type ALPRAZolam [Xanax] 0.25 mg PO Q8H PRN 09/17/16 08/25/21 History Dicyclomine [Bentyl] 20 mg PO QID PRN 09/17/16 08/25/21 History Levothyroxine Sodium [Synthroid] 100 mcg PO DAILY 09/17/16 08/25/21 History SUMAtriptan SUCCINATE [Imitrex] 25 mg PO BID PRN 09/17/16 08/25/21 History Acetaminophen/Diphenhydramine 2 tab PO HS PRN 02/09/21 08/25/21 History [Tylenol PM 500-25mg] Albuterol Nebulized [Ventolin 2.5 mg INHALATION RT-Q4H PRN 02/09/21 08/25/21 History Nebulized] Atorvastatin [Lipitor] 20 mg PO HS 02/09/21 08/25/21 History Calcium/D3/Zinc/Copper/[place] 2 tab PO DAILY 02/09/21 08/25/21 History [Citracal-D3 Maximum Plus Caplt] Meloxicam [Mobic] 15 mg PO DAILY PRN 02/09/21 08/25/21 History amLODIPine [Norvasc] 10 mg PO DAILY 02/09/21 08/25/21 History methocarbamoL [Methocarbamol] 500 mg PO QID PRN 02/09/21 08/25/21 History Cyanocobalamin (Vitamin B-12) 1,000 mcg PO DAILY 03/03/21 08/25/21 History [Vitamin B-12] Loratadine [Claritin] 10 mg PO DAILY PRN 03/03/21 08/25/21 History Sodium Chloride Tab 1 gm PO BID 30 Days #60 tablet 03/05/21 08/25/21 Rx Acetaminophen [Tylenol Extra 1,000 mg PO Q6HR PRN 06/01/21 08/25/21 History Strength] Acetaminophen/Chlorpheniramine 1 tab PO Q4H PRN 08/25/21 08/25/21 History [Coricidin Hbp Cold & Flu Tab] Allergy Injection 1 dose INJ Q7D 08/25/21 08/25/21 History Cholecalciferol [Vitamin D3 (25 50 mcg PO DAILY 08/25/21 08/25/21 History Mcg = 1000 Iu)] Esomeprazole Magnesium [NexIUM 20 mg PO DAILY PRN 08/25/21 08/25/21 History 24Hr] Fluticasone Nasal [place] [Flonase 1 spray EA NOSTRIL DAILY 08/25/21 08/25/21 History Nasal [place]] Fluticasone/Umeclidin/Vilanter 1 puff INHALATION RT-DAILY 08/25/21 08/25/21 History [Trelegy Ellipta 200-62.5-25] Allergies Allergy/AdvReac Type Severity Reaction Status Date / Time adhesive tape Allergy Severe Rash/Hives Verified 08/25/21 22:10 Physical Exam Vitals: Vital Signs Temp Pulse Pulse Pulse Resp BP BP 08/26/21 03:33 98.4 F 74 18 128/72 08/26/21 03:32 74 16 08/26/21 02:40 80 16 124/60 08/26/21 01:15 97.6 F 82 16 147/81 08/26/21 00:02 86 18 08/25/21 23:11 68 16 161/82 08/25/21 22:25 97.8 F 86 18 167/100 08/25/21 21:20 93 17 152/89 Pulse Ox 08/26/21 03:33 97 08/26/21 03:32 08/26/21 02:40 97 08/26/21 01:15 98 08/26/21 00:02 97 08/25/21 23:11 97 08/25/21 22:25 98 08/25/21 21:20 99 Intake and Output 08/25/21 08/26/21 08/26/21 22:59 06:59 14:59 Intake Total 390 Balance 390 Intake: Intake, IV Titration 390 Amount Sodium Chloride 0.9% 1, 390 000 ml @ 130 mls/hr IV . Q7H42M [facility] Rx#:[id number] Other: Voiding Method Toilet # Voids 5 Weight 53.524 kg 53.524 kg In general patient is alert and oriented x 3 in no distress HEENT head normocephalic and atraumatic Neck is supple no JVD no goiter no lymphadenopathy no carotid bruit Chest examination is clear to auscultation no crackles no wheezing Cardiac exam reveals regular heart sounds S1 and S2 no gallops no murmurs Abdomen is soft nontender no organomegaly with normal bowel sounds Extremity exam reveals no edema no cyanosis or clubbing Neurological examination reveals no gross focal deficits Results CBC & Chem 7: 08/26/21 05:41 08/26/21 05:41 Labs: Abnormal Lab Results - Last 24 Hours (Table) 08/25/21 08/25/21 08/25/21 Range/Units 21:22 21:47 21:47 WBC 11.3 H (3.8-10.6) k/uL RBC (3.80-5.40) m/uL Neutrophils # 9.0 H (1.3-7.7) k/uL Lymphocytes # (1.0-4.8) k/uL APTT 18.9 L (22.0-30.0) sec Sodium (137-145) mmol/L Chloride (98-107) mmol/L BUN (7-17) mg/dL Glucose (74-99) mg/dL POC Glucose (mg/dL) 130 H (75-99) mg/dL Osmolality (280-301) mosm/kg Calcium (8.4-10.2) mg/dL 08/25/21 08/25/21 08/26/21 Range/Units 21:47 23:13 05:41 WBC 12.1 H (3.8-10.6) k/uL RBC 3.51 L (3.80-5.40) m/uL Neutrophils # 10.2 H (1.3-7.7) k/uL Lymphocytes # 0.9 L (1.0-4.8) k/uL APTT (22.0-30.0) sec Sodium 124 L (137-145) mmol/L Chloride 93 L (98-107) mmol/L BUN 19 H (7-17) mg/dL Glucose (74-99) mg/dL POC Glucose (mg/dL) (75-99) mg/dL Osmolality 263 L (280-301) mosm/kg Calcium (8.4-10.2) mg/dL 08/26/21 Range/Units 05:41 WBC (3.8-10.6) k/uL RBC (3.80-5.40) m/uL Neutrophils # (1.3-7.7) k/uL Lymphocytes # (1.0-4.8) k/uL APTT (22.0-30.0) sec Sodium 129 L (137-145) mmol/L Chloride (98-107) mmol/L BUN 18 H (7-17) mg/dL Glucose 100 H (74-99) mg/dL POC Glucose (mg/dL) (75-99) mg/dL Osmolality (280-301) mosm/kg Calcium 8.2 L (8.4-10.2) mg/dL Thrombosis Risk Factor Assmnt - Choose All That Apply Any of the Below Risk Factors Present?: No Other Risk Factors: Yes Each Risk Factor Represents 2 Points: Age 61-74 years Other congenital or acquired thrombophilia - If yes, enter type in comment: No Thrombosis Risk Factor Assessment Total Risk Factor Score: 2 Thrombosis Risk Factor Assessment Level: Low Risk Assessment and Plan Plan: Syncope, with fall at home Hyponatremia, patient has a known history of hyponatremia, she is maintained on salt supplements, she stated that she has been taking her medications as prescribed Underlying history of hypertension Underlying history of degenerative disc disease Underlying history of hyperlipidemia Underlying history of migraine headache At this time patient is admitted to medical floor with telemetry Home medications reviewed and reordered Echocardiogram and carotid Doppler were ordered She was started on IV normal saline Cardiology consultation and nephrology consultation were requested Will follow closely
[2021-08-26] MEDS: SODIUM CHLORIDE TAB 1 GM TAB PO SCH (20:01)
[2021-08-26] MEDS: ATORVASTATIN 20 MG TAB PO SCH (20:01)
--- NOTE | 2021-08-26 20:21 | CONS ---
CONSULTATION REASON FOR CONSULTATION: Hyponatremia. HISTORY OF PRESENT ILLNESS: Patient is a 70-year-old female who has a previous history of hyponatremia and has been maintained on sodium chloride tabs for the past 6 months. Patient states that she was at home, she felt weak and suddenly passed out. Her blood pressure was not noticed to be significantly low at the time of admission. However, I do not have orthostatics. Patient stated that she also had numbness around the mouth and her sodium was noted to be 124. She states that she did not miss her sodium chloride tabs, and occasionally she has also noticed swelling in her lower extremities. At this time patient is maintained on saline and her sodium has improved to 129. PAST MEDICAL HISTORY: Significant for asthma, fibromyalgia, gastroesophageal reflux disease, osteoarthritis, hypothyroidism, migraines, hyponatremia. PAST SURGICAL HISTORY: Appendectomy, bowel resection, cholecystectomy, hernia repair, tonsillectomy. SOCIAL HISTORY: Patient is a former smoker. No history of drug abuse or alcohol abuse. MEDICATIONS: Medications at home prior to admission included Xanax, Bentyl, Synthroid, Lipitor, Mobic, Norvasc, Claritin, sodium chloride tabs, Nexium, Trelegy inhaler. ALLERGIES: ALLERGIES include TAPE. REVIEW OF SYSTEMS: As per HPI. Other systems negative. PHYSICAL EXAMINATION: Patient is comfortable, awake, not in any acute distress. Blood pressure 128/72, heart rate 74 per minute. She is afebrile. EXAMINATION OF THE HEART: S1 and S2. EXAMINATION OF LUNGS: Bilateral breath sounds are heard. Abdomen is soft, non-tender. Examination of lower extremities shows no evidence of edema. BOLT CUTTER EXAM: Grossly intact. LABS: Sodium 129, potassium 4.6, chloride 101, BUN 18, creatinine 0.7, hemoglobin 12.1. UA is completely benign. ASSESSMENT: 1. Hyponatremia which is hypovolemic, improved with IV saline. Continue with the sodium chloride tabs as well. Urine osmolality was not high. It was 339. Patient does have a previous history of hyponatremia which is treated with sodium chloride tabs, and we will continue with this. It appears to be hypovolemic. I will check a random cortisol level, rule out any underlying adrenal insufficiency. 2. Syncope. Rule out orthostatic hypotension. Currently patient has received IV fluids. 3. History of hypertension, maintained on Norvasc. Blood pressure controlled. PLAN: Check orthostatics. Continue with saline. Check random cortisol level. Thank you for this consultation. Will continue to follow the patient with you during her hospitalization. ROB / HILARY: [id number] /
[2021-08-26] MEDS: SYMBICORT 80-4.5 MCG INHALER INHALATION SCH (20:29)
[2021-08-27] MEDS: LEVOTHYROXINE 100 MCG TAB PO SCH (05:48)
[2021-08-27] MEDS: SODIUM CHLORIDE 0.9% 1,000 ML IV SCH ×3 (05:48→18:05)
[2021-08-27] MEDS: SYMBICORT 80-4.5 MCG INHALER INHALATION SCH ×2 (08:47→19:43)
[2021-08-27] MEDS: IPRATROPIUM 0.5 MG/2.5 ML NEBU INHALATION SCH ×4 (08:47→19:43)
[2021-08-27] MEDS: CHOLECALCIFEROL 25 MCG (1000 IU) TABLET PO SCH (08:55)
[2021-08-27] MEDS: CALCIUM CARB-VIT D 500 MG-5 MCG TAB PO SCH (08:55)
[2021-08-27] MEDS: FLUTICASONE 50MCG/SPRAY NASAL 16GM EA NOSTRIL SCH (08:55)
[2021-08-27] MEDS: CYANOCOBALAMIN 500 MCG TAB PO SCH (08:56)
[2021-08-27] MEDS: SODIUM CHLORIDE TAB 1 GM TAB PO SCH ×2 (08:56→21:30)
[2021-08-27] MEDS: amLODIPine 10 MG TAB PO SCH (08:56)
[2021-08-27] MEDS: ACETAMINOPHEN TAB 325 MG TAB PO PRN ×2 (09:05→22:29)
[2021-08-27 09:27] LABS: African American GFR (CKD) >90 (>60 ml/min/1.73 sqM); Anion Gap 7 mmol/L; Blood Urea Nitrogen 19 mg/dL (7-17); Calcium 8.9 mg/dL (8.4-10.2); Carbon Dioxide 23 mmol/L (22-30); Chloride 101 mmol/L (98-107); Glucose 96 mg/dL (74-99); Non-African American GFR(CKD) 88 (>60 ml/min/1.73 sqM); Potassium 4.2 mmol/L (3.5-5.1); Sodium 131 mmol/L (137-145)
--- NOTE | 2021-08-27 10:23 | P.PN ---
Subjective Progress Note Date: 08/27/21 HISTORY OF PRESENT ILLNESS: This is a 70 year old female with a past medical history significant for hypertension, hyponatremia, and daily alcohol use. 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 We have been asked to see the patient in consultation for syncope. Patient examined at the bedside. Patient states yesterday she was in her kitchen and was going to make something to eat. She reports feeling dizzy and lightheaded and then she passed out. Her was home and witnessed this. She had have a loss of consciousness. Patient denies having any previous episodes of syncope. However she does report having similar symptoms in the past when she had low sodium levels. She denies chest pain or pressure. Denies shortness of breath. Currently denies dizziness or lightheadedness. She denies palpitations. Vital signs are stable. EKG reveals sinus mechanism with no signs of acute ischemia Chest xray no active cardiopulmonary disease Laboratory data: WBC 12.1. Hemoglobin 12.1. Platelet count 356. Sodium 124. Repeat 129. Potassium 4.6. BUN 18. Creatinine 0.72. Current home cardiac medications include atorvastatin 20 mg at night and amlodipine 10 mg daily Most recent echocardiogram obtained revealed ejection fraction 55%, mild mitral regurgitation, mild tricuspid regurgitation Carotid doppler: negative for significant stenosis bilaterally 08/27/2021 Patient examined this morning at the bedside. Patient denies chest pain or pr essure. Denies shortness of breath. Denies dizziness or lightheadedness. No further episodes of syncope. Sodium 131. Urine osmolality 266. Random urine sodium 103. Cortisol 1.0 PHYSICAL EXAM: VITAL SIGNS: Reviewed. GENERAL: Well-developed in no acute distress. HEENT: Head is normocephalic. Pupils are equal, round. Sclerae anicteric. Mucous membranes of the mouth are moist. Neck supple. No JVD or thyromegaly LUNGS: Respirations even and unlabored. Lungs essentially clear to auscultation bilaterally. HEART: Regular rate and rhythm. S1 and S2 heard. ABDOMEN: Soft. Nondistended. Nontender. EXTREMITIES: Normal range of motion. No clubbing or cyanosis. Peripheral pulses intact. No lower extremity edema NEUROLOGIC: Awake and alert. Oriented x 3. ASSESSMENT: Syncope Hyponatremia Hypertension Hyperlipidemia Daily alcohol use PLAN: Continue current cardiac medications Patient is currently stable from a cardiac standpoint She may be discharged home today and follow-up on an outpatient basis. Nurse practitioner note has been reviewed by physician. Signing provider agrees with the documented findings, assessment, and plan of care. Objective - Vital Signs Vital signs: Vital Signs Temp 98 F 08/27/21 05:00 Pulse 80 08/27/21 09:05 Resp 18 08/27/21 05:00 BP 145/81 08/27/21 05:00 Pulse Ox 99 08/27/21 05:00 Intake & Output 08/26/21 08/27/21 08/27/21 18:59 06:59 18:59 Intake Total 1560 Balance 1560 Intake: Intake, IV Titration 1560 Amount Sodium Chloride 0.9% 1, 1560 000 ml @ 130 mls/hr IV . Q7H42M [facility] Rx#:[id number] Other: # Voids 6 4 - Labs CBC & Chem 7: 08/26/21 05:41 08/27/21 05:08 Labs: Abnormal Lab Results - Last 24 Hours (Table) 08/27/21 Range/Units 05:08 Sodium 131 L (137-145) mmol/L BUN 19 H (7-17) mg/dL
--- NOTE | 2021-08-27 10:51 | P.DS ---
Providers Date of admission: 08/25/21 23:38 Expected date of discharge: 08/27/21 Attending physician: Justen Kunz Consults: 08/26/21 09:13 Consult Physician Routine Consulting Provider: Nelsy Lobo Consult Reason/Comments: syncope Do you want consulting provider notified?: Yes Consult Physician Routine Consulting Provider: Birdie Dumont Consult Reason/Comments: hyponatremia Do you want consulting provider notified?: Yes Primary care physician: Opal Mcghee Hospital Course: Discharge diagnosis Syncope, with fall at home Hyponatremia, patient has a known history of hyponatremia, she is maintained on salt supplements, she stated that she has been taking her medications as prescribed Underlying history of hypertension Underlying history of degenerative disc disease Underlying history of hyperlipidemia Underlying history of migraine headache 2-D echo completed showing an EF of greater than 55% Carotid Doppler completed negative Patient cleared for discharge from cardiology services Sodium improving to 131 patient cleared for discharge from nephrology services Hospital course Bharati Pan, is a 70 year old female who presented to [facility] emergency room with a chief complaint of syncope She was evaluated in the emergency room vital examination on presentation revealed a temperature of 97.8 pulse 93 respirations 17 blood pressure 152/89 pulse ox 99% on room air Laboratory data revealed a white blood count of 11.3 hemoglobin 13.3 platelet count 354 sodium 124 potassium 4.5 chloride 93 CO2 22 BUN 19 creatinine 0.64 coronavirus PCR was negative Testing in the emergency room revealed chest x-ray revealed no active cardiopulmonary disease, EKG revealed normal sinus rhythm normal EKG, computed tomography scan of the brain and the cervical spine revealed evidence of multilevel cervical fusion surgery without any acute abnormality. Patient was admitted to medical floor for further evaluation and treatment echocardiogram and carotid Doppler were ordered cardiology consultation was requested in regard to syncope, nephrology consultation was requested in regard to hyponatremia. On 08/27/2021 patient alert and oriented 3. Patient expresses that she is very eager to go home. Patient denies chest pain or shortness breath. Patient denies nausea vomiting or diarrhea. Patient has been cleared for discharge from cardiology and nephrology services sodium improving to [address] Dumont recommend follow-up with BMP in 2-3 days and then every 2 weeks to monitor sodium closely. Patient to follow-up with PCP for further management. Patient Condition at Discharge: Stable Plan - Discharge Summary Discharge Rx Participant: Yes New Discharge Prescriptions: Continue RX: ALPRAZolam [Xanax] 0.25 mg PO Q8H PRN PRN Reason: Anxiety RX: Dicyclomine [Bentyl] 20 mg PO QID PRN PRN Reason: IBS RX: SUMAtriptan SUCCINATE [Imitrex] 25 mg PO BID PRN PRN Reason: Migraine Headache RX: Levothyroxine Sodium [Synthroid] 100 mcg PO DAILY RX: methocarbamoL [Methocarbamol] 500 mg PO QID PRN PRN Reason: Spasms RX: Cyanocobalamin (Vitamin B-12) [Vitamin B-12] 1,000 mcg PO DAILY RX: Sodium Chloride Tab 1 gm PO BID 30 Days #60 tablet RX: Acetaminophen/Chlorpheniramine [Coricidin Hbp Cold-Flu Tablet] 1 tab PO Q4H PRN PRN Reason: Cold Symptoms RX: Esomeprazole Magnesium [NexIUM 24Hr] 20 mg PO DAILY PRN PRN Reason: ACID REFLUX RX: amLODIPine [Norvasc] 10 mg PO DAILY RX: Calcium/D3/Zinc/Copper/Salma [Citracal-D3 Maximum Plus Caplt] 2 tab PO DAILY RX: Acetaminophen/Diphenhydramine [Tylenol PM 500-25mg] 2 tab PO HS PRN PRN Reason: SLEEP RX: Meloxicam [Mobic] 15 mg PO DAILY PRN PRN Reason: Pain RX: Atorvastatin [Lipitor] 20 mg PO HS RX: Albuterol Nebulized [Ventolin Nebulized] 2.5 mg INHALATION RT-Q4H PRN PRN Reason: difficulty breathing RX: Loratadine [Claritin] 10 mg PO DAILY PRN PRN Reason: Allergy Symptoms RX: Acetaminophen [Tylenol Extra Strength] 1,000 mg PO Q6HR PRN PRN Reason: Mild To Moderate Pain RX: Fluticasone Nasal [place] [Flonase Nasal [place]] 1 spray EA NOSTRIL DAILY RX: Cholecalciferol [Vitamin D3 (25 Mcg = 1000 Iu)] 50 mcg PO DAILY RX: Fluticasone/Umeclidin/Vilanter [Trelegy Ellipta 200-62.5-25] 1 puff INHALATION RT-DAILY Allergy Injection 1 dose INJ Q7D Discharge Medication List RX: ALPRAZolam [Xanax] 0.25 mg PO Q8H PRN 09/17/16 [History] RX: Dicyclomine [Bentyl] 20 mg PO QID PRN 09/17/16 [History] RX: Levothyroxine Sodium [Synthroid] 100 mcg PO DAILY 09/17/16 [History] RX: SUMAtriptan SUCCINATE [Imitrex] 25 mg PO BID PRN 09/17/16 [History] RX: Acetaminophen/Diphenhydramine [Tylenol PM 500-25mg] 2 tab PO HS PRN 02/09/21 [History] RX: Albuterol Nebulized [Ventolin Nebulized] 2.5 mg INHALATION RT-Q4H PRN 02/09/21 [History] RX: Atorvastatin [Lipitor] 20 mg PO HS 02/09/21 [History] RX: Calcium/D3/Zinc/Copper/Salma [Citracal-D3 Maximum Plus Caplt] 2 tab PO DAILY 02/09/21 [History] RX: Meloxicam [Mobic] 15 mg PO DAILY PRN 02/09/21 [History] RX: amLODIPine [Norvasc] 10 mg PO DAILY 02/09/21 [History] RX: methocarbamoL [Methocarbamol] 500 mg PO QID PRN 02/09/21 [History] RX: Cyanocobalamin (Vitamin B-12) [Vitamin B-12] 1,000 mcg PO DAILY 03/03/21 [History] RX: Loratadine [Claritin] 10 mg PO DAILY PRN 03/03/21 [History] RX: Sodium Chloride Tab 1 gm PO BID 30 Days #60 tablet 03/05/21 [Rx] RX: Acetaminophen [Tylenol Extra Strength] 1,000 mg PO Q6HR PRN 06/01/21 [History] Allergy Injection 1 dose INJ Q7D 08/25/21 [History] RX: Acetaminophen/Chlorpheniramine [Coricidin Hbp Cold-Flu Tablet] 1 tab PO Q4H PRN 08/25/21 [History] RX: Cholecalciferol [Vitamin D3 (25 Mcg = 1000 Iu)] 50 mcg PO DAILY 08/25/21 [History] RX: Esomeprazole Magnesium [NexIUM 24Hr] 20 mg PO DAILY PRN 08/25/21 [History] RX: Fluticasone Nasal [place] [Flonase Nasal [place]] 1 spray EA NOSTRIL DAILY 08/25/21 [History] RX: Fluticasone/Umeclidin/Vilanter [Trelegy Ellipta 200-62.5-25] 1 puff INHALATION RT-DAILY 08/25/21 [History] Follow up Appointment(s)/Referral(s): Opal Mcghee MD [Primary Care Provider] - 1-2 days
[2021-08-27] MEDS: ALPRAZolam 0.25 MG TAB PO PRN ×2 (12:21→22:29)
[2021-08-27] MEDS: methocarbamoL 500 MG TAB PO PRN (13:00)
[2021-08-27 13:40] LABS: African American GFR (CKD) >90 (>60 ml/min/1.73 sqM); Anion Gap 8 mmol/L; Blood Urea Nitrogen 20 mg/dL (7-17); Calcium 9.6 mg/dL (8.4-10.2); Carbon Dioxide 21 mmol/L (22-30); Chloride 100 mmol/L (98-107); Glucose 103 mg/dL (74-99); Non-African American GFR(CKD) 90 (>60 ml/min/1.73 sqM); Sodium 129 mmol/L (137-145)
--- NOTE | 2021-08-27 17:19 | PN ---
PROGRESS NOTE Patient is seen for followup for hyponatremia which is hypovolemic, currently improved. Patient's serum sodium had improved to 131 today, however, repeat sodium later on was at 129. Patient is maintained on saline. She is also taking sodium chloride tabs one b.i.d. EXAMINATION: On examination today, blood pressure 133/75, heart rate 80 per minute. She is afebrile. Examination shows no evidence of edema bilateral lower extremities. LAB: Show sodium 131, potassium 4.2. Repeat sodium was 129. ASSESSMENT: Hypovolemic hyponatremia, maintained on sodium chloride tabs, which we can continue. The patient is advised that she may need to have her serum sodium monitored every two weeks. Consider increasing the sodium chloride tabs to t.i.d. if repeat sodium as outpatient is lower. Minimize oral fluid intake and increase oral protein intake. MMODL / IJN: [id number] /
[2021-08-27] MEDS: ATORVASTATIN 20 MG TAB PO SCH (20:59)
[2021-08-28] MEDS: SODIUM CHLORIDE 0.9% 1,000 ML IV SCH ×2 (01:23→08:27)
[2021-08-28] MEDS: ACETAMINOPHEN TAB 325 MG TAB PO PRN ×4 (04:57→22:15)
[2021-08-28] MEDS: LEVOTHYROXINE 100 MCG TAB PO SCH (04:58)
[2021-08-28] MEDS: SYMBICORT 80-4.5 MCG INHALER INHALATION SCH ×2 (08:27→19:28)
[2021-08-28] MEDS: IPRATROPIUM 0.5 MG/2.5 ML NEBU INHALATION SCH ×4 (08:27→19:28)
[2021-08-28] MEDS: CYANOCOBALAMIN 500 MCG TAB PO SCH (09:34)
[2021-08-28] MEDS: CALCIUM CARB-VIT D 500 MG-5 MCG TAB PO SCH (09:34)
[2021-08-28] MEDS: amLODIPine 10 MG TAB PO SCH (09:34)
[2021-08-28] MEDS: CHOLECALCIFEROL 25 MCG (1000 IU) TABLET PO SCH (09:34)
[2021-08-28] MEDS: FLUTICASONE 50MCG/SPRAY NASAL 16GM EA NOSTRIL SCH (09:35)
[2021-08-28] MEDS: SODIUM CHLORIDE TAB 1 GM TAB PO SCH ×2 (09:35→20:24)
[2021-08-28 10:11] LABS: African American GFR (CKD) 104.8 (60.0-200.0); Anion Gap 10.7 mmol/L (10.00-18.00); BUN/Creat Ratio 31.33 Ratio (12.00-20.00); Blood Urea Nitrogen 18.8 mg/dL (9.0-27.0); Calcium 8.8 mg/dL (8.7-10.3); Carbon Dioxide 18.3 mmol/L (20.0-27.5); Non-African American GFR(CKD) 90.4 (60.0-200.0); Potassium 4.3 mmol/L (3.5-5.5)
[2021-08-28] MEDS: methocarbamoL 500 MG TAB PO PRN (10:37)
--- NOTE | 2021-08-28 10:57 | P.PN ---
Subjective Patient is seen in follow-up for hyponatremia. Sodium level stable at 131 today. She is on IV fluids. Oral intake fair. No vomiting or diarrhea. Vital signs are stable. General: The patient appeared well nourished and normally developed. HEENT: Head exam is unremarkable. LUNGS: Breath sounds decreased. HEART: Rate and Rhythm are regular. ABDOMEN: Soft, no distention. EXTREMITITES: No edema. Objective - Vital Signs Vital signs: Vital Signs Temp 98.2 F 08/28/21 09:25 Pulse 70 08/28/21 09:25 Resp 18 08/28/21 09:25 BP 135/68 08/28/21 09:25 Pulse Ox 96 08/28/21 09:25 Intake & Output 08/27/21 08/28/21 08/28/21 18:59 06:59 18:59 Intake Total 1000 590 Balance 1000 590 Intake: Intake, IV Titration 1000 Amount Sodium Chloride 0.9% 1, 1000 000 ml @ 130 mls/hr IV . Q7H42M ASHIA Rx#:[id number] Oral 590 Other: Voiding Method Toilet Toilet # Voids 5 - Labs CBC & Chem 7: 08/26/21 05:41 08/28/21 04:07 Labs: Abnormal Lab Results - Last 24 Hours (Table) 08/27/21 08/28/21 Range/Units 12:56 04:07 Sodium 129 L 131 L (137-145) mmol/L Carbon Dioxide 21 L 18.3 L (22-30) mmol/L BUN 20 H (7-17) mg/dL BUN/Creatinine Ratio 31.33 H (12.00-20.00) Ratio Glucose 103 H (74-99) mg/dL Assessment and Plan Plan: Assessment: 1. Hypovolemic hyponatremia improved with IV hydration. Also on sodium chloride tabs. Concern for adrenal insufficiency as cortisol level is low at 1. ACTH also low. Urine osmolality 266 and urine sodium 103. 2. Benign hypertension. Stable. Plan: Hep-Lock IV fluids. Maintain sodium chloride tablets for now Check cosyntropin stimulation test. Add Cortef after the test completed. Patient will follow-up with endocrinology outpatient. Repeat BMP and magnesium level 2-3 days postdischarge. Follow up outpatient in 1 week. Patient will need her sodium level monitored closely outpatient.
[2021-08-28] MEDS ORDERED: COSYNTROPIN 0.25 MG VIAL IVP ONE (11:30)
[2021-08-28] MEDS: ALPRAZolam 0.25 MG TAB PO PRN ×2 (13:47→22:15)
[2021-08-28 20:21] VITALS: RESP 20
[2021-08-28] MEDS: ATORVASTATIN 20 MG TAB PO SCH (20:23)
[2021-08-28] MEDS: HYDROCORTISONE 10 MG TAB PO SCH (20:23)
[2021-08-29 05:15] VITALS: BP 134/84; TEMP 98
[2021-08-29] MEDS: ACETAMINOPHEN TAB 325 MG TAB PO PRN (05:28)
[2021-08-29] MEDS: LEVOTHYROXINE 100 MCG TAB PO SCH (05:28)
[2021-08-29 05:34] LABS: Basophils % (A) 0 %; Eosinophils # (A) 0.1 k/uL (0-0.7); Eosinophils % (A) 1 %; HCT 37.8 % (34.0-46.0); HGB 13.1 gm/dL (11.4-16.0); Lymphocytes # (A) 1.3 k/uL (1.0-4.8); Lymphocytes % (A) 12 %; MCH 34.3 pg (25.0-35.0); MCHC 34.7 g/dL (31.0-37.0); MCV 98.8 fL (80.0-100.0); Mean Platelet Volume 7.3; Monocytes # (A) 0.5 k/uL (0-1.0); Monocytes % (A) 4 %; Neutrophils # (A) 8.6 k/uL (1.3-7.7); Neutrophils % (A) 82 %; Platelet Count 344 k/uL (150-450); RBC 3.82 m/uL (3.80-5.40); RDW 12.1 % (11.5-15.5); WBC 10.6 k/uL (3.8-10.6)
[2021-08-29] MEDS: IPRATROPIUM 0.5 MG/2.5 ML NEBU INHALATION SCH ×2 (08:00→11:29)
[2021-08-29] MEDS: SYMBICORT 80-4.5 MCG INHALER INHALATION SCH (08:00)
[2021-08-29] MEDS: CHOLECALCIFEROL 25 MCG (1000 IU) TABLET PO SCH (09:22)
[2021-08-29] MEDS: amLODIPine 10 MG TAB PO SCH (09:22)
[2021-08-29] MEDS: CYANOCOBALAMIN 500 MCG TAB PO SCH (09:22)
[2021-08-29] MEDS: CALCIUM CARB-VIT D 500 MG-5 MCG TAB PO SCH (09:22)
[2021-08-29] MEDS: SODIUM CHLORIDE TAB 1 GM TAB PO SCH (09:23)
[2021-08-29] MEDS: HYDROCORTISONE 10 MG TAB PO SCH (09:23)
[2021-08-29] MEDS: FLUTICASONE 50MCG/SPRAY NASAL 16GM EA NOSTRIL SCH (09:23)
--- NOTE | 2021-08-29 09:26 | P.PN ---
Subjective Patient is seen in follow-up for hyponatremia. Sodium level stable at 131 yesterday. IV fluids stopped. Oral intake good. Oral intake fair. No vomiting or diarrhea. Vital signs are stable. General: The patient appeared well nourished and normally developed. HEENT: Head exam is unremarkable. LUNGS: Breath sounds decreased. HEART: Rate and Rhythm are regular. ABDOMEN: Soft, no distention. EXTREMITITES: No edema. Objective - Vital Signs Vital signs: Vital Signs Temp 98 F 08/29/21 04:35 Pulse 73 08/29/21 04:35 Resp 20 08/29/21 04:35 BP 134/84 08/29/21 04:35 Pulse Ox 92 L 08/29/21 04:35 Intake & Output 08/28/21 08/29/21 08/29/21 18:59 06:59 18:59 Intake Total 240 Balance 240 Intake: Oral 240 Other: Voiding Method Toilet Toilet # Voids 3 1 - Labs CBC & Chem 7: 08/29/21 04:16 08/28/21 04:07 Labs: Abnormal Lab Results - Last 24 Hours (Table) 08/28/21 08/29/21 Range/Units 04:07 04:16 Neutrophils # 8.6 H (1.3-7.7) k/uL Sodium 131 L (135-145) mmol/L Carbon Dioxide 18.3 L (20.0-27.5) mmol/L BUN/Creatinine Ratio 31.33 H (12.00-20.00) Ratio Assessment and Plan Plan: Assessment: 1. Hypovolemic hyponatremia improved with IV hydration. Also on sodium chloride tabs. Concern for adrenal insufficiency as cortisol level is low at 1. ACTH also low. Cortisol level did improve post cosyntropin but still on the lower side at 8. Urine osmolality 266 and urine sodium 103. 2. Benign hypertension. Stable. Plan: Maintain sodium chloride tablets for now Maintain Cortef. Patient will follow-up with endocrinology outpatient. Repeat BMP and magnesium level 2-3 days postdischarge. Follow up outpatient in 1 week. Patient will need her sodium level monitored closely outpatient. Morning labs pending
[2021-08-29 10:38] VITALS: PULSE 80
--- NOTE | 2021-08-29 11:08 | P.DS ---
Providers Date of admission: 08/25/21 23:38 Expected date of discharge: 08/29/21 Attending physician: Justen Kunz Consults: 08/26/21 09:13 Consult Physician Routine Consulting Provider: Birdie Dumont Consult Reason/Comments: hyponatremia Do you want consulting provider notified?: Yes Primary care physician: Opal Mcghee [place] Hospital Course: Discharge diagnosis Syncope, with fall at home Hyponatremia, patient has a known history of hyponatremia, she is maintained on salt supplements, she stated that she has been taking her medications as prescribed Underlying history of hypertension Underlying history of degenerative disc disease Underlying history of hyperlipidemia Underlying history of migraine headache Concerns for adrenal insufficiency as course level is low at 1 patient started on Solu-Cortef per nephrology services recommend follow-up with endocrinology services outpatient 2-D echo completed showing an EF of greater than 55% Carotid Doppler completed negative Patient cleared for discharge from cardiology services Hospital course Bharati Pan, is a 70 year old female who presented to [facility] emergency room with a chief complaint of syncope She was evaluated in the emergency room vital examination on presentation revealed a temperature of 97.8 pulse 93 respirations 17 blood pressure 152/89 pulse ox 99% on room air Laboratory data revealed a white blood count of 11.3 hemoglobin 13.3 platelet count 354 sodium 124 potassium 4.5 chloride 93 CO2 22 BUN 19 creatinine 0.64 coronavirus PCR was negative Testing in the emergency room revealed chest x-ray revealed no active cardiopulmonary disease, EKG revealed normal sinus rhythm normal EKG, computed tomography scan of the brain and the cervical spine revealed evidence of multilevel cervical fusion surgery without any acute abnormality. Patient was admitted to medical floor for further evaluation and treatment echocardiogram and carotid Doppler were ordered cardiology consultation was requested in regard to syncope, nephrology consultation was requested in regard to hyponatremia. On 08/27/2021 patient alert and oriented 3. Patient expresses that she is very eager to go home. Patient denies chest pain or shortness breath. Patient denies nausea vomiting or diarrhea. Patient has been cleared for discharge from cardiology and nephrology services sodium improving to [address] Dumont recommend follow-up with BMP in 2-3 days and then every 2 weeks to monitor sodium closely. Patient to follow-up with PCP for further management. On 08/29/2021 patient is alert and oriented 3. Patient has been worked up for possible adrenal insufficiency with low course level at 1. Patient was started on Cortef and will continue Cortef upon discharge. Patient's for follow-up with endocrinology services outpatient along with close monitoring of sodium levels prescription given to check BMP and magnesium levels within 2-3 days. Patient also to follow-up with nephrology services patient denies any chest pain or shortness of breath. Patient denies nausea vomiting or diarrhea. Patient denies any urinary burning or frequency Patient Condition at Discharge: Stable Plan - Discharge Summary Discharge Rx Participant: Yes New Discharge Prescriptions: New Hydrocortisone [Cortef] 5 mg PO BID 30 Days #60 tab Continue ALPRAZolam [Xanax] 0.25 mg PO Q8H PRN PRN Reason: Anxiety Dicyclomine [Bentyl] 20 mg PO QID PRN PRN Reason: IBS SUMAtriptan SUCCINATE [Imitrex] 25 mg PO BID PRN PRN Reason: Migraine Headache Levothyroxine Sodium [Synthroid] 100 mcg PO DAILY methocarbamoL [Methocarbamol] 500 mg PO QID PRN PRN Reason: Spasms Cyanocobalamin (Vitamin B-12) [Vitamin B-12] 1,000 mcg PO DAILY Sodium Chloride Tab 1 gm PO BID 30 Days #60 tablet Acetaminophen/Chlorpheniramine [Coricidin Hbp Cold-Flu Tablet] 1 tab PO Q4H PRN PRN Reason: Cold Symptoms Esomeprazole Magnesium [NexIUM 24Hr] 20 mg PO DAILY PRN PRN Reason: ACID REFLUX amLODIPine [Norvasc] 10 mg PO DAILY Calcium/D3/Zinc/Copper/Salma [Citracal-D3 Maximum Plus Caplt] 2 tab PO DAILY Acetaminophen/Diphenhydramine [Tylenol PM 500-25mg] 2 tab PO HS PRN PRN Reason: SLEEP Meloxicam [Mobic] 15 mg PO DAILY PRN PRN Reason: Pain Atorvastatin [Lipitor] 20 mg PO HS Albuterol Nebulized [Ventolin Nebulized] 2.5 mg INHALATION RT-Q4H PRN PRN Reason: difficulty breathing Loratadine [Claritin] 10 mg PO DAILY PRN PRN Reason: Allergy Symptoms Acetaminophen [Tylenol Extra Strength] 1,000 mg PO Q6HR PRN PRN Reason: Mild To Moderate Pain Fluticasone Nasal [place] [Flonase Nasal [place]] 1 spray EA NOSTRIL DAILY Cholecalciferol [Vitamin D3 (25 Mcg = 1000 Iu)] 50 mcg PO DAILY Fluticasone/Umeclidin/Vilanter [Trelegy Ellipta 200-62.5-25] 1 puff INHALATION RT-DAILY Allergy Injection 1 dose INJ Q7D Discharge Medication List ALPRAZolam [Xanax] 0.25 mg PO Q8H PRN 09/17/16 [History] Dicyclomine [Bentyl] 20 mg PO QID PRN 09/17/16 [History] Levothyroxine Sodium [Synthroid] 100 mcg PO DAILY 09/17/16 [History] SUMAtriptan SUCCINATE [Imitrex] 25 mg PO BID PRN 09/17/16 [History] Acetaminophen/Diphenhydramine [Tylenol PM 500-25mg] 2 tab PO HS PRN 02/09/21 [History] Albuterol Nebulized [Ventolin Nebulized] 2.5 mg INHALATION RT-Q4H PRN 02/09/21 [History] Atorvastatin [Lipitor] 20 mg PO HS 02/09/21 [History] Calcium/D3/Zinc/Copper/[place] [Citracal-D3 Maximum Plus Caplt] 2 tab PO DAILY 02/09/21 [History] Meloxicam [Mobic] 15 mg PO DAILY PRN 02/09/21 [History] amLODIPine [Norvasc] 10 mg PO DAILY 02/09/21 [History] methocarbamoL [Methocarbamol] 500 mg PO QID PRN 02/09/21 [History] Cyanocobalamin (Vitamin B-12) [Vitamin B-12] 1,000 mcg PO DAILY 03/03/21 [History] Loratadine [Claritin] 10 mg PO DAILY PRN 03/03/21 [History] Sodium Chloride Tab 1 gm PO BID 30 Days #60 tablet 03/05/21 [Rx] Acetaminophen [Tylenol Extra Strength] 1,000 mg PO Q6HR PRN 06/01/21 [History] Acetaminophen/Chlorpheniramine [Coricidin Hbp Cold-Flu Tablet] 1 tab PO Q4H PRN 08/25/21 [History] Allergy Injection 1 dose INJ Q7D 08/25/21 [History] Cholecalciferol [Vitamin D3 (25 Mcg = 1000 Iu)] 50 mcg PO DAILY 08/25/21 [History] Esomeprazole Magnesium [NexIUM 24Hr] 20 mg PO DAILY PRN 08/25/21 [History] Fluticasone Nasal [place] [Flonase Nasal [place]] 1 spray EA NOSTRIL DAILY 08/25/21 [History] Fluticasone/Umeclidin/Vilanter [Trelegy Ellipta 200-62.5-25] 1 puff INHALATION RT-DAILY 08/25/21 [History] Hydrocortisone [Cortef] 5 mg PO BID 30 Days #60 tab 08/29/21 [Rx] Follow up Appointment(s)/Referral(s): Opal Mcghee MD [Primary Care Provider] - 08/30/21 11:15 am Oliverio Alfonso DO [STAFF PHYSICIAN] - 1 Week Ambulatory/Diagnostic Orders: Comprehensive Metabolic Panel [LAB.AMB] Time Frame: 2 Days, Facility: [facility] Location: [employer] [address] [employer] Activity/Diet/Wound Care/Special Instructions: Patient to follow-up with endocrinology services outpatient Prescription to check BMP and magnesium level given to patient patient understands she needs to get level checked within 2-3 days of discharge Discharge Disposition: HOME SELF-CARE
[2021-08-29 11:09] LABS: African American GFR (CKD) 99.6 (60.0-200.0); Albumin 4.1 g/dL (3.8-4.9); Albumin/Globulin Ratio 2.41 (1.60-3.17); Anion Gap 12.6 mmol/L (10.00-18.00); Blood Urea Nitrogen 24.5 mg/dL (9.0-27.0); Calcium 9.3 mg/dL (8.7-10.3); Carbon Dioxide 19.4 mmol/L (20.0-27.5); Globulin 1.7 g/dL (1.6-3.3); Potassium 4.2 mmol/L (3.5-5.5); Total Bilirubin 0.5 mg/dL (0.30-1.20); Total Protein 5.8 g/dL (6.2-8.2)
== END 2021-08-29 13:09 | disposition home or self-care (01) | DRG 641 ==
LOC: EC 21:09 → 5NMEDONC 23:17 → OBSVTOIN 23:38 → 5NMEDONC 08-26 00:18
PROVIDERS: ADMIT Internal Medicine; ATTEND Internal Medicine
DX: E87.1 Hypo-osmolality and hyponatremia (principal); E27.40 Unspecified adrenocortical insufficiency; S06.0X9A Concussion with loss of consciousness of unspecified duration, initial encounter; Z20.822 Contact with and (suspected) exposure to COVID-19; E86.1 Hypovolemia; I10 Essential (primary) hypertension; E78.5 Hyperlipidemia, unspecified; M79.7 Fibromyalgia; E03.9 Hypothyroidism, unspecified; J45.909 Unspecified asthma, uncomplicated; F32.A Depression, unspecified; F43.10 Post-traumatic stress disorder, unspecified; K21.9 Gastro-esophageal reflux disease without esophagitis; M19.90 Unspecified osteoarthritis, unspecified site; I08.1 Rheumatic disorders of both mitral and tricuspid valves; G43.909 Migraine, unspecified, not intractable, without status migrainosus; Z79.890 Hormone replacement therapy; Z79.899 Other long term (current) drug therapy; Z72.89 Other problems related to lifestyle; Z90.89 Acquired absence of other organs; Z90.49 Acquired absence of other specified parts of digestive tract; Z87.19 Personal history of other diseases of the digestive system; Z87.891 Personal history of nicotine dependence; Z98.1 Arthrodesis status; Z98.890 Other specified postprocedural states; W19.XXXA Unspecified fall, initial encounter; Y92.000 Kitchen of unspecified non-institutional (private) residence as the place of occurrence of the external cause; Z91.048 Other nonmedicinal substance allergy status; Z82.49 Family history of ischemic heart disease and other diseases of the circulatory system
CPT/HCPCS: 36415; 70450; 71046; 72125; 72220; 80048; 80053; 81003; 82024; 82533; 83735; 83930; 83935; 84300; 84484; 85025; 85379; 85610; 85730; 87635; 93005; 93306; 93880; 94640; 96374; 96375; 99285

== ENCOUNTER → 2022-02-15 | Outpatient (CLI) | payer MEDICARE ==
[2022-02-15 15:29] LABS: African American GFR (CKD) 73.5 (60.0-200.0); Albumin 4.6 g/dL (3.8-4.9); Albumin/Globulin Ratio 2.3 (1.60-3.17); Anion Gap 10.6 mmol/L (10.00-18.00); BUN/Creat Ratio 15.11 Ratio (12.00-20.00); Blood Urea Nitrogen 13.6 mg/dL (9.0-27.0); Calcium 10.1 mg/dL (8.7-10.3); Carbon Dioxide 28.4 mmol/L (20.0-27.5); Non-African American GFR(CKD) 63.4 (60.0-200.0); Potassium 4.6 mmol/L (3.5-5.5); T4, Free (Free Thyroxine) 1.28 ng/dL (0.800-1.800); Total Bilirubin 0.3 mg/dL (0.30-1.20); Total Protein 6.6 g/dL (6.2-8.2)
== END | disposition home or self-care (01) ==
LOC: LABWHC1 08:29
PROVIDERS: ATTEND Internal Medicine Endocrinology, Diabetes & Metabolism
DX: E03.8 Other specified hypothyroidism (principal); E27.3 Drug-induced adrenocortical insufficiency
CPT/HCPCS: 36415; 80053; 82024; 82533; 84439; 84443

== ENCOUNTER → 2022-03-23 | Outpatient (CLI) | payer MEDICARE ==
[2022-03-23 11:01] LABS: African American GFR (CKD) 99.6 (60.0-200.0); Albumin 4.6 g/dL (3.8-4.9); Albumin/Globulin Ratio 2.19 (1.60-3.17); Blood Urea Nitrogen 15.4 mg/dL (9.0-27.0); Globulin 2.1 g/dL (1.6-3.3); T4, Free (Free Thyroxine) 1.46 ng/dL (0.800-1.800); Total Bilirubin 0.4 mg/dL (0.30-1.20); Total Protein 6.7 g/dL (6.2-8.2)
== END | disposition home or self-care (01) ==
LOC: LABWHC1 07:43
PROVIDERS: ATTEND Internal Medicine Endocrinology, Diabetes & Metabolism
DX: E03.8 Other specified hypothyroidism (principal); E27.3 Drug-induced adrenocortical insufficiency
CPT/HCPCS: 36415; 80053; 82024; 82533; 84439; 84443

== ENCOUNTER → 2022-04-28 | Outpatient (CLI) | payer MEDICARE ==
--- NOTE | 2022-04-29 07:34 | MM ---
Reason for Exam: Screening (asymptomatic). Last screening mammogram was performed 12 month(s) ago. Patient History: Menarche at age 10. First Full-Term at age 28. Late child-bearing (after 28). Postmenopausal. Patient used Estrogen for 5 years. Patient used Progesterone for 5 years. Benign Excisional Biopsy on the right side. 03/27/2012, Benign Core Biopsy on the right side. Risk Values: Johanna 5 year model risk: 3.6%. NCI Lifetime model risk: 8.8%. Prior Study Comparison: 10/24/2012 Bilateral Diagnostic Mammogram, [facility]. 04/16/2018 Bilateral Screening Mammogram, [facility]. 04/27/2021 Bilateral Screening Mammogram, [facility]. Tissue Density: The breast tissue is heterogeneously dense. This may lower the sensitivity of mammography. Findings: Analyzed By CAD. Biopsy clip in the right breast is redemonstrated. There are a few scattered small benign-appearing round calcifications bilaterally redemonstrated. Some loosely grouped benign-appearing round calcifications in the right breast are associated with stable 6 mm round mass unchanged from 2018 and mammogram upper aspect middle depth. There is no suspicious group of microcalcifications or new suspicious mass in either breast. Overall Assessment: Benign, BI-RAD 2 Management: Screening Mammogram of both breasts in 1 year. A clinical breast exam by your physician is recommended on an annual basis and results should be correlated with mammographic findings. Electronically signed and approved by: Emmanuel Kidd M.D.
== END | disposition home or self-care (01) ==
LOC: RADMAMWWP 09:59
PROVIDERS: ATTEND Family Medicine
DX: Z12.31 Encounter for screening mammogram for malignant neoplasm of breast (principal); Z78.0 Asymptomatic menopausal state
CPT/HCPCS: 77063; 77067

== ENCOUNTER → 2022-06-08 | Outpatient (CLI) | payer MEDICARE ==
[2022-06-08 09:51] VITALS: BP 136/70; PULSE 79; RESP 18; TEMP 98.3
== END ==
LOC: PROCWHC3 09:06
PROVIDERS: ATTEND Nurse Practitioner Family
DX: M81.0 Age-related osteoporosis without current pathological fracture (principal); Z91.048 Other nonmedicinal substance allergy status; Z87.891 Personal history of nicotine dependence
CPT/HCPCS: 96365; J3489

== ENCOUNTER → 2022-07-29 | Outpatient (CLI) | payer MEDICARE ==
[2022-07-29 15:30] LABS: African American GFR (CKD) 73.4 (60.0-200.0); Albumin 4.5 g/dL (3.8-4.9); Albumin/Globulin Ratio 2.03 (1.60-3.17); Anion Gap 11.8 mmol/L (10.00-18.00); BUN/Creat Ratio 13.1 Ratio (12.00-20.00); Blood Urea Nitrogen 11.8 mg/dL (9.0-27.0); Calcium 9.5 mg/dL (8.7-10.3); Carbon Dioxide 25.3 mmol/L (20.0-27.5); Globulin 2.2 g/dL (1.6-3.3); Non-African American GFR(CKD) 63.4 (60.0-200.0); Potassium 4.2 mmol/L (3.5-5.5); T4, Free (Free Thyroxine) 1.55 ng/dL (0.800-1.800); Total Bilirubin 0.5 mg/dL (0.30-1.20); Total Protein 6.7 g/dL (6.2-8.2)
== END | disposition home or self-care (01) ==
LOC: LABWHC1 08:50
PROVIDERS: ATTEND Internal Medicine Endocrinology, Diabetes & Metabolism
DX: E27.3 Drug-induced adrenocortical insufficiency (principal)
CPT/HCPCS: 36415; 80053; 82024; 82533; 84439; 84443

== ENCOUNTER 2022-11-28 11:28 | Emergency (ER) | payer MEDICARE ==
[2022-11-28 11:58] VITALS: TEMP 98.5
--- NOTE | 2022-11-28 12:27 | ED ---
General Adult HPI - General Chief complaint: Recheck/Abnormal Lab/Rx Stated complaint: Low Sodium Time Seen by Provider: 11/28/22 12:15 Source: patient, RN notes reviewed, old records reviewed Mode of arrival: ambulatory Limitations: no limitations - History of Present Illness Initial comments: This is a nontoxic-appearing 22-year-old female that presents ambulatory with her walker complaining of increased weakness and exertional dyspnea for the past 10 days. Did have her labs drawn on Monday and was called by her primary care doctor today and told to come to the emergency room with a sodium level of 128. Patient does have a history of adrenal insufficiency taking hydrocortisone daily for the past year when she was diagnosed. Patient denies any chest pain or difficulty breathing at this time. No nausea vomiting diarrhea or fevers. -: days(s) (10) Severity scale (1-10): 0 Consistency: constant Associated Symptoms: malaise, weakness - Related Data Home Medications Medication Instructions Recorded Confirmed ALPRAZolam [Xanax] 0.25 mg PO Q8H PRN 09/17/16 08/25/21 Dicyclomine [Bentyl] 20 mg PO QID PRN 09/17/16 08/25/21 Levothyroxine Sodium [Synthroid] 88 mcg PO DAILY 09/17/16 08/25/21 SUMAtriptan succinate [Imitrex] 25 mg PO BID PRN 09/17/16 08/25/21 Albuterol Nebulized [Ventolin 2.5 mg INHALATION RT-Q4H PRN 02/09/21 08/25/21 Nebulized] Atorvastatin [Lipitor] 20 mg PO HS 02/09/21 08/25/21 Meloxicam [Mobic] 15 mg PO DAILY PRN 02/09/21 08/25/21 amLODIPine [Norvasc] 10 mg PO DAILY 02/09/21 08/25/21 methocarbamoL [Methocarbamol] 500 mg PO QID PRN 02/09/21 08/25/21 Cyanocobalamin (Vitamin B-12) 1,000 mcg PO DAILY 03/03/21 08/25/21 [Vitamin B-12] Loratadine [Claritin] 10 mg PO DAILY PRN 03/03/21 08/25/21 Allergy Injection 1 dose INJ Q7D 08/25/21 08/25/21 Esomeprazole Magnesium [NexIUM 20 mg PO DAILY PRN 08/25/21 08/25/21 24Hr] Fluticasone/Umeclidin/Vilanter 1 puff INHALATION RT-DAILY 08/25/21 08/25/21 [Trelegy Ellipta 200-62.5-25] Albuterol Sulfate [Proair 06/08/22 Digihaler] Fluticasone/Umeclidin/Vilanter 06/08/22 06/08/22 [Trelegy Ellipta 200-62.5-25] Magnesium Citrate and Oxide 250 mg PO 06/08/22 [Magnesium] Previous Rx's Medication Instructions Recorded Hydrocortisone [Cortef] 5 mg PO BID 30 Days #60 tab 08/29/21 Allergies Allergy/AdvReac Type Severity Reaction Status Date / Time adhesive tape Allergy Severe Rash/Hives Verified 11/28/22 11:58 Review of Systems ROS Statement: Those systems with pertinent positive or pertinent negative responses have been documented in the HPI. ROS Other: All systems not noted in ROS Statement are negative. Past Medical History Past Medical History: Asthma, Cancer, Fibromyalgia, GERD/Reflux, Osteoarthritis (OA), Thyroid Disorder Additional Past Medical History / Comment(s): Migraines History of Any Multi-Drug Resistant Organisms: None Reported Past Surgical History: Adenoidectomy, Bowel Resection, Cholecystectomy, Hernia Repair, Orthopedic Surgery, Tonsillectomy Additional Past Anesthesia/Blood Transfusion Reaction / Comment(s): never had a transfusion Past Psychological History: Anxiety, Depression, PTSD Smoking Status: Former smoker Past Alcohol Use History: Occasional Past Drug Use History: None Reported - Past Family History Mother Family Medical History: Congestive Heart Failure (CHF) Father History Unknown: Yes General Exam Limitations: no limitations General appearance: alert, in no apparent distress Head exam: Present: atraumatic Eye exam: Present: normal appearance. Absent: scleral icterus, conjunctival injection, periorbital swelling ENT exam: Present: mucous membranes moist Neck exam: Absent: tenderness, meningismus Respiratory exam: Present: normal lung sounds bilaterally. Absent: respiratory distress, accessory muscle use Cardiovascular Exam: Present: regular rate GI/Abdominal exam: Present: soft Extremities exam: Present: normal capillary refill Back exam: Present: normal inspection Neurological exam: Present: alert, oriented X3, normal gait (with walker) Psychiatric exam: Present: normal affect, normal mood Skin exam: Present: warm, dry, normal color. Absent: cyanosis, diaphoretic, petechiae, pallor Course Vital Signs 11/28/22 11/28/22 11/28/22 11:55 14:47 15:07 Temperature 98.5 F Pulse Rate 93 91 94 Respiratory 20 16 16 Rate Blood Pressure 118/71 136/84 148/87 O2 Sat by Pulse 98 96 Oximetry EKG Findings - EKG Results: EKG: sinus rhythm (Ventricular rate 84, LA interval 0.150, QRS 0.79, QTC 0.388, normal axis, sinus rhythm) Medical Decision Making - Medical Decision Making Patient sent by her primary care doctor Dr. Mcghee for sodium level 128 that was drawn last Monday. Patient has history of asthma, cancer, fibromyalgia, GERD, osteoarthritis, adrenal insufficiency, anxiety, depression and PTSD She takes hydrocortisone daily. Also complaining of increasing shortness of breath with exertion. She is hemodynamically stable Hemoglobin and hematocrit are stable. Electrolytes show sodium of 131, chloride of 94. She was given a liter of fluids. TSH 0.091, free T4 2.23, cortisol level 27 EKG shows sinus rhythm with a ventricular rate of 84, LA interval 0.150, QRS 0.79, QTC 0.388. No significant change compared to old 08/25/2021 Troponin negative at 0.012 Chest x-ray interpreted by me shows no evidence of focal consolidation. Radiologist impression no acute process. Patient will be discharged home to follow up with her primary care doctor this week. Continue her previously prescribed medications. She is agreeable to this plan of care. Case discussed with Dr. Langley. Was pt. sent in by a medical professional or institution (, PA, LAW REPORTER, urgent care, hospital, or snf...) When possible be specific @ -yes PCP Did you speak to anyone other than the patient for history (EMS, parent, family, police, friend...)? What history was obtained from this source @ -No Did you review nursing and triage notes (agree or disagree)? Why? @ -I reviewed and agree with nursing and triage notes Were old charts reviewed (outside hosp., previous admission, EMS record, old EKG, old radiological studies, urgent care reports/EKG's, snf records)? Report findings @ -Previous EKG Differential Diagnosis (chest pain, altered mental status, abdominal pain women, abdominal pain men, vaginal bleeding, weakness, fever, dyspnea, syncope, headache, dizziness, GI bleed, back pain, seizure, CVA, palpatations, mental health, musculoskeletal)? @ -Differential diagnosis hyponatremia, electrolyte abnormality, dehydration, adrenal crisis, medication nonadherence, this is not an all inclusive diagnosis EKG interpreted by me (3pts min.). @ -As above X-rays interpreted by me (1pt min.). @ -Yes as above CT interpreted by me (1pt min.). @ -None done U/S interpreted by me (1pt. min.). @ -None done What testing was considered but not performed or refused? (CT, X-rays, U/S, labs)? Why? @ -None What meds were considered but not given or refused? Why? @ -None Did you discuss the management of the patient with other professionals (professionals i.e. , PA, LAW REPORTER, lab, RT, psych nurse, manager social work, sleeve setter safety stitch, teacher, staff nuclear weapons officer, rehabilitation caseworker)? Give summary @ -No Was smoking cessation discussed for >3mins.? @ -No Was critical care preformed (if so, how long)? @ -No Were there social determinants of health that impacted care today? How? (Homelessness, low income, unemployed, alcoholism, drug addiction, transportation, low edu. Level, literacy, decrease access to med. care, fpc, rehab)? @ -No Was there de-escalation of care discussed even if they declined (Discuss DNR or withdrawal of care, Hospice)? DNR status @ -No What co-morbidities impacted this encounter? (DM, HTN, Smoking, COPD, CAD, Cancer, CVA, ARF, Chemo, Hep., AIDS, mental health diagnosis, sleep apnea, morbid obesity)? @ - asthma, cancer, fibromyalgia, GERD, osteoarthritis, adrenal insufficiency, anxiety, depression and PTSD Was patient admitted / discharged? Hospital course, mention meds given and route, prescriptions, significant lab abnormalities, going to OR and other pertinent info. @ -Discharged Undiagnosed new problem with uncertain prognosis? @ -No Drug Therapy requiring intensive monitoring for toxicity (Heparin, Nitro, Insulin, Cardizem)? @ -No Were any procedures done? @ -No Diagnosis/symptom? @ -Hyponatremia Acute, or Chronic, or Acute on Chronic? @ -Acute on chronic Uncomplicated (without systemic symptoms) or Complicated (systemic symptoms)? @ -Uncomplicated Side effects of treatment? @ -No Exacerbation, Progression, or Severe Exacerbation? @ -No Poses a threat to life or bodily function? How? (Chest pain, USA, NE, pneumonia, PE, COPD, DKA, ARF, appy, cholecystitis, CVA, Diverticulitis, Homicidal, Suicidal, threat to staff... and all critical care pts) @ -No - Lab Data Result diagrams: 11/28/22 12:28 11/28/22 12:28 Lab Results 11/28/22 11/28/22 11/28/22 Range/Units 12:28 12: 12:28 WBC 6.7 (3.8-10.6) k/uL RBC 4.12 (3.80-5.40) m/uL Hgb 14.6 (11.4-16.0) gm/dL Hct 42.0 (34.0-46.0) % MCV 102.0 H (80.0-100.0) fL MCH 35.5 H (25.0-35.0) pg MCHC 34.8 (31.0-37.0) g/dL RDW 12.4 (11.5-15.5) % Plt Count 281 (150-450) k/uL MPV 7.4 Neutrophils % 79 % Lymphocytes % 13 % Monocytes % 6 % Eosinophils % 1 % Basophils % 0 % Neutrophils # 5.2 (1.3-7.7) k/uL Lymphocytes # 0.9 L (1.0-4.8) k/uL Monocytes # 0.4 (0-1.0) k/uL Eosinophils # 0.0 (0-0.7) k/uL Basophils # 0.0 (0-0.2) k/uL Sodium 131 L (137-145) mmol/L Potassium 4.3 (3.5-5.1) mmol/L Chloride 94 L (98-107) mmol/L Carbon Dioxide 26 (22-30) mmol/L Anion Gap 11 mmol/L BUN 15 (7-17) mg/dL Creatinine 0.74 (0.52-1.04) mg/dL Est GFR (CKD-EPI)AfAm >90 (>60 ml/min/1.73 sqM) Est GFR (CKD-EPI)NonAf 81 (>60 ml/min/1.73 sqM) Glucose 86 (74-99) mg/dL Osmolality 276 L (280-301) mosm/kg Calcium 9.7 (8.4-10.2) mg/dL Phosphorus 3.5 (2.5-4.5) mg/dL Magnesium 2.1 (1.6-2.3) mg/dL Total Bilirubin 0.8 (0.2-1.3) mg/dL AST 64 H (14-36) U/L ALT 62 H (4-34) U/L Alkaline Phosphatase 63 (38-126) U/L Troponin I <0.012 (0.000-0.034) ng/mL Total Protein 7.1 (6.3-8.2) g/dL Albumin 4.7 (3.5-5.0) g/dL TSH 0.091 L (0.465-4.680) mIU/L Free T4 2.23 H (0.78-2.19) ng/dL Cortisol 27 ug/dL Disposition Clinical Impression: Hyponatremia Disposition: HOME SELF-CARE Condition: Good Instructions (If sedation given, give patient instructions): Hyponatremia (ED) Additional Instructions: Follow-up with your primary care doctor this week and return if any new or concerning symptoms. Continue your previous medications. Is patient prescribed a controlled substance at d/c from ED?: No Referrals: Opal Mcghee MD [Primary Care Provider] - 1-2 days Time of Disposition: 14:46
[2022-11-28 13:08] LABS: Basophils % (A) 0 %; Eosinophils % (A) 1 %; HGB 14.6 gm/dL (11.4-16.0); Lymphocytes # (A) 0.9 k/uL (1.0-4.8); Lymphocytes % (A) 13 %; MCH 35.5 pg (25.0-35.0); MCHC 34.8 g/dL (31.0-37.0); Mean Platelet Volume 7.4; Monocytes # (A) 0.4 k/uL (0-1.0); Monocytes % (A) 6 %; Neutrophils # (A) 5.2 k/uL (1.3-7.7); Neutrophils % (A) 79 %; Platelet Count 281 k/uL (150-450); RBC 4.12 m/uL (3.80-5.40); RDW 12.4 % (11.5-15.5); WBC 6.7 k/uL (3.8-10.6)
--- NOTE | 2022-11-28 13:09 | XR ---
EXAMINATION TYPE: XR chest 2V DATE OF EXAM: 11/28/2022 COMPARISON: 08/25/2021 TECHNIQUE: PA and lateral views submitted. HISTORY: Weakness FINDINGS: The lungs are clear and there is no pneumothorax, pleural effusion, or focal pneumonia. Heart size normal and no overt failure. Osseous structures demonstrate hypertrophic and degenerative changes of the spine. Postsurgical change overlying the cervical spine. There is chronic arthropathy of the righ t shoulder. Mild hyperinflation correlate for COPD. Curvature of the spine seen. Surgical clips right upper quadrant. IMPRESSION: 1. No acute process.
[2022-11-28 13:22] LABS: ALT 62 U/L (4-34); AST 64 U/L (14-36); African American GFR (CKD) >90 (>60 ml/min/1.73 sqM); Albumin 4.7 g/dL (3.5-5.0); Alkaline Phosphatase 63 U/L (38-126); Anion Gap 11 mmol/L; Blood Urea Nitrogen 15 mg/dL (7-17); Calcium 9.7 mg/dL (8.4-10.2); Carbon Dioxide 26 mmol/L (22-30); Chloride 94 mmol/L (98-107); Glucose 86 mg/dL (74-99); Magnesium 2.1 mg/dL (1.6-2.3); Non-African American GFR(CKD) 81 (>60 ml/min/1.73 sqM); Phosphorus 3.5 mg/dL (2.5-4.5); Potassium 4.3 mmol/L (3.5-5.1); Sodium 131 mmol/L (137-145); Total Bilirubin 0.8 mg/dL (0.2-1.3); Total Protein 7.1 g/dL (6.3-8.2)
[2022-11-28 14:21] LABS: T4, Free (Free Thyroxine) 2.23 ng/dL (0.78-2.19)
[2022-11-28 14:49] VITALS: RESP 16
[2022-11-28 15:08] VITALS: BP 148/87; PULSE 94
== END 2022-11-28 15:20 | disposition home or self-care (01) ==
LOC: EC 11:28
DX: E87.1 Hypo-osmolality and hyponatremia (principal); J45.909 Unspecified asthma, uncomplicated; M19.90 Unspecified osteoarthritis, unspecified site; K21.9 Gastro-esophageal reflux disease without esophagitis; E07.9 Disorder of thyroid, unspecified; F41.9 Anxiety disorder, unspecified; F32.A Depression, unspecified; Z87.891 Personal history of nicotine dependence; Z79.890 Hormone replacement therapy; Z79.899 Other long term (current) drug therapy; Z88.8 Allergy status to other drugs, medicaments and biological substances
CPT/HCPCS: 36415; 71046; 80053; 82533; 83735; 83930; 84100; 84439; 84443; 84484; 85025; 93005; 99284

== ENCOUNTER → 2022-12-07 | Outpatient (CLI) | payer MEDICARE ==
[2022-12-07 13:28] LABS: African American GFR (CKD) 82.1 (60.0-200.0); Albumin 4.6 g/dL (3.8-4.9); Albumin/Globulin Ratio 2.1 (1.60-3.17); Anion Gap 13.4 mmol/L (10.00-18.00); BUN/Creat Ratio 10.97 Ratio (12.00-20.00); Calcium 9.7 mg/dL (8.7-10.3); Carbon Dioxide 26.3 mmol/L (20.0-27.5); Globulin 2.2 g/dL (1.6-3.3); Non-African American GFR(CKD) 70.8 (60.0-200.0); Total Bilirubin 0.4 mg/dL (0.30-1.20); Total Protein 6.9 g/dL (6.2-8.2)
== END | disposition home or self-care (01) ==
LOC: LABWHC1 08:05
PROVIDERS: ATTEND Internal Medicine Endocrinology, Diabetes & Metabolism
DX: E27.3 Drug-induced adrenocortical insufficiency (principal)
CPT/HCPCS: 36415; 80053

== ENCOUNTER → 2023-01-27 | Outpatient (CLI) | payer MEDICARE | END | disposition home or self-care (01) | LOC: LABWHC1 08:01 | PROVIDERS: ATTEND Internal Medicine Endocrinology, Diabetes & Metabolism | DX: E03.8 Other specified hypothyroidism (principal); E27.3 Drug-induced adrenocortical insufficiency | CPT/HCPCS: 36415; 82024; 82533; 84443 ==

== ENCOUNTER → 2023-03-16 | Outpatient (CLI) | payer MEDICARE ==
[2023-03-16 16:37] LABS: ALT 38 U/L (8-44); AST 33 U/L (13-35); Albumin 4.8 d/dL (3.8-4.9); Albumin/Globulin Ratio 2.18 Ratio (1.60-3.17); Alkaline Phosphatase 47 U/L (41-126); Blood Urea Nitrogen 13.4 mg/dL (9.0-27.0); Calcium 10.6 mg/dL (8.7-10.3); Carbon Dioxide 26.6 mmol/L (21.6-31.8); Chloride 94 mmol/L (96-109); Globulin 2.2 d/dL (1.6-3.3); Glucose 92 mg/dL (70-110); Potassium 3.6 mmol/L (3.5-5.5); Sodium 135 mmol/L (135-145); T4, Free (Free Thyroxine) 2.18 ng/dL (0.80-1.80); Total Bilirubin 0.6 mg/dL (0.3-1.2)
== END | disposition home or self-care (01) ==
LOC: LABWHC1 08:01
PROVIDERS: ATTEND Internal Medicine Endocrinology, Diabetes & Metabolism
DX: E03.8 Other specified hypothyroidism (principal); E27.40 Unspecified adrenocortical insufficiency
CPT/HCPCS: 36415; 80053; 84439; 84443; 84480

== ENCOUNTER → 2023-04-19 | Outpatient (CLI) | payer MEDICARE ==
[2023-04-19 13:49] LABS: ALT 17 U/L (8-44); AST 17 U/L (13-35); Albumin 4.4 d/dL (3.8-4.9); Alkaline Phosphatase 47 U/L (41-126); BUN/Creat Ratio 11.44 Ratio (12.00-20.00); Blood Urea Nitrogen 10.3 mg/dL (9.0-27.0); Calcium 9.8 mg/dL (8.7-10.3); Carbon Dioxide 23.7 mmol/L (21.6-31.8); Chloride 96 mmol/L (96-109); Globulin 2.1 d/dL (1.6-3.3); Glucose 86 mg/dL (70-110); Potassium 4.5 mmol/L (3.5-5.5); Sodium 133 mmol/L (135-145); T4, Free (Free Thyroxine) 1.85 ng/dL (0.80-1.80); Total Bilirubin 0.3 mg/dL (0.3-1.2); Total Protein 6.5 d/dL (6.2-8.2)
== END | disposition home or self-care (01) ==
LOC: LABWHC1 06:57
PROVIDERS: ATTEND Internal Medicine Endocrinology, Diabetes & Metabolism
DX: E03.8 Other specified hypothyroidism (principal); E27.3 Drug-induced adrenocortical insufficiency
CPT/HCPCS: 36415; 80053; 84439; 84443; 84480

== ENCOUNTER → 2023-05-01 | Outpatient (CLI) | payer MEDICARE ==
--- NOTE | 2023-05-02 08:07 | MM ---
Reason for Exam: Screening (asymptomatic). Last screening mammogram was performed 12 month(s) ago. Patient History: Menarche at age 10. First Full-Term at age 28. Late child-bearing (after 28). Postmenopausal. Patient used Estrogen for 5 years. Patient used Progesterone for 5 years. Benign Excisional Biopsy on the right side. 03/27/2012, Benign Core Biopsy on the right side. Risk Values: Johanna 5 year model risk: 3.7%. NCI Lifetime model risk: 8.3%. Prior Study Comparison: 04/16/2018 Bilateral Screening Mammogram, [facility]. 04/27/2021 Bilateral Screening Mammogram, [facility]. 04/28/2022 Bilateral MG 3D screening mammo w/cad, [facility]. Tissue Density: The breast tissue is heterogeneously dense. This may lower the sensitivity of mammography. Findings: Analyzed By CAD. There is no suspicious group of microcalcifications or new suspicious mass in either breast. Biopsy clip within the right breast. Benign-appearing calcifications within both breasts. Chronic nodularity within both breasts. Overall Assessment: Benign, BI-RAD 2 Management: Screening Mammogram of both breasts in 1 year. A clinical breast exam by your physician is recommended on an annual basis and results should be correlated with mammographic findings. Note on Johanna scores and lifetime risk: 1. A Johanna score greater than 3% is considered moderate risk. If this is the case, consider specialist referral to assess eligibility for a risk reducing agent. If overall lifetime risk for the development of breast cancer is 20% or higher, the patient may qualify for future screening with alternating mammogram and breast MRI. Electronically signed and approved by: Miguel Hernandez D.O.
--- NOTE | 2023-05-02 15:17 | BD ---
EXAMINATION TYPE: Axial Bone Density DATE OF EXAM: 05/01/2023 CLINICAL HISTORY: 72 years old Female. ICD-10 CODE: Z78.0 MENOPAUSAL STATE Height: 60 Weight: 130 FRAX RISK QUESTIONS: Glucocorticoids (More than 3mos): yes (Ex: prednisone, prednisolone, methylprednisolone, dexamethasone, and hydrocortisone). History of Fracture in Adulthood: no Secondary Osteoporosis: no Rheumatoid Arthritis: no RISK FACTORS HISTORY OF: Surgery to lumbar Spine: yes When: 2019 Family History of Osteoporosis: no Active: yes Diet low in dairy products/other sources of calcium: no Postmenopausal woman: yes, age 49 Lost more than 2 inches in height since high school: no Frequent falls: no Poor Health: no Hyperparathyroidism: no Adrenal Insufficiency: yes MEDICATIONS: Prednisone or other steroids: yes How Lon.5 years Thyroid Medications: yes Which medication: Synthroid How Lon+ years Osteoporosis Medications: yes Which medication: Actonel How Lon years Additional Medications: yes xanax, Lipitor EXAM MEASUREMENTS: Bone mineral densitometry was performed using the [employer] System. Bone mineral density about the R hip (g/cm2): 0.709 Bone mineral density about the L hip (g/cm2): 0.739 T Score values are as follows: -----R Neck: -3.0 -----L Neck: -2.6 -----R Total: -2.4 -----L Total: -2.1 Z Score values are as follows: -----R Neck: -1.0 -----L Neck: -0.6 -----R Total: -0.5 -----L Total: -0.3 Bone mineral density has: Increased 3.3% since study of: 04/27/2021 Bone mineral density about the L Wrist (g/cm2): 0.468 T Score values are as follows: -----Dist. R+U: -3.8 -----Prox. R+U: -2.8 -----Radius total: -3.1 Z Score values are as follows: -----Dist. R+U: -1.5 -----Prox. R+U: -0.5 -----Radius total: -0.9 Bone mineral density has: Decreased -1.4% since study of: 04/27/2021 FRAX%s: The graph provided illustrates a 21.4% chance for a major osteoporotic fx and a 8.3% chance f or the hips probability for fx in 10 years time. IMPRESSION: Osteoporosis (T Score less than -2.5). There is increased fracture risk and therapy is usually indicated based on age. Re-Screen 1-2 years. NOTE: T-SCORE=SD OF THE YOUNG ADULT MEAN.
== END | disposition home or self-care (01) ==
LOC: RADMAMWWP 09:56
PROVIDERS: ATTEND Family Medicine
DX: Z12.31 Encounter for screening mammogram for malignant neoplasm of breast (principal); M81.0 Age-related osteoporosis without current pathological fracture; M85.89 Other specified disorders of bone density and structure, multiple sites; Z78.0 Asymptomatic menopausal state
CPT/HCPCS: 77063; 77067; 77080

== ENCOUNTER → 2023-10-04 | Outpatient (CLI) | payer MEDICARE ==
[2023-10-04 16:08] LABS: ALT 17 U/L (8-44); AST 23 U/L (13-35); Albumin 4.6 g/dL (3.8-4.9); Albumin/Globulin Ratio 1.92 Ratio (1.60-3.17); Alkaline Phosphatase 59 U/L (41-126); Carbon Dioxide 24.5 mmol/L (21.6-31.8); Chloride 93 mmol/L (96-109); Globulin 2.4 g/dL (1.6-3.3); Glucose 122 mg/dL (70-110); Potassium 3.9 mmol/L (3.5-5.5); Sodium 134 mmol/L (135-145); T4, Free (Free Thyroxine) 1.67 ng/dL (0.80-1.80); Total Bilirubin 0.5 mg/dL (0.3-1.2)
== END | disposition home or self-care (01) ==
LOC: LABWHC1 09:11
PROVIDERS: ATTEND Internal Medicine Endocrinology, Diabetes & Metabolism
DX: E03.8 Other specified hypothyroidism (principal); E27.3 Drug-induced adrenocortical insufficiency
CPT/HCPCS: 36415; 80053; 84439; 84443; 84480

== ENCOUNTER 2024-01-14 08:59 | Emergency (ER) | payer OTHER, MEDICARE ==
[2024-01-14 10:28] LABS: Appearance,Urine Cloudy (Clear); Bacteria,Urine Rare /hpf; Bilirubin,Urine Negative (Negative); Blood,Urine Trace (Negative); Color,Urine Yellow; Glucose,Urine (UA) Negative (Negative); Ketones,Urine Negative (Negative); Leukocyte Esterase,Urine Large (Negative); Mucus,Urine Moderate /hpf; Nitrite,Urine Negative (Negative); Protein,Urine 1+ (Negative); RBC,Urine 9 /hpf (0-5); Specific Gravity,Urine 1.021 (1.001-1.035); Squamous Epithelial Cell,Urine 32 /hpf (0-4); Transitional Epi Cells,Urine 4 /hpf (0-1); Urobilinogen,Urine <2.0 mg/dL (<2.0); WBC,Urine 92 /hpf (0-5)
[2024-01-14] MEDS: KETOROLAC 15 MG/ML 1 ML VIAL IVP STA (10:32)
--- NOTE | 2024-01-14 10:34 | ED ---
General Adult HPI - General Chief complaint: Abdominal Pain Stated complaint: BACK PAIN Time Seen by Provider: 01/14/24 09:10 Source: patient, RN notes reviewed, old records reviewed Mode of arrival: ambulatory Limitations: no limitations - History of Present Illness Initial comments: This is a 73-year-old female who presents to the emergency department complaining of left lower back pain. Patient states been ongoing for the last couple of weeks. Patient states movement makes it worse twisting makes it worse and bending makes it worse. Patient states if she remains still it does not hurt as bad. Patient does not remember injuring however she has no other symptoms. Patient denies numbness weakness. Patient is any blunt trauma. Patient denies any dysuria hematuria urinary frequency. Patient [place] any abdominal pain. - Related Data Home Medications Medication Instructions Recorded Confirmed ALPRAZolam [Xanax] 0.25 mg PO Q8H PRN 09/17/16 08/25/21 Dicyclomine [Bentyl] 20 mg PO QID PRN 09/17/16 08/25/21 Levothyroxine Sodium [Synthroid] 88 mcg PO DAILY 09/17/16 08/25/21 SUMAtriptan succinate [Imitrex] 25 mg PO BID PRN 09/17/16 08/25/21 Albuterol Nebulized [Ventolin 2.5 mg INHALATION RT-Q4H PRN 02/09/21 08/25/21 Nebulized] Atorvastatin [Lipitor] 20 mg PO HS 02/09/21 08/25/21 Meloxicam [Mobic] 15 mg PO DAILY PRN 02/09/21 08/25/21 amLODIPine [Norvasc] 10 mg PO DAILY 02/09/21 08/25/21 methocarbamoL 500 mg PO QID PRN 02/09/21 08/25/21 Cyanocobalamin (Vitamin B-12) 1,000 mcg PO DAILY 03/03/21 08/25/21 [Vitamin B-12] Loratadine [Claritin] 10 mg PO DAILY PRN 03/03/21 08/25/21 Allergy Injection 1 dose INJ Q7D 08/25/21 08/25/21 Esomeprazole Magnesium [NexIUM 20 mg PO DAILY PRN 08/25/21 08/25/21 24Hr] Fluticasone/Umeclidin/Vilanter 1 puff INHALATION RT-DAILY 08/25/21 08/25/21 [Trelegy Ellipta 200-62.5-25] Albuterol Sulfate [Proair 06/08/22 Digihaler] Fluticasone/Umeclidin/Vilanter 06/08/22 06/08/22 [Trelegy Ellipta 200-62.5-25] Magnesium Citrate and Oxide 250 mg PO 06/08/22 [Magnesium] Previous Rx's Medication Instructions Recorded Hydrocortisone [Cortef] 5 mg PO BID 30 Days #60 tab 08/29/21 Ketorolac [Toradol] 10 mg PO Q6HR #15 tab 01/14/24 Allergies Allergy/AdvReac Type Severity Reaction Status Date / Time adhesive tape Allergy Severe Rash/Hives Verified 06/13/23 10:47 Review of Systems ROS Statement: Those systems with pertinent positive or pertinent negative responses have been documented in the HPI. ROS Other: All systems not noted in ROS Statement are negative. Past Medical History Past Medical History: Asthma, Cancer, Fibromyalgia, GERD/Reflux, Osteoarthritis (OA), Thyroid Disorder Additional Past Medical History / Comment(s): Migraines History of Any Multi-Drug Resistant Organisms: None Reported Past Surgical History: Adenoidectomy, Bowel Resection, Cholecystectomy, Hernia Repair, Orthopedic Surgery, Tonsillectomy Additional Past Anesthesia/Blood Transfusion Reaction / Comment(s): never had a transfusion Past Psychological History: Anxiety, Depression, PTSD Smoking Status: Former smoker - Past Family History Mother Family Medical History: Congestive Heart Failure (CHF) Father History Unknown: Yes General Exam - General Exam Comments Initial Comments: GENERAL: Patient is well-developed and well-nourished. Patient is nontoxic and well- hydrated and is in mild distress. ENT: Neck is soft and supple. No significant lymphadenopathy is noted. Oropharynx is clear. Moist mucous membranes. Neck has full range of motion without eliciting any pain. EYES: The sclera were anicteric and conjunctiva were pink and moist. Extraocular movements were intact and pupils were equal round and reactive to light. Eyelids were unremarkable. PULMONARY: Unlabored respirations. Good breath sounds bilaterally. No audible rales rhonchi or wheezing was noted. CARDIOVASCULAR: There is a regular rate and rhythm without any murmurs gallops or rubs. ABDOMEN: Soft and nontender with normal bowel sounds. SKIN: Skin is clear with no lesions or rashes and otherwise unremarkable. NEUROLOGIC: Patient is alert and oriented x3. Cranial nerves II through XII are grossly intact. Motor and sensory are also intact. Normal speech, volume and content. Symmetrical smile. MUSCULOSKELETAL: Normal extremities with adequate strength and full range of motion. Patient has lower right abdominal pain and is reproducible with palpation LYMPHATICS: No significant lymphadenopathy is noted PSYCHIATRIC: Normal psychiatric evaluation. Limitations: no limitations Course Vital Signs 01/14/24 09:00 Temperature 98 F Pulse Rate 97 Respiratory 16 Rate Blood Pressure 130/80 O2 Sat by Pulse 98 Oximetry Medical Decision Making - Medical Decision Making Was pt. sent in by a medical professional or institution (, PA, ENGINEERING FACULTY MEMBER, urgent care, hospital, or custodial...) When possible be specific @ -No Did you speak to anyone other than the patient for history (EMS, parent, family, police, friend...)? What history was obtained from this source @ -No Did you review nursing and triage notes (agree or disagree)? Why? @ -I reviewed and agree with nursing and triage notes Were old charts reviewed (outside hosp., previous admission, EMS record, old EKG, old radiological studies, urgent care reports/EKG's, custodial records)? Report findings @ -No old charts were reviewed Differential Diagnosis (chest pain, altered mental status, abdominal pain women, abdominal pain men, vaginal bleeding, weakness, fever, dyspnea, syncope, headache, dizziness, GI bleed, back pain, seizure, CVA, palpatations, mental health, musculoskeletal)? @ -Differential Musculoskeletal Muscular strain, contusion, ligament sprain, fracture, arthritis, septic arthritis, bursitis, cellulitis, muscle spasm, nerve compression, DVT, arterial occlusion, herpes zoster, electrolyte abnormality, tumor.... This is not meant to be in all inclusive list EKG interpreted by me (3pts min.). @ -As above X-rays interpreted by me (1pt min.). @ -Lumbosacral spine shows no acute abnormality CT interpreted by me (1pt min.). @ -None done U/S interpreted by me (1pt. min.). @ -None done What testing was considered but not performed or refused? (CT, X-rays, U/S, labs)? Why? @ -None What meds were considered but not given or refused? Why? @ -None Did you discuss the management of the patient with other professionals (professionals i.e. , PA, ENGINEERING FACULTY MEMBER, lab, RT, psych nurse, social services aide, manager medical, teacher, correctional officer, welfare case worker)? Give summary @ -No Was smoking cessation discussed for >3mins.? @ -No Was critical care preformed (if so, how long)? @ -No Were there social determinants of health that impacted care today? How? (Homelessness, low income, unemployed, alcoholism, drug addiction, transportation, low edu. Level, literacy, decrease access to med. care, long term, rehab)? @ -No Was there de-escalation of care discussed even if they declined (Discuss DNR or withdrawal of care, Hospice)? DNR status @ -No What co-morbidities impacted this encounter? (DM, HTN, Smoking, COPD, CAD, Cancer, CVA, ARF, Chemo, Hep., AIDS, mental health diagnosis, sleep apnea, morbid obesity)? @ -None Was patient admitted / discharged? Hospital course, mention meds given and route, prescriptions, significant lab abnormalities, going to OR and other pertinent info. @ -Patient's initial urine was a dirty sample and second urine was much coke still cleaner there was a couple of white cells and some bacteria so it will be cultured. Patient will be contacted if there is a urinary tract infection. Patient was given Toradol in the emergency department for the back pain. Patient stated he felt considerably better. Patient will be discharged with Toradol Undiagnosed new problem with uncertain prognosis? @ -No Drug Therapy requiring intensive monitoring for toxicity (Heparin, Nitro, Insulin, Cardizem)? @ -No Were any procedures done? @ -No Diagnosis/symptom? @ -Musculoskeletal lower back pain Acute, or Chronic, or Acute on Chronic? @ -Default Uncomplicated (without systemic symptoms) or Complicated (systemic symptoms)? @ -Uncomplicated Side effects of treatment? @ -No Exacerbation, Progression, or Severe Exacerbation? @ -No Poses a threat to life or bodily function? How? (Chest pain, [place], [place], pneumonia, PE, COPD, DKA, ARF, appy, cholecystitis, CVA, Diverticulitis, Homicidal, Suicidal, threat to staff... and all critical care pts) @ -No - Lab Data Lab Results 01/14/24 01/14/24 Range/Units 09:47 10:57 Urine Color Yellow Yellow Urine Appearance Cloudy H Cloudy H (Clear) Urine pH 7.0 6.5 (5.0-8.0) Ur Specific [place] 1.021 1.023 (1.001-1.035) Urine Protein 1+ H Trace H (Negative) Urine Glucose (UA) Negative Negative (Negative) Urine Ketones Negative Negative (Negative) Urine Blood Trace H Negative (Negative) Urine Nitrite Negative Negative (Negative) Urine Bilirubin Negative Negative (Negative) Urine Urobilinogen <2.0 <2.0 (<2.0) mg/dL Ur Leukocyte Esterase Large H Large H (Negative) Urine RBC 9 H 4 (0-5) /hpf Urine WBC 92 H 4 (0-5) /hpf Ur Squamous Epith Cells 32 H 2 (0-4) /hpf Ur Transition Epith Cell 4 H (0-1) /hpf Urine Bacteria Rare H Occasional H (None) /hpf Urine Mucus Moderate H Many H (None) /hpf Disposition Clinical Impression: Lumbar strain Disposition: HOME SELF-CARE Instructions (If sedation given, give patient instructions): Low Back Strain (ED) Prescriptions: Ketorolac [Toradol] 10 mg PO Q6HR #15 tab Is patient prescribed a controlled substance at d/c from ED?: No Referrals: Opal Mcghee MD [Primary Care Provider] - 1-2 days Time of Disposition: 12:13
--- NOTE | 2024-01-14 10:40 | XR ---
Lumbar spine HISTORY: Trauma. COMPARISON: None. TECHNIQUE: 5 views of the lumbar spine were obtained. FINDINGS: There are postsurgical changes of metallic and interdisc fusion of L4 and L5. The lower thoracic and lumbar vertebral segments are normal in height. There is a slight retrolisthes is of L1 on L2. There is moderate to marked degenerative disc disease from T11 through L2. There is no acute lumbar spine fracture. Visualized sacrum and SI joints are normal. IMPRESSION: 1. No acute trauma to the lumbar spine. 2. Moderate to marked degenerative disc disease in lower thoracic and upper lumbar spine. 3. Postsurgical changes of lumbar fusion of L4 and L5.
[2024-01-14 11:50] LABS: Appearance,Urine Cloudy (Clear); Bacteria,Urine Occasional /hpf; Bilirubin,Urine Negative (Negative); Blood,Urine Negative (Negative); Color,Urine Yellow; Glucose,Urine (UA) Negative (Negative); Ketones,Urine Negative (Negative); Leukocyte Esterase,Urine Large (Negative); Mucus,Urine Many /hpf; Nitrite,Urine Negative (Negative); PH, Urine 6.5 (5.0-8.0); Protein,Urine Trace (Negative); RBC,Urine 4 /hpf (0-5); Specific Gravity,Urine 1.023 (1.001-1.035); Squamous Epithelial Cell,Urine 2 /hpf (0-4); Urobilinogen,Urine <2.0 mg/dL (<2.0); WBC,Urine 4 /hpf (0-5)
[2024-01-14 13:04] VITALS: BP 109/71; PULSE 85; RESP 18; TEMP 98
== END 2024-01-14 12:45 | disposition home or self-care (01) ==
LOC: EC 08:59
DX: S39.012A Strain of muscle, fascia and tendon of lower back, initial encounter (principal); Z87.891 Personal history of nicotine dependence; Z88.8 Allergy status to other drugs, medicaments and biological substances; X50.1XXA Overexertion from prolonged static or awkward postures, initial encounter
CPT/HCPCS: 81001; 87086; 72110; 99284; 96374; J1885

== ENCOUNTER 2024-02-20 09:39 | Day surgery (SDC) | payer MEDICARE ==
[2024-02-16 12:25] VITALS: BMI 27.1
[~2024-02-20 09:39] MED LIST changes: +LACTATED RINGERS 1,000 ML IV SCH; -SODIUM CHLORIDE 0.9% 500 ML 500 ML in EMPTY BAG 1 BAG IV PRN; -ZOLEDRONIC ACID 5 MG in SODIUM CHLORIDE 0.9% 100 ML IV NR
[2024-02-20] MEDS: IV FLUID CONTINUATION 1,000 ML IV ONE (10:31)
[2024-02-20 10:38] VITALS: TEMP 98
[2024-02-20 11:00] LABS: Glucose,Whole Blood 107 mg/dL (70-110)
[2024-02-20] MEDS ORDERED: PROPOFOL 10 MG/ML 20 ML VIAL IV ONE (11:40)
[2024-02-20] MEDS ORDERED: LIDOCAINE 1% INJ 10MG/ML (20 ML MDV) ONE (11:40)
--- NOTE | 2024-02-20 11:46 | P.PCN ---
Date of Procedure: 02/20/24 Procedure(s) Performed: BRIEF HISTORY: Patient is a 73-year-old, pleasant, white female scheduled for an upper endoscopy for evaluation of chronic epigastric pain and heartburn for the last 1 year duration. Procedure omeprazole 20 mg daily and symptoms are gradually improving.. PROCEDURE PERFORMED: Esophagogastroduodenoscopy with biopsy. PREOPERATIVE DIAGNOSIS: Longstanding history of GERD. IV sedation per anesthesia. PROCEDURE: After informed consent was obtained, the patient was brought into the endoscopy unit. IV sedation was administered by Anesthesia under continuous monitoring. Initially the Olympus GIF-140 video endoscope was inserted into the mouth. Esophagus intubated without any difficulty. It was gradually advanced into the stomach and duodenum and carefully examined. The bulb and the second part of the duodenum appeared normal. The scope at this time was withdrawn to the stomach, adequately insufflated with air, and upon careful examination, mucosa of the antrum, had mild diffuse gastritis and biopsies were done from this area. Body, cardia and the fundus appeared normal. The scope was then withdrawn into the esophagus. Size hiatal hernia noted. The GE junction was located at 35 cm from the incisors. The esophagus appeared normal. There were linear erosions noted in the distal esophagus consistent with LA grade B reflux esophagitis. The rest of the esophagus appeared normal and the patient tolerated the procedure well. IMPRESSION: 1. Linear erosions of the distal esophagus consistent with LA grade B reflux esophagitis. 2. Moderate size hiatal hernia 3. Mild antral gastritis. RECOMMENDATIONS: The findings of this examination were discussed with the patient as well as her family. She was advised to increase omeprazole to 20 mg twice daily for 3 months and follow antireflux measures. Follow-up up in the office in 3 to 4 weeks
[2024-02-20 12:21] VITALS: BP 116/70; PULSE 77; RESP 15
== END 2024-02-20 12:29 | disposition home or self-care (01) ==
LOC: ORWHC2ENDO 09:39
PROVIDERS: ATTEND Internal Medicine Gastroenterology
DX: K31.9 Disease of stomach and duodenum, unspecified (principal); K29.70 Gastritis, unspecified, without bleeding; K44.9 Diaphragmatic hernia without obstruction or gangrene; K21.9 Gastro-esophageal reflux disease without esophagitis; E78.5 Hyperlipidemia, unspecified; J45.909 Unspecified asthma, uncomplicated; E03.9 Hypothyroidism, unspecified; M79.7 Fibromyalgia; G43.909 Migraine, unspecified, not intractable, without status migrainosus; F41.9 Anxiety disorder, unspecified; F32.A Depression, unspecified; F43.10 Post-traumatic stress disorder, unspecified; Z79.890 Hormone replacement therapy; Z79.899 Other long term (current) drug therapy; Z88.8 Allergy status to other drugs, medicaments and biological substances
CPT/HCPCS: 88305; 43239; J2001; J2704

== ENCOUNTER → 2025-01-24 | Outpatient (CLI) | payer MEDICARE ==
[2025-01-24 11:39] LABS: African American GFR (CKD) >90 (>60 ml/min/1.73 sqM); Blood Urea Nitrogen 31 mg/dL (7-17); Non-African American GFR(CKD) 88 (>60 ml/min/1.73 sqM)
--- NOTE | 2025-01-24 13:23 | CT ---
EXAMINATION TYPE: CT abdomen pelvis wo/w con CT DLP: 1562 mGycm, Automated exposure control for dose reduction was used. DATE OF EXAM: 01/24/2025 12:58 PM COMPARISON: CT lumbar spine 10/11/2018, CTA chest 02/11/2021, CT left hip 01/05/2018, CT abdomen and pelv is 01/03/2014 CLINICAL INDICATION:Female, 74 years old with history of R63.4 ABN WEIGHT LOSS; ABNORMAL WEIGHT LOSS TECHNIQUE: Standard CT of the abdomen and pelvis before and after the uneventful administration of 100 mL of Isovue-300 intravenously. Oral contrast was administered. Coronal and sagittal reformats we re performed. FINDINGS: LOWER CHEST: Posterior dependent subsegmental atelectasis is noted. Mild coronary arterial calcificat ions. No pericardial effusion. ABDOMEN LIVER: Noncirrhotic morphology. Right hepatic lobe calcification granuloma. Right hepatic dome 1.9 cm enhancing lesion (series 6, image 17). GALLBLADDER AND BILE DUCTS: The gallbladder is surgically absent. No biliary ductal dilatation. PANCREAS: Unremarkable. SPLEEN: Couple of subcentimeter hypodense foci. Statistically benign likely representing hemangiomas or cysts. ADRENAL GLANDS: Unremarkable. KIDNEYS AND URETERS: No evidence of hydronephrosis or renal calculus. The kidneys enhance symmetrical ly. Contrast is demonstrated within both collecting systems and proximal ureters on the delayed phase . PELVIS BLADDER: Incompletely distended but grossly unremarkable. REPRODUCTIVE: Anteverted uterus with calcified fibroids with largest in the right uterine fundus amadou uring up to 2.6 cm. ABDOMEN & PELVIS STOMACH AND BOWEL: Small hiatal hernia, duodenum is unremarkable. Enteric contrast reaches the distal small bowel. Scattered distal colonic diverticula without evidence for acute diverticulitis. Postsur gical changes with anastomosis involving the rectosigmoid junction. No focal bowel wall thickening or surrounding inflammatory changes. No evidence of bowel obstruction. PERITONEUM: No evidence of pneumoperitoneum or free fluid. VASCULATURE: Mild atherosclerotic calcifications are present throughout the abdominal aorta and its b ranches. No evidence of aortic aneurysm. A few pelvic phleboliths. MUSCULOSKELETAL: No acute osseous abnormalities. S-shaped scoliotic curvature of the thoracolumbar sp ine. Postsurgical changes with bilateral pedicular screws and rods involving L4-L5 with a right-sided laminectomy. Multilevel degenerative disc disease and facet arthropathy. LYMPH NODES: No evidence for lymphadenopathy. SOFT TISSUE/ABDOMINAL WALL: Surgical coils of ventral wall hernia repair are noted. IMPRESSION: 1. No acute abdominal/pelvic process. 2. Right hepatic dome 1.9 cm nonspecific enhancing lesion. May represent a hemangioma versus other et iologies. Recommend further evaluation with MR abdomen with IV contrast. 3. Fibroid changes of the uterus. 4. Small hiatal hernia. 5. Postsurgical changes of the bowel with colonic diverticulosis. No evidence for acute diverticuliti s. [facility], , 01/24/2025 1:21 PM
== END | disposition home or self-care (01) ==
LOC: RADCTMAIN 09:46
PROVIDERS: ATTEND Internal Medicine Gastroenterology
DX: K44.9 Diaphragmatic hernia without obstruction or gangrene (principal); K57.30 Diverticulosis of large intestine without perforation or abscess without bleeding; R63.4 Abnormal weight loss; D25.9 Leiomyoma of uterus, unspecified; K76.89 Other specified diseases of liver
CPT/HCPCS: 82565; 84520; 74178; 36415; Q9967

== ENCOUNTER → 2025-01-30 | Outpatient (CLI) | payer MEDICARE ==
[~2025-01-30] MED LIST changes: -LACTATED RINGERS 1,000 ML IV SCH; +SODIUM CHLORIDE 0.9% 250 ML in EMPTY BAG 1 BAG IV PRN
[2025-01-30 10:54] VITALS: BP 125/77; PULSE 77; RESP 18; TEMP 97.9
[2025-01-30] MEDS: SODIUM CHLORIDE 0.9% 500 ML 500 ML in EMPTY BAG 1 BAG IV PRN (11:02)
[2025-01-30] MEDS: ZOLEDRONIC ACID 5 MG in SODIUM CHLORIDE 0.9% 100 ML IV NR (11:05)
== END ==
LOC: PROCWHC3 10:24
PROVIDERS: ATTEND Family Medicine
DX: M81.0 Age-related osteoporosis without current pathological fracture (principal)
CPT/HCPCS: 96365; J3489